=== PATIENT | male | born 1960 | race Caucasian/White ===

== ENCOUNTER 2021-07-01 20:02 | Emergency (ER) | payer OTHER ==
[~2021-07-01] VITALS: Ht 182.9 cm; Wt 90.9 kg
[~2021-07-01 20:02] MED LIST: DULO20CA27 PO; MIRT-89 PO; PANT-31 PO
[2021-07-02 00:59] LABS: BASOPHILS % (AUTO) 0.9 % (0.0-2.0); EOSINOPHILS % (AUTO) 2.6 % (1.0-6.0); HEMATOCRIT 46.2 % (41-53); HEMOGLOBIN 15.7 g/dL (13.5-17.5); LYMPHOCYTES % (AUTO) 30.3 % (22.0-44.0); MEAN CORPUSCULAR HEMOGLOBIN 28.2 pg (26.0-34.0); MEAN CORPUSCULAR HGB CONC 34.1 G/dL (31.0-37.0); MEAN CORPUSCULAR VOLUME 83 fL (80-100); MONOCYTES # (AUTO) 0.6 K/uL (0.1-1.0); MONOCYTES % (AUTO) 9.3 % (2.0-9.0); NEUTROPHILS # (AUTO) 3.7 K/uL (1.8-7.7); NEUTROPHILS % (AUTO) 56.9 % (40.0-70.0); PLATELET COUNT (AUTO) 197 K/uL (150-450); RED BLOOD CELL COUNT(AUTO) 5.59 MIL/uL (4.50-5.90); RED CELL DISTRIBUTION WIDTH 16.3 % (11.5-14.5)
[2021-07-02 01:12] LABS: ANION GAP 11 mmol/L (8-16); CALCIUM, TOTAL 9.2 mg/dL (8.8-10.5); CARBON DIOXIDE 26 mmol/L (22-29); CHLORIDE 103 mmol/L (98-107); CREATININE 0.79 mg/dL (0.60-1.30); GLOMERULAR FILTR. RATE CALC > 60 mL/min (>60); GLUCOSE,RANDOM 102 mg/dL (70-110); POTASSIUM 3.5 mmol/L (3.5-5.1); SODIUM SERUM 140 mmol/L (136-145); UREA NITROGEN, BLOOD 7 mg/dL (7-18)
[2021-07-02 01:19] LABS: ALANINE AMINOTRANSFERASE 90 U/L (12-78); ALBUMIN 3.3 g/dL (3.4-5.0); ALKALINE PHOSPHATASE 97 U/L (46-116); ASPARTATE AMINOTRANSFERASE 85 U/L (15-37); BILIRUBIN,TOTAL 0.9 mg/dL (0.1-1.0); TOTAL PROTEIN, SERUM 6.7 g/dL (6.4-8.2)
[2021-07-02] MEDS ORDERED: HYDROCODONE/ACETAMINOPHEN 5-325 MG TABLET PO ONE (03:00)
[2021-07-02 03:15] VITALS: BP 143/81
== END 2021-07-02 03:37 | disposition home or self-care (01) ==
LOC: EMS 20:05
DX: S90.31XA Contusion of right foot, initial encounter (principal); M25.552 Pain in left hip; R79.89 Other specified abnormal findings of blood chemistry; J45.909 Unspecified asthma, uncomplicated; F14.90 Cocaine use, unspecified, uncomplicated; F12.90 Cannabis use, unspecified, uncomplicated; F17.210 Nicotine dependence, cigarettes, uncomplicated; Z96.642 Presence of left artificial hip joint; W22.8XXA Striking against or struck by other objects, initial encounter; Y93.89 Activity, other specified; Y92.89 Other specified places as the place of occurrence of the external cause; Y99.8 Other external cause status
CPT/HCPCS: 36415; 73503; 73630; 80053; 84484; 85025; 99284; G0480

== ENCOUNTER 2021-07-03 02:51 | Emergency (ER) | payer OTHER ==
[~2021-07-03] VITALS: Ht 177.8 cm; Wt 86.4 kg
[2021-07-03 04:00] VITALS: BP 132/85
== END 2021-07-03 04:30 | disposition home or self-care (01) ==
LOC: EMS 02:52
DX: F41.9 Anxiety disorder, unspecified (principal); F17.210 Nicotine dependence, cigarettes, uncomplicated; F14.90 Cocaine use, unspecified, uncomplicated; F12.90 Cannabis use, unspecified, uncomplicated; M19.90 Unspecified osteoarthritis, unspecified site
CPT/HCPCS: 99283; Z7502

== ENCOUNTER 2021-07-03 06:56 | Emergency (ER) | payer OTHER | END 2021-07-03 08:26 | disposition left against medical advice (07) | LOC: EMS 06:56 | DX: Z53.21 Procedure and treatment not carried out due to patient leaving prior to being seen by health care provider (principal) | CPT/HCPCS: 93005 ==

== ENCOUNTER 2021-07-14 21:30 | Inpatient (IN) | payer MEDICAID, OTHER ==
[~2021-07-14] VITALS: Ht 177.8 cm; Wt 105.7 kg
[2021-07-14 23:25] LABS: COVID AG,FIA SOURCE NASOPHARYNGEAL
[2021-07-14 23:28] LABS: BASOPHILS % (AUTO) 0.6 % (0.0-2.0); EOSINOPHILS % (AUTO) 2.3 % (1.0-6.0); HEMATOCRIT 49.3 % (41-53); HEMOGLOBIN 16.4 g/dL (13.5-17.5); LYMPHOCYTES # (AUTO) 2.1 K/uL (1.0-4.8); LYMPHOCYTES % (AUTO) 32.1 % (22.0-44.0); MEAN CORPUSCULAR HEMOGLOBIN 28.1 pg (26.0-34.0); MEAN CORPUSCULAR HGB CONC 33.2 G/dL (31.0-37.0); MEAN CORPUSCULAR VOLUME 85 fL (80-100); MONOCYTES # (AUTO) 0.5 K/uL (0.1-1.0); MONOCYTES % (AUTO) 8.4 % (2.0-9.0); NEUTROPHILS # (AUTO) 3.7 K/uL (1.8-7.7); NEUTROPHILS % (AUTO) 56.6 % (40.0-70.0); PLATELET COUNT (AUTO) 215 K/uL (150-450); RED BLOOD CELL COUNT(AUTO) 5.82 MIL/uL (4.50-5.90)
[2021-07-14 23:37] LABS: AMPHET/METH SCREEN,URINE NEGATIVE (NEGATIVE); BARBITURATE SCREEN, URINE NEGATIVE (NEGATIVE); BENZODIAZEPINES SCREEN,URINE NEGATIVE (NEGATIVE); CANNABINOID SCREEN,URINE POSITIVE (NEGATIVE); COCAINE SCREEN,URINE POSITIVE (NEGATIVE); METHADONE SCREEN, URINE NEGATIVE (NEGATIVE); OPIATE SCREEN,URINE NEGATIVE (NEGATIVE)
[2021-07-14 23:37] LABS: ANION GAP 13 mmol/L (8-16); CARBON DIOXIDE 26 mmol/L (22-29); CHLORIDE 104 mmol/L (98-107); CREATININE 0.86 mg/dL (0.60-1.30); GLOMERULAR FILTR. RATE CALC > 60 mL/min (>60); GLUCOSE,RANDOM 111 mg/dL (70-110); POTASSIUM 3.6 mmol/L (3.5-5.1); SODIUM SERUM 143 mmol/L (136-145); UREA NITROGEN, BLOOD 4 mg/dL (7-18)
[2021-07-14 23:40] LABS: PHENCYCLIDINE SCREEN,URINE NEGATIVE (NEGATIVE)
[2021-07-14 23:43] LABS: ALANINE AMINOTRANSFERASE 87 U/L (12-78); ALBUMIN 3.5 g/dL (3.4-5.0); ALKALINE PHOSPHATASE 82 U/L (46-116); ASPARTATE AMINOTRANSFERASE 70 U/L (15-37); BILIRUBIN,TOTAL 0.6 mg/dL (0.1-1.0); TOTAL PROTEIN, SERUM 7.2 g/dL (6.4-8.2)
[2021-07-15] VITALS (10 sets, daily range): BP systolic 113–152; BP diastolic 70–91
[2021-07-15] MEDS ORDERED: ZOLPIDEM TARTRATE 10 MG TABLET PO PRN (01:15)
[2021-07-15] MEDS ORDERED: OLANZapine 5 MG RAPDIS TABLET PO PRN (01:15)
[2021-07-15 07:33] LABS: APPEARANCE,URINE CLEAR (CLEAR); BILIRUBIN,URINE NEGATIVE (NEGATIVE); GLUCOSE, URINE (UA) NEGATIVE (NEGATIVE); KETONES,URINE NEGATIVE (NEGATIVE); LEUKOCYTE ESTERASE ,URINE NEGATIVE (NEGATIVE); NITRATE,URINE NEGATIVE (NEGATIVE); OCCULT BLOOD,URINE NEGATIVE (NEGATIVE); PH,URINE 5.5 (5.0-8.0); PROTEIN,URINE NEGATIVE (NEGATIVE); UROBILINOGEN,URINE 0.2 mg/dL (<=1.0)
[2021-07-15] MEDS ORDERED: MAGNESIUM HYDROXIDE SUSPENSION 30 ML UDCUP PO PRN (10:15)
[2021-07-15] MEDS ORDERED: PROMETHAZINE HCL 25 MG TABLET PO PRN (10:15)
[2021-07-15] MEDS ORDERED: GuaiFENesin/D-METHORPHAN [SUGAR-FREE] 200-20MG/10 ML SYRUP UDCUP PO PRN (10:15)
[2021-07-15] MEDS ORDERED: TUBERCULIN, PURIFIED PROTEIN DERIVATIVE 5 TU/0.1 ML SYRINGE ID ONE (10:15)
[2021-07-15] MEDS ORDERED: MAG HYDROX/AL HYDROX/SIMETH ES 30 ML SUSPENSION UDCUP PO PRN (10:15)
[2021-07-15] MEDS ORDERED: LOPERAMIDE HCL 2 MG CAPSULE PO PRN (10:15)
[2021-07-15] MEDS ORDERED: HydrOXYzine PAMOATE 50 MG CAPSULE PO PRN (10:15)
[2021-07-15] MEDS: ACETAMINOPHEN 325 MG TABLET PO PRN ×2 (14:44→20:50)
[2021-07-15] MEDS: THIAMINE 100 MG TABLET PO SCH (16:28)
[2021-07-15] MEDS: MELATONIN 5 MG TABLET PO SCH (20:06)
[2021-07-15] MEDS ORDERED: MIRTAZAPINE 15 MG TABLET PO SCH (21:00)
[2021-07-16] VITALS (7 sets, daily range): BP systolic 119–159; BP diastolic 68–93
[2021-07-16] MEDS: ALBUTEROL SULFATE HFA 90 MCG/PUFF 8 GM INHALER IH PRN (05:11)
[2021-07-16] MEDS: ACETAMINOPHEN 325 MG TABLET PO PRN ×4 (05:12→22:27)
[2021-07-16 07:47] LABS: HEMOGLOBIN A1C 5.2 % (3.8-5.6)
[2021-07-16 08:00] LABS: CHOL/HDL RATIO 1.8 (4.2-7.3); FREE T4 (FREE THYROXINE) 0.89 ng/dL (0.76-1.46); THYROID STIMULATING HORMONE 0.63 uIU/mL (0.36-3.74)
[2021-07-16] MEDS: DULoxetine HCL 20 MG CAPSULE PO SCH (09:38)
[2021-07-16] MEDS: MULTIVITAMINS WITH MINERALS, THERAPEUTIC TABLET PO SCH (09:38)
[2021-07-16] MEDS: OMEGA-3/DHA/EPA/FISH OIL 1,000 MG CAPSULE PO SCH (09:38)
[2021-07-16] MEDS: NALTREXONE HCL 50 MG TABLET PO SCH (09:38)
[2021-07-16] MEDS: DIVALPROEX SODIUM 500 MG ER TABLET PO SCH ×3 (09:38→16:53)
[2021-07-16] MEDS: GABAPENTIN 300 MG CAPSULE PO SCH ×3 (09:38→16:53)
[2021-07-16] MEDS: FOLIC ACID 1 MG TABLET PO SCH (09:39)
[2021-07-16] MEDS: THIAMINE 100 MG TABLET PO SCH ×2 (09:39→16:53)
[2021-07-16] MEDS: LORazepam 2 MG TABLET PO PRN (16:53)
[2021-07-16] MEDS ORDERED: OLANZapine 5 MG RAPDIS TABLET PO SCH (21:00)
[2021-07-16] MEDS: MELATONIN 5 MG TABLET PO SCH (21:09)
[2021-07-16] MEDS: OLANZapine 10 MG RAPDIS TABLET PO SCH (21:10)
[2021-07-17] MEDS: DULoxetine HCL 20 MG CAPSULE PO SCH (08:49)
[2021-07-17] MEDS: GABAPENTIN 300 MG CAPSULE PO SCH ×3 (08:49→16:40)
[2021-07-17] MEDS: MULTIVITAMINS WITH MINERALS, THERAPEUTIC TABLET PO SCH (08:49)
[2021-07-17] MEDS: FOLIC ACID 1 MG TABLET PO SCH (08:49)
[2021-07-17] MEDS: THIAMINE 100 MG TABLET PO SCH ×2 (08:49→16:40)
[2021-07-17] MEDS: OMEGA-3/DHA/EPA/FISH OIL 1,000 MG CAPSULE PO SCH (08:49)
[2021-07-17] MEDS: NALTREXONE HCL 50 MG TABLET PO SCH (08:49)
[2021-07-17] MEDS: DIVALPROEX SODIUM 500 MG ER TABLET PO SCH ×4 (08:49→20:07)
[2021-07-17] MEDS: LORazepam 2 MG TABLET PO PRN (08:51)
[2021-07-17 09:30] VITALS: BP 127/86
[2021-07-17] MEDS: ALBUTEROL SULFATE HFA 90 MCG/PUFF 8 GM INHALER IH PRN (14:00)
[2021-07-17] MEDS ORDERED: NALT50TA PO (16:11)
[2021-07-17] MEDS ORDERED: GABA-1181 PO (16:11)
[2021-07-17] MEDS ORDERED: OLAN10TA26 PO (16:11)
[2021-07-17] MEDS ORDERED: DIVA-80 PO (16:11)
[2021-07-17] MEDS ORDERED: OMEG-135 PO (16:11)
[2021-07-17] MEDS ORDERED: DULO20CA27 PO (16:11)
[2021-07-17] MEDS ORDERED: MELA5TAB40 PO (16:11)
[2021-07-17 18:12] VITALS: BP 145/80
[2021-07-17] MEDS: MELATONIN 5 MG TABLET PO SCH (20:08)
[2021-07-17] MEDS: OLANZapine 10 MG RAPDIS TABLET PO SCH (20:09)
[2021-07-18] MEDS: DIVALPROEX SODIUM 500 MG ER TABLET PO SCH ×2 (08:08→12:20)
[2021-07-18] MEDS: GABAPENTIN 300 MG CAPSULE PO SCH ×2 (08:08→12:20)
[2021-07-18] MEDS: MULTIVITAMINS WITH MINERALS, THERAPEUTIC TABLET PO SCH (08:08)
[2021-07-18] MEDS: THIAMINE 100 MG TABLET PO SCH (08:08)
[2021-07-18] MEDS: FOLIC ACID 1 MG TABLET PO SCH (08:09)
[2021-07-18] MEDS: NALTREXONE HCL 50 MG TABLET PO SCH (08:09)
[2021-07-18] MEDS: DULoxetine HCL 20 MG CAPSULE PO SCH (08:09)
[2021-07-18] MEDS: OMEGA-3/DHA/EPA/FISH OIL 1,000 MG CAPSULE PO SCH (08:09)
[2021-07-18 08:17] VITALS: BP 170/99
== END 2021-07-18 12:49 | disposition home or self-care (01) | DRG 754 ==
LOC: EMS 21:42 → 3EX 07-15 05:00
PROVIDERS: ADMIT Psychiatry & Neurology Psychiatry; ATTEND Psychiatry & Neurology Psychiatry
DX: F32.9 Major depressive disorder, single episode, unspecified (principal); Z91.19 Patient's noncompliance with other medical treatment and regimen; R45.851 Suicidal ideations; F14.90 Cocaine use, unspecified, uncomplicated; F41.0 Panic disorder [episodic paroxysmal anxiety]; F43.10 Post-traumatic stress disorder, unspecified; M16.12 Unilateral primary osteoarthritis, left hip; J44.9 Chronic obstructive pulmonary disease, unspecified; R53.82 Chronic fatigue, unspecified; Z87.891 Personal history of nicotine dependence; Z96.649 Presence of unspecified artificial hip joint; Z20.822 Contact with and (suspected) exposure to COVID-19; Z79.899 Other long term (current) drug therapy
CPT/HCPCS: 80053; 80061; 80164; 81003; 83036; 84439; 84443; 85025; 86592; 99285; G0378; G0480; J3535; Q9967

== ENCOUNTER 2021-07-25 01:14 | Emergency (ER) | payer MEDICAID, OTHER ==
[~2021-07-25] VITALS: Ht 177.8 cm; Wt 102.3 kg
[~2021-07-25 01:14] MED LIST changes: +DIVA-80 PO; +GABA-1181 PO; +MELA5TAB40 PO; -MIRT-89 PO; +NALT50TA PO; +OLAN10TA26 PO; +OMEG-135 PO; -PANT-31 PO
[2021-07-25] MEDS ORDERED: ACETAMINOPHEN 500 MG TABLET PO ONE (01:45)
[2021-07-25 02:15] LABS: BASOPHILS % (AUTO) 0.6 % (0.0-2.0); EOSINOPHILS % (AUTO) 2.6 % (1.0-6.0); HEMATOCRIT 43.5 % (41-53); HEMOGLOBIN 14.6 g/dL (13.5-17.5); LYMPHOCYTES # (AUTO) 2.2 K/uL (1.0-4.8); LYMPHOCYTES % (AUTO) 35.3 % (22.0-44.0); MEAN CORPUSCULAR HEMOGLOBIN 28.3 pg (26.0-34.0); MEAN CORPUSCULAR HGB CONC 33.6 G/dL (31.0-37.0); MEAN CORPUSCULAR VOLUME 84 fL (80-100); MONOCYTES # (AUTO) 0.6 K/uL (0.1-1.0); MONOCYTES % (AUTO) 10.4 % (2.0-9.0); NEUTROPHILS # (AUTO) 3.2 K/uL (1.8-7.7); NEUTROPHILS % (AUTO) 51.1 % (40.0-70.0); PLATELET COUNT (AUTO) 200 K/uL (150-450); RED BLOOD CELL COUNT(AUTO) 5.15 MIL/uL (4.50-5.90); RED CELL DISTRIBUTION WIDTH 15.6 % (11.5-14.5)
[2021-07-25 02:23] LABS: ANION GAP 4 mmol/L (8-16); CALCIUM, TOTAL 8.3 mg/dL (8.8-10.5); CARBON DIOXIDE 32 mmol/L (22-29); CHLORIDE 104 mmol/L (98-107); CREATININE 0.95 mg/dL (0.60-1.30); GLOMERULAR FILTR. RATE CALC > 60 mL/min (>60); GLUCOSE,RANDOM 105 mg/dL (70-110); POTASSIUM 3.8 mmol/L (3.5-5.1); SODIUM SERUM 140 mmol/L (136-145); UREA NITROGEN, BLOOD 8 mg/dL (7-18)
[2021-07-25 02:29] LABS: ALANINE AMINOTRANSFERASE 64 U/L (12-78); ALBUMIN 3.1 g/dL (3.4-5.0); ALKALINE PHOSPHATASE 73 U/L (46-116); ASPARTATE AMINOTRANSFERASE 45 U/L (15-37); BILIRUBIN,TOTAL 0.3 mg/dL (0.1-1.0); TOTAL PROTEIN, SERUM 6.4 g/dL (6.4-8.2)
[2021-07-25 04:01] VITALS: BP 96/64
== END 2021-07-25 05:44 | disposition home or self-care (01) ==
LOC: EMS 01:15
DX: M25.512 Pain in left shoulder (principal); F10.129 Alcohol abuse with intoxication, unspecified; J45.909 Unspecified asthma, uncomplicated; F17.210 Nicotine dependence, cigarettes, uncomplicated; F12.90 Cannabis use, unspecified, uncomplicated; F14.90 Cocaine use, unspecified, uncomplicated; Z88.5 Allergy status to narcotic agent; Y90.6 Blood alcohol level of 120-199 mg/100 ml
CPT/HCPCS: 36415; 73030; 80053; 85025; 99284; G0480; 99283

== ENCOUNTER 2021-08-09 04:16 | Emergency (ER) | payer OTHER ==
[~2021-08-09] VITALS: Ht 177.8 cm; Wt 96.0 kg
[2021-08-09 05:03] LABS: COVID AG,FIA SOURCE NASOPHARYNGEAL
[2021-08-09 05:15] LABS: ANION GAP 13 mmol/L (8-16); CALCIUM, TOTAL 8.5 mg/dL (8.8-10.5); CARBON DIOXIDE 24 mmol/L (22-29); CHLORIDE 103 mmol/L (98-107); CREATININE 0.82 mg/dL (0.60-1.30); GLOMERULAR FILTR. RATE CALC > 60 mL/min (>60); GLUCOSE,RANDOM 103 mg/dL (70-110); POTASSIUM 3.6 mmol/L (3.5-5.1); SODIUM SERUM 140 mmol/L (136-145); UREA NITROGEN, BLOOD 5 mg/dL (7-18)
[2021-08-09] MEDS ORDERED: LORazepam 1 MG TABLET PO ONE (05:15)
[2021-08-09 05:17] LABS: BASOPHILS % (AUTO) 1.1 % (0.0-2.0); EOSINOPHILS % (AUTO) 2.9 % (1.0-6.0); HEMATOCRIT 44.7 % (41-53); LYMPHOCYTES # (AUTO) 1.7 K/uL (1.0-4.8); LYMPHOCYTES % (AUTO) 29.5 % (22.0-44.0); MEAN CORPUSCULAR HEMOGLOBIN 28.5 pg (26.0-34.0); MEAN CORPUSCULAR HGB CONC 33.6 G/dL (31.0-37.0); MEAN CORPUSCULAR VOLUME 85 fL (80-100); MONOCYTES # (AUTO) 0.5 K/uL (0.1-1.0); MONOCYTES % (AUTO) 8.3 % (2.0-9.0); NEUTROPHILS # (AUTO) 3.4 K/uL (1.8-7.7); NEUTROPHILS % (AUTO) 58.2 % (40.0-70.0); PLATELET COUNT (AUTO) 239 K/uL (150-450); RED BLOOD CELL COUNT(AUTO) 5.27 MIL/uL (4.50-5.90)
[2021-08-09 05:21] LABS: ALANINE AMINOTRANSFERASE 99 U/L (12-78); ALBUMIN 3.3 g/dL (3.4-5.0); ALKALINE PHOSPHATASE 86 U/L (46-116); ASPARTATE AMINOTRANSFERASE 102 U/L (15-37); BILIRUBIN,TOTAL 0.7 mg/dL (0.1-1.0); TOTAL PROTEIN, SERUM 6.7 g/dL (6.4-8.2)
[2021-08-09 07:08] VITALS: BP 119/73
== END 2021-08-09 07:44 | disposition home or self-care (01) ==
LOC: EMS 04:19
DX: F41.9 Anxiety disorder, unspecified (principal); J45.909 Unspecified asthma, uncomplicated; F12.90 Cannabis use, unspecified, uncomplicated; F14.90 Cocaine use, unspecified, uncomplicated; F17.210 Nicotine dependence, cigarettes, uncomplicated; Z88.5 Allergy status to narcotic agent; Z79.899 Other long term (current) drug therapy; Z20.822 Contact with and (suspected) exposure to COVID-19
CPT/HCPCS: 36415; 80053; 85025; 87426; 99283; G0480

== ENCOUNTER 2021-08-12 03:25 | Emergency (ER) | payer OTHER ==
[~2021-08-12] VITALS: Ht 175.3 cm; Wt 90.0 kg
[2021-08-12 03:51] LABS: COVID AG,FIA SOURCE NASAL SWAB
[2021-08-12 04:30] VITALS: BP 134/73
== END 2021-08-12 04:38 | disposition home or self-care (01) ==
LOC: EMS 03:27
DX: F43.21 Adjustment disorder with depressed mood (principal); J45.909 Unspecified asthma, uncomplicated; F12.90 Cannabis use, unspecified, uncomplicated; F14.90 Cocaine use, unspecified, uncomplicated; F17.210 Nicotine dependence, cigarettes, uncomplicated; Z88.5 Allergy status to narcotic agent; Z79.899 Other long term (current) drug therapy; Z20.822 Contact with and (suspected) exposure to COVID-19
CPT/HCPCS: 99283

== ENCOUNTER 2021-08-18 06:40 | Emergency (ER) | payer OTHER ==
[~2021-08-18] VITALS: Ht 177.8 cm; Wt 102.3 kg
[~2021-08-18 06:40] MED LIST changes: +OMEG-108 PO; -OMEG-135 PO
[2021-08-18 07:31] LABS: BASOPHILS % (AUTO) 0.8 % (0.0-2.0); EOSINOPHILS % (AUTO) 0.7 % (1.0-6.0); HEMATOCRIT 44.4 % (41-53); HEMOGLOBIN 14.9 g/dL (13.5-17.5); LYMPHOCYTES # (AUTO) 1.1 K/uL (1.0-4.8); LYMPHOCYTES % (AUTO) 19.5 % (22.0-44.0); MEAN CORPUSCULAR HEMOGLOBIN 28.9 pg (26.0-34.0); MEAN CORPUSCULAR HGB CONC 33.5 G/dL (31.0-37.0); MEAN CORPUSCULAR VOLUME 86 fL (80-100); MONOCYTES # (AUTO) 0.5 K/uL (0.1-1.0); MONOCYTES % (AUTO) 8.9 % (2.0-9.0); NEUTROPHILS # (AUTO) 4.1 K/uL (1.8-7.7); NEUTROPHILS % (AUTO) 70.1 % (40.0-70.0); PLATELET COUNT (AUTO) 165 K/uL (150-450); RED BLOOD CELL COUNT(AUTO) 5.15 MIL/uL (4.50-5.90); RED CELL DISTRIBUTION WIDTH 14.6 % (11.5-14.5)
[2021-08-18 07:42] LABS: APPEARANCE,URINE CLOUDY (CLEAR); BILIRUBIN,URINE NEGATIVE (NEGATIVE); GLUCOSE, URINE (UA) NEGATIVE (NEGATIVE); KETONES,URINE 40 mg/dL (NEGATIVE); LEUKOCYTE ESTERASE ,URINE TRACE (NEGATIVE); NITRATE,URINE NEGATIVE (NEGATIVE); OCCULT BLOOD,URINE NEGATIVE (NEGATIVE); PROTEIN,URINE NEGATIVE (NEGATIVE)
[2021-08-18 07:47] LABS: ANION GAP 11 mmol/L (8-16); CALCIUM, TOTAL 9.1 mg/dL (8.8-10.5); CARBON DIOXIDE 24 mmol/L (22-29); CHLORIDE 101 mmol/L (98-107); CREATININE 0.71 mg/dL (0.60-1.30); GLOMERULAR FILTR. RATE CALC > 60 mL/min (>60); GLUCOSE,RANDOM 101 mg/dL (70-110); POTASSIUM 3.4 mmol/L (3.5-5.1); SODIUM SERUM 136 mmol/L (136-145); UREA NITROGEN, BLOOD 5 mg/dL (7-18)
[2021-08-18 07:52] LABS: AMPHET/METH SCREEN,URINE NEGATIVE (NEGATIVE); BARBITURATE SCREEN, URINE NEGATIVE (NEGATIVE); BENZODIAZEPINES SCREEN,URINE NEGATIVE (NEGATIVE); CANNABINOID SCREEN,URINE POSITIVE (NEGATIVE); COCAINE SCREEN,URINE NEGATIVE (NEGATIVE); METHADONE SCREEN, URINE NEGATIVE (NEGATIVE); OPIATE SCREEN,URINE NEGATIVE (NEGATIVE)
[2021-08-18 07:54] LABS: PHENCYCLIDINE SCREEN,URINE NEGATIVE (NEGATIVE)
[2021-08-18 07:56] LABS: B-TYPE NATRIURETIC PEPTIDE 5 pg/mL (0-100)
[2021-08-18 07:57] LABS: PROTHROMBIN TIME 10.4 SEC (9.4-11.6)
[2021-08-18 08:09] LABS: AMORPHOUS SEDIMENT,UR Moderate /LPF (None Seen); BACTERIA,URINE None Seen /HPF (None Seen); RBC,URINE None Seen /HPF (0-2); WBC,URINE 0-2 /HPF (0-5)
[2021-08-18 08:15] LABS: ALANINE AMINOTRANSFERASE 99 U/L (12-78); ALBUMIN 3.4 g/dL (3.4-5.0); ALKALINE PHOSPHATASE 78 U/L (46-116); ASPARTATE AMINOTRANSFERASE 98 U/L (15-37); BILIRUBIN,TOTAL 1.1 mg/dL (0.1-1.0); CREATINE KINASE, TOTAL ONLY 423 U/L (39-308); TOTAL PROTEIN, SERUM 6.9 g/dL (6.4-8.2)
[2021-08-18 09:23] VITALS: BP 135/83
== END 2021-08-18 10:10 | disposition home or self-care (01) ==
LOC: EMS 06:42
DX: R07.89 Other chest pain (principal); J45.909 Unspecified asthma, uncomplicated; F17.210 Nicotine dependence, cigarettes, uncomplicated; F12.90 Cannabis use, unspecified, uncomplicated; F14.90 Cocaine use, unspecified, uncomplicated; Z88.5 Allergy status to narcotic agent; Z79.899 Other long term (current) drug therapy
CPT/HCPCS: 36415; 71045; 80053; 80307; 81001; 82550; 82553; 83880; 84484; 85025; 85610; 85730; 93005; 99285; G0480

== ENCOUNTER 2021-09-09 01:13 | Inpatient (IN) | payer MEDICAID, OTHER ==
[~2021-09-09] VITALS: Ht 177.8 cm; Wt 102.0 kg
[2021-09-09] MEDS ORDERED: LORazepam 1 MG TABLET PO ONE (01:45)
[2021-09-09 01:54] LABS: BASOPHILS % (AUTO) 0.5 % (0.0-2.0); EOSINOPHILS % (AUTO) 2.1 % (1.0-6.0); HEMATOCRIT 43.2 % (41-53); HEMOGLOBIN 14.7 g/dL (13.5-17.5); LYMPHOCYTES # (AUTO) 1.8 K/uL (1.0-4.8); MEAN CORPUSCULAR HEMOGLOBIN 29.7 pg (26.0-34.0); MEAN CORPUSCULAR HGB CONC 34.1 G/dL (31.0-37.0); MEAN CORPUSCULAR VOLUME 87 fL (80-100); MONOCYTES # (AUTO) 0.5 K/uL (0.1-1.0); NEUTROPHILS # (AUTO) 4.1 K/uL (1.8-7.7); NEUTROPHILS % (AUTO) 62.4 % (40.0-70.0); PLATELET COUNT (AUTO) 211 K/uL (150-450); RED BLOOD CELL COUNT(AUTO) 4.95 MIL/uL (4.50-5.90); RED CELL DISTRIBUTION WIDTH 14.6 % (11.5-14.5)
[2021-09-09 02:01] LABS: ANION GAP 12 mmol/L (8-16); CALCIUM, TOTAL 8.7 mg/dL (8.8-10.5); CARBON DIOXIDE 24 mmol/L (22-29); CHLORIDE 101 mmol/L (98-107); CREATININE 0.76 mg/dL (0.60-1.30); GLOMERULAR FILTR. RATE CALC > 60 mL/min (>60); GLUCOSE,RANDOM 87 mg/dL (70-110); POTASSIUM 3.7 mmol/L (3.5-5.1); SODIUM SERUM 137 mmol/L (136-145); UREA NITROGEN, BLOOD 7 mg/dL (7-18)
[2021-09-09 02:07] LABS: ALANINE AMINOTRANSFERASE 71 U/L (12-78); ALBUMIN 3.4 g/dL (3.4-5.0); ALKALINE PHOSPHATASE 77 U/L (46-116); ASPARTATE AMINOTRANSFERASE 76 U/L (15-37); BILIRUBIN,TOTAL 0.9 mg/dL (0.1-1.0); TOTAL PROTEIN, SERUM 6.9 g/dL (6.4-8.2); VALPROIC ACID < 3 mcg/mL (50-100)
[2021-09-09] MEDS ORDERED: ZOLPIDEM TARTRATE 10 MG TABLET PO PRN (03:00)
[2021-09-09 03:40] LABS: COVID AG,FIA SOURCE NASAL SWAB
[2021-09-09 05:52] LABS: AMPHET/METH SCREEN,URINE POSITIVE (NEGATIVE); BENZODIAZEPINES SCREEN,URINE NEGATIVE (NEGATIVE); CANNABINOID SCREEN,URINE POSITIVE (NEGATIVE); COCAINE SCREEN,URINE NEGATIVE (NEGATIVE); METHADONE SCREEN, URINE NEGATIVE (NEGATIVE); OPIATE SCREEN,URINE NEGATIVE (NEGATIVE)
[2021-09-09 06:07] LABS: BARBITURATE SCREEN, URINE NEGATIVE (NEGATIVE)
[2021-09-09 06:08] LABS: PHENCYCLIDINE SCREEN,URINE NEGATIVE (NEGATIVE)
[2021-09-09 06:24] LABS: APPEARANCE,URINE CLEAR (CLEAR); BILIRUBIN,URINE NEGATIVE (NEGATIVE); GLUCOSE, URINE (UA) NEGATIVE (NEGATIVE); KETONES,URINE NEGATIVE (NEGATIVE); LEUKOCYTE ESTERASE ,URINE SMALL (NEGATIVE); NITRATE,URINE NEGATIVE (NEGATIVE); OCCULT BLOOD,URINE NEGATIVE (NEGATIVE); PROTEIN,URINE TRACE mg/dL (NEGATIVE); SPECIFIC GRAVITIY, URINE 1.024 (1.003-1.030); UROBILINOGEN,URINE <=1.0 mg/dL (<=1.0)
[2021-09-09 06:36] LABS: BACTERIA,URINE None Seen /HPF (None Seen); CALCIUM OXALATE CRYSTALS,UR Few /LPF (None Seen); RBC,URINE 0-2 /HPF (0-2); WBC,URINE 0-2 /HPF (0-5)
[2021-09-09] MEDS ORDERED: ALBUTEROL SULFATE 2.5 MG/0.5 ML NEB SOLUTION NEB ONE (08:30)
[2021-09-09] MEDS ORDERED: DiphenhydrAMINE HCL 50 MG/ML VIAL IM ONE (09:45)
[2021-09-09] MEDS ORDERED: LORazepam 2 MG/ML VIAL IM ONE (09:45)
[2021-09-09] MEDS ORDERED: HALOPERIDOL LACTATE 5 MG/ML VIAL IM ONE (09:45)
[2021-09-09 11:21] VITALS: BP 103/63
[2021-09-09] MEDS ORDERED: MAG HYDROX/AL HYDROX/SIMETH ES 30 ML SUSPENSION UDCUP PO PRN (12:00)
[2021-09-09] MEDS ORDERED: PROMETHAZINE HCL 25 MG TABLET PO PRN (12:00)
[2021-09-09] MEDS ORDERED: TUBERCULIN, PURIFIED PROTEIN DERIVATIVE 5 TU/0.1 ML SYRINGE ID ONE (12:00)
[2021-09-09] MEDS ORDERED: ACETAMINOPHEN 325 MG TABLET PO PRN (12:00)
[2021-09-09] MEDS ORDERED: HydrOXYzine PAMOATE 50 MG CAPSULE PO PRN (12:00)
[2021-09-09] MEDS ORDERED: GuaiFENesin/D-METHORPHAN [SUGAR-FREE] 200-20MG/10 ML SYRUP UDCUP PO PRN (12:00)
[2021-09-09] MEDS ORDERED: LOPERAMIDE HCL 2 MG CAPSULE PO PRN (12:00)
[2021-09-09] MEDS ORDERED: MAGNESIUM HYDROXIDE SUSPENSION 30 ML UDCUP PO PRN (12:00)
[2021-09-09] MEDS ORDERED: INFLUENZA VIRUS VACCINE QVS 2021-22 (6MO+)/PF 60 MCG/0.5 ML SYRINGE IM. ONE (14:30)
[2021-09-09 16:32] VITALS: BP 106/82
[2021-09-09] MEDS: THIAMINE 100 MG TABLET PO SCH (16:59)
[2021-09-09] MEDS: LORazepam 2 MG TABLET PO PRN (17:11)
[2021-09-09] MEDS: OLANZapine 5 MG RAPDIS TABLET PO PRN (17:12)
[2021-09-09] MEDS: OLANZapine 5 MG RAPDIS TABLET PO SCH (20:03)
[2021-09-09] MEDS: MELATONIN 5 MG TABLET PO SCH (20:03)
[2021-09-10 08:19] VITALS: BP 130/77
[2021-09-10] MEDS: THIAMINE 100 MG TABLET PO SCH ×2 (09:32→16:53)
[2021-09-10] MEDS: OMEGA-3/DHA/EPA/FISH OIL 1,000 MG CAPSULE PO SCH (09:32)
[2021-09-10] MEDS: LORazepam 2 MG TABLET PO PRN (09:32)
[2021-09-10] MEDS: FOLIC ACID 1 MG TABLET PO SCH (09:32)
[2021-09-10] MEDS: MULTIVITAMINS WITH MINERALS, THERAPEUTIC TABLET PO SCH (09:32)
[2021-09-10] MEDS: NALTREXONE HCL 50 MG TABLET PO SCH (09:34)
[2021-09-10] MEDS ORDERED: PALIPERIDONE PALMITATE 234 MG/1.5 ML SYRINGE IM ONE (14:30)
[2021-09-10] MEDS ORDERED: NALT50TA PO (14:38)
[2021-09-10] MEDS ORDERED: OMEG-108 PO (14:38)
[2021-09-10] MEDS ORDERED: MELA5TAB40 PO (14:38)
[2021-09-10] MEDS ORDERED: OLAN5TAB94 PO (14:38)
[2021-09-10 16:19] VITALS: BP 126/77
[2021-09-10] MEDS: OLANZapine 5 MG RAPDIS TABLET PO SCH (20:43)
[2021-09-10] MEDS: MELATONIN 5 MG TABLET PO SCH (20:43)
[2021-09-11 03:07] VITALS: BP 141/80
[2021-09-11] MEDS: LORazepam 2 MG TABLET PO PRN (03:13)
[2021-09-11] MEDS: OLANZapine 5 MG RAPDIS TABLET PO PRN (03:13)
[2021-09-11 08:07] VITALS: BP 137/68
[2021-09-11] MEDS: THIAMINE 100 MG TABLET PO SCH (08:39)
[2021-09-11] MEDS: MULTIVITAMINS WITH MINERALS, THERAPEUTIC TABLET PO SCH (08:39)
[2021-09-11] MEDS: OMEGA-3/DHA/EPA/FISH OIL 1,000 MG CAPSULE PO SCH (08:39)
[2021-09-11] MEDS: NALTREXONE HCL 50 MG TABLET PO SCH (08:39)
[2021-09-11] MEDS: FOLIC ACID 1 MG TABLET PO SCH (08:39)
[2021-09-14] MEDS ORDERED: PALIPERIDONE PALMITATE 156 MG/ML SYRINGE IM ONE (09:00)
== END 2021-09-11 09:15 | disposition home or self-care (01) | DRG 750 ==
LOC: EMS 01:14 → B2S 08:37
PROVIDERS: ADMIT Psychiatry & Neurology Psychiatry; ATTEND Psychiatry & Neurology Psychiatry
DX: F25.1 Schizoaffective disorder, depressive type (principal); F12.90 Cannabis use, unspecified, uncomplicated; F17.200 Nicotine dependence, unspecified, uncomplicated; Z96.649 Presence of unspecified artificial hip joint; Z20.822 Contact with and (suspected) exposure to COVID-19; K21.9 Gastro-esophageal reflux disease without esophagitis; Z55.9 Problems related to education and literacy, unspecified; Z59.9 Problem related to housing and economic circumstances, unspecified; Z63.9 Problem related to primary support group, unspecified; Z65.3 Problems related to other legal circumstances; Z88.5 Allergy status to narcotic agent; Z79.899 Other long term (current) drug therapy
CPT/HCPCS: 80053; 80164; 81001; 85025; 94640; 99291; G0480; J1200; J1630; J2060; Q9967

== ENCOUNTER 2021-10-03 11:48 | Emergency (ER) | payer MEDICAID, OTHER ==
[~2021-10-03] VITALS: Ht 177.8 cm; Wt 104.0 kg
[~2021-10-03 11:48] MED LIST changes: -DIVA-80 PO; -DULO20CA27 PO; -GABA-1181 PO; -OLAN10TA26 PO; +OLAN5TAB94 PO
[2021-10-03 11:51] VITALS: BP 98/55
[2021-10-03] MEDS ORDERED: IBUP-2759 PO (11:51)
[2021-10-03 13:18] LABS: BASOPHILS % (AUTO) 0.7 % (0.0-2.0); EOSINOPHILS % (AUTO) 0.9 % (1.0-6.0); HEMATOCRIT 46.1 % (41-53); HEMOGLOBIN 15.8 g/dL (13.5-17.5); LYMPHOCYTES # (AUTO) 1.8 K/uL (1.0-4.8); LYMPHOCYTES % (AUTO) 19.9 % (22.0-44.0); MEAN CORPUSCULAR HGB CONC 34.3 G/dL (31.0-37.0); MEAN CORPUSCULAR VOLUME 88 fL (80-100); MONOCYTES # (AUTO) 0.7 K/uL (0.1-1.0); MONOCYTES % (AUTO) 8.1 % (2.0-9.0); NEUTROPHILS # (AUTO) 6.3 K/uL (1.8-7.7); NEUTROPHILS % (AUTO) 70.4 % (40.0-70.0); PLATELET COUNT (AUTO) 238 K/uL (150-450); RED BLOOD CELL COUNT(AUTO) 5.27 MIL/uL (4.50-5.90); RED CELL DISTRIBUTION WIDTH 13.6 % (11.5-14.5)
[2021-10-03 13:27] LABS: ANION GAP 9 mmol/L (8-16); CALCIUM, TOTAL 9.1 mg/dL (8.8-10.5); CARBON DIOXIDE 29 mmol/L (22-29); CHLORIDE 99 mmol/L (98-107); CREATININE 0.91 mg/dL (0.60-1.30); GLOMERULAR FILTR. RATE CALC > 60 mL/min (>60); GLUCOSE,RANDOM 101 mg/dL (70-110); POTASSIUM 3.8 mmol/L (3.5-5.1); SODIUM SERUM 137 mmol/L (136-145); UREA NITROGEN, BLOOD 9 mg/dL (7-18)
[2021-10-03 13:31] LABS: AMPHET/METH SCREEN,URINE NEGATIVE (NEGATIVE); BARBITURATE SCREEN, URINE NEGATIVE (NEGATIVE); BENZODIAZEPINES SCREEN,URINE NEGATIVE (NEGATIVE); CANNABINOID SCREEN,URINE POSITIVE (NEGATIVE); COCAINE SCREEN,URINE POSITIVE (NEGATIVE); METHADONE SCREEN, URINE NEGATIVE (NEGATIVE); OPIATE SCREEN,URINE NEGATIVE (NEGATIVE)
[2021-10-03 13:32] LABS: ALANINE AMINOTRANSFERASE 41 U/L (12-78); ALBUMIN 3.4 g/dL (3.4-5.0); ALKALINE PHOSPHATASE 76 U/L (46-116); ASPARTATE AMINOTRANSFERASE 27 U/L (15-37); BILIRUBIN,TOTAL 0.7 mg/dL (0.1-1.0)
[2021-10-03 13:36] LABS: PHENCYCLIDINE SCREEN,URINE NEGATIVE (NEGATIVE)
[2021-10-03 14:25] LABS: COVID AG,FIA SOURCE NASAL SWAB
[2021-10-03] MEDS ORDERED: LORazepam 1 MG TABLET PO ONE (17:00)
== END 2021-10-03 18:08 ==
LOC: EMS 11:53
DX: F25.1 Schizoaffective disorder, depressive type (principal); M25.572 Pain in left ankle and joints of left foot; M25.571 Pain in right ankle and joints of right foot; M25.562 Pain in left knee; M25.561 Pain in right knee; M19.90 Unspecified osteoarthritis, unspecified site; J45.909 Unspecified asthma, uncomplicated; F12.90 Cannabis use, unspecified, uncomplicated; F17.210 Nicotine dependence, cigarettes, uncomplicated; Z86.79 Personal history of other diseases of the circulatory system; Z96.649 Presence of unspecified artificial hip joint; Z88.6 Allergy status to analgesic agent; Z20.822 Contact with and (suspected) exposure to COVID-19; Z59.00 Homelessness unspecified
CPT/HCPCS: 36415; 80053; 80307; 85025; 87426; 99285; G0480

== ENCOUNTER 2021-10-05 13:47 | Inpatient (IN) | payer MEDICAID, OTHER ==
[~2021-10-05] VITALS: Ht 177.8 cm; Wt 95.3 kg
[~2021-10-05 13:47] MED LIST changes: +IBUP-2759 PO
[2021-10-05 15:14] LABS: BASOPHILS % (AUTO) 0.5 % (0.0-2.0); EOSINOPHILS % (AUTO) 1.2 % (1.0-6.0); HEMATOCRIT 44.1 % (41-53); HEMOGLOBIN 15.4 g/dL (13.5-17.5); LYMPHOCYTES # (AUTO) 1.4 K/uL (1.0-4.8); LYMPHOCYTES % (AUTO) 17.4 % (22.0-44.0); MEAN CORPUSCULAR HEMOGLOBIN 30.3 pg (26.0-34.0); MEAN CORPUSCULAR HGB CONC 34.8 G/dL (31.0-37.0); MEAN CORPUSCULAR VOLUME 87 fL (80-100); MONOCYTES # (AUTO) 0.5 K/uL (0.1-1.0); MONOCYTES % (AUTO) 6.7 % (2.0-9.0); NEUTROPHILS # (AUTO) 5.9 K/uL (1.8-7.7); NEUTROPHILS % (AUTO) 74.2 % (40.0-70.0); PLATELET COUNT (AUTO) 215 K/uL (150-450); RED BLOOD CELL COUNT(AUTO) 5.06 MIL/uL (4.50-5.90); RED CELL DISTRIBUTION WIDTH 13.9 % (11.5-14.5)
[2021-10-05 15:21] LABS: ANION GAP 13 mmol/L (8-16); CALCIUM, TOTAL 9.1 mg/dL (8.8-10.5); CARBON DIOXIDE 27 mmol/L (22-29); CHLORIDE 99 mmol/L (98-107); CREATININE 0.74 mg/dL (0.60-1.30); GLOMERULAR FILTR. RATE CALC > 60 mL/min (>60); GLUCOSE,RANDOM 97 mg/dL (70-110); SODIUM SERUM 139 mmol/L (136-145); UREA NITROGEN, BLOOD 11 mg/dL (7-18)
[2021-10-05 15:27] LABS: ALANINE AMINOTRANSFERASE 40 U/L (12-78); ALBUMIN 3.5 g/dL (3.4-5.0); ALKALINE PHOSPHATASE 74 U/L (46-116); ASPARTATE AMINOTRANSFERASE 31 U/L (15-37); BILIRUBIN,TOTAL 1.2 mg/dL (0.1-1.0)
[2021-10-05] MEDS ORDERED: ZOLPIDEM TARTRATE 10 MG TABLET PO PRN (16:30)
[2021-10-05] MEDS ORDERED: OLANZapine 5 MG RAPDIS TABLET PO PRN (16:30)
[2021-10-05 18:51] LABS: COVID AG,FIA SOURCE NASOPHARYNGEAL
[2021-10-05 20:37] LABS: APPEARANCE,URINE HAZY (CLEAR); BILIRUBIN,URINE NEGATIVE (NEGATIVE); GLUCOSE, URINE (UA) NEGATIVE (NEGATIVE); KETONES,URINE NEGATIVE (NEGATIVE); LEUKOCYTE ESTERASE ,URINE NEGATIVE (NEGATIVE); NITRATE,URINE NEGATIVE (NEGATIVE); OCCULT BLOOD,URINE NEGATIVE (NEGATIVE); PH,URINE 6.5 (5.0-8.0); PROTEIN,URINE NEGATIVE (NEGATIVE); SPECIFIC GRAVITIY, URINE 1.015 (1.003-1.030); UROBILINOGEN,URINE <=1.0 mg/dL (<=1.0)
[2021-10-05 20:42] LABS: AMPHET/METH SCREEN,URINE NEGATIVE (NEGATIVE); BARBITURATE SCREEN, URINE NEGATIVE (NEGATIVE); BENZODIAZEPINES SCREEN,URINE NEGATIVE (NEGATIVE); CANNABINOID SCREEN,URINE POSITIVE (NEGATIVE); COCAINE SCREEN,URINE NEGATIVE (NEGATIVE); METHADONE SCREEN, URINE NEGATIVE (NEGATIVE); OPIATE SCREEN,URINE NEGATIVE (NEGATIVE); PHENCYCLIDINE SCREEN,URINE NEGATIVE (NEGATIVE)
[2021-10-05] MEDS: LORazepam 2 MG TABLET PO PRN (22:17)
[2021-10-06 04:22] VITALS: BP 141/83
[2021-10-06] MEDS ORDERED: PNEUMOCOCCAL VACCINE POLYVALENT 0.5 ML VIAL [PPSV23] IM. ONE (04:45)
[2021-10-06] MEDS: LORazepam 2 MG TABLET PO PRN (05:28)
[2021-10-06 08:50] VITALS: BP 109/77
[2021-10-06] MEDS ORDERED: MAGNESIUM HYDROXIDE SUSPENSION 30 ML UDCUP PO PRN (10:30)
[2021-10-06] MEDS ORDERED: LORazepam 1 MG TABLET PO PRN (10:30)
[2021-10-06] MEDS ORDERED: PALIPERIDONE PALMITATE 234 MG/1.5 ML SYRINGE IM ONE (10:30)
[2021-10-06] MEDS ORDERED: LOPERAMIDE HCL 2 MG CAPSULE PO PRN (10:30)
[2021-10-06] MEDS ORDERED: ZOLPIDEM TARTRATE 10 MG TABLET PO PRN (10:30)
[2021-10-06] MEDS ORDERED: MAG HYDROX/AL HYDROX/SIMETH ES 30 ML SUSPENSION UDCUP PO PRN (10:30)
[2021-10-06] MEDS ORDERED: LORazepam 2 MG TABLET PO PRN (10:30)
[2021-10-06] MEDS ORDERED: PALIPERIDONE PALMITATE 156 MG/ML SYRINGE IM ONE (10:30)
[2021-10-06] MEDS ORDERED: OLANZapine 5 MG RAPDIS TABLET PO PRN (10:30)
[2021-10-06] MEDS ORDERED: ACETAMINOPHEN 325 MG TABLET PO PRN (10:30)
[2021-10-06] MEDS ORDERED: PROMETHAZINE HCL 25 MG TABLET PO PRN (10:30)
[2021-10-06 16:31] VITALS: BP 121/64
[2021-10-06] MEDS ORDERED: MELATONIN 5 MG TABLET PO SCH (21:00)
[2021-10-06] MEDS ORDERED: OLANZapine 5 MG RAPDIS TABLET PO SCH (21:00)
[2021-10-07 01:09] VITALS: BP 119/65
[2021-10-07] MEDS ORDERED: OMEGA-3/DHA/EPA/FISH OIL 1,000 MG CAPSULE PO SCH (09:00)
[2021-10-07] MEDS ORDERED: NALTREXONE HCL 50 MG TABLET PO SCH (09:00)
[2021-10-07 09:12] VITALS: BP 121/75
[2021-10-07] MEDS ORDERED: NALT50TA PO (13:54)
[2021-10-07] MEDS ORDERED: OLAN5TAB94 PO (13:54)
[2021-10-07] MEDS ORDERED: OMEG-108 PO (13:54)
[2021-10-07] MEDS ORDERED: MELA5TAB40 PO (13:54)
[2021-10-07 16:12] VITALS: BP 136/72
[2021-10-10] MEDS ORDERED: PALIPERIDONE PALMITATE 156 MG/ML SYRINGE IM ONE (09:00)
== END 2021-10-07 19:42 | disposition home or self-care (01) | DRG 750 ==
LOC: EMS 13:47 → B2S 10-06 00:05
PROVIDERS: ADMIT Psychiatry & Neurology Psychiatry; ATTEND Psychiatry & Neurology Psychiatry
DX: F25.1 Schizoaffective disorder, depressive type (principal); R45.851 Suicidal ideations; F22 Delusional disorders; K21.9 Gastro-esophageal reflux disease without esophagitis; F43.10 Post-traumatic stress disorder, unspecified; J44.9 Chronic obstructive pulmonary disease, unspecified; Z20.822 Contact with and (suspected) exposure to COVID-19; F41.0 Panic disorder [episodic paroxysmal anxiety]; Z96.642 Presence of left artificial hip joint; F17.210 Nicotine dependence, cigarettes, uncomplicated; Z55.9 Problems related to education and literacy, unspecified; Z59.9 Problem related to housing and economic circumstances, unspecified; Z95.0 Presence of cardiac pacemaker; Z65.3 Problems related to other legal circumstances; Z59.00 Homelessness unspecified; Z63.9 Problem related to primary support group, unspecified; Z88.5 Allergy status to narcotic agent
CPT/HCPCS: 80053; 81003; 85025; 87081; 90732; 99285; G0480; Q9967

== ENCOUNTER 2021-10-08 21:34 | Emergency (ER) | payer MEDICAID, OTHER ==
[~2021-10-08] VITALS: Ht 177.8 cm; Wt 96.0 kg
[~2021-10-08 21:34] MED LIST changes: -IBUP-2759 PO
[2021-10-08 21:43] VITALS: BP 126/70
[2021-10-08 22:16] LABS: BASOPHILS % (AUTO) 0.7 % (0.0-2.0); EOSINOPHILS % (AUTO) 0.9 % (1.0-6.0); HEMATOCRIT 47.2 % (41-53); HEMOGLOBIN 16.3 g/dL (13.5-17.5); LYMPHOCYTES # (AUTO) 1.8 K/uL (1.0-4.8); LYMPHOCYTES % (AUTO) 19.8 % (22.0-44.0); MEAN CORPUSCULAR HEMOGLOBIN 30.1 pg (26.0-34.0); MEAN CORPUSCULAR HGB CONC 34.5 G/dL (31.0-37.0); MEAN CORPUSCULAR VOLUME 87 fL (80-100); MONOCYTES # (AUTO) 0.7 K/uL (0.1-1.0); MONOCYTES % (AUTO) 8.2 % (2.0-9.0); NEUTROPHILS # (AUTO) 6.4 K/uL (1.8-7.7); NEUTROPHILS % (AUTO) 70.4 % (40.0-70.0); PLATELET COUNT (AUTO) 211 K/uL (150-450); RED CELL DISTRIBUTION WIDTH 13.7 % (11.5-14.5)
[2021-10-08 22:25] LABS: AMPHET/METH SCREEN,URINE NEGATIVE (NEGATIVE); BARBITURATE SCREEN, URINE NEGATIVE (NEGATIVE); BENZODIAZEPINES SCREEN,URINE NEGATIVE (NEGATIVE); CANNABINOID SCREEN,URINE POSITIVE (NEGATIVE); COCAINE SCREEN,URINE NEGATIVE (NEGATIVE); METHADONE SCREEN, URINE NEGATIVE (NEGATIVE); OPIATE SCREEN,URINE NEGATIVE (NEGATIVE); PHENCYCLIDINE SCREEN,URINE NEGATIVE (NEGATIVE)
[2021-10-08 22:30] LABS: ANION GAP 7 mmol/L (8-16); CALCIUM, TOTAL 9.3 mg/dL (8.8-10.5); CARBON DIOXIDE 32 mmol/L (22-29); CHLORIDE 100 mmol/L (98-107); CREATININE 0.85 mg/dL (0.60-1.30); GLOMERULAR FILTR. RATE CALC > 60 mL/min (>60); GLUCOSE,RANDOM 86 mg/dL (70-110); POTASSIUM 4.1 mmol/L (3.5-5.1); SODIUM SERUM 139 mmol/L (136-145); UREA NITROGEN, BLOOD 11 mg/dL (7-18)
[2021-10-08 22:35] LABS: ALANINE AMINOTRANSFERASE 38 U/L (12-78); ALBUMIN 3.8 g/dL (3.4-5.0); ALKALINE PHOSPHATASE 85 U/L (46-116); ASPARTATE AMINOTRANSFERASE 23 U/L (15-37); BILIRUBIN,TOTAL 0.7 mg/dL (0.1-1.0)
[2021-10-09 01:16] LABS: COVID AG,FIA SOURCE NASAL SWAB
== END 2021-10-09 03:42 | disposition home or self-care (01) ==
LOC: EMS 21:37
DX: F32.9 Major depressive disorder, single episode, unspecified (principal); J45.909 Unspecified asthma, uncomplicated; F17.210 Nicotine dependence, cigarettes, uncomplicated; Z88.5 Allergy status to narcotic agent; Z79.899 Other long term (current) drug therapy; Z20.822 Contact with and (suspected) exposure to COVID-19
CPT/HCPCS: 36415; 80053; 80307; 85025; 87426; 99284; G0480

== ENCOUNTER 2021-12-30 09:37 | Inpatient (IN) | payer MEDICAID, OTHER ==
[~2021-12-30] VITALS: Ht 177.8 cm; Wt 100.0 kg
[2021-12-30] MEDS ORDERED: LORazepam 2 MG TABLET PO ONE (10:15)
[2021-12-30 10:16] LABS: BASOPHILS % (AUTO) 0.5 % (0.0-2.0); EOSINOPHILS % (AUTO) 0.5 % (1.0-6.0); HEMATOCRIT 45.1 % (41-53); HEMOGLOBIN 15.5 g/dL (13.5-17.5); LYMPHOCYTES # (AUTO) 1.3 K/uL (1.0-4.8); LYMPHOCYTES % (AUTO) 17.4 % (22.0-44.0); MEAN CORPUSCULAR HEMOGLOBIN 29.8 pg (26.0-34.0); MEAN CORPUSCULAR HGB CONC 34.4 G/dL (31.0-37.0); MEAN CORPUSCULAR VOLUME 87 fL (80-100); MONOCYTES # (AUTO) 0.4 K/uL (0.1-1.0); MONOCYTES % (AUTO) 5.8 % (2.0-9.0); NEUTROPHILS # (AUTO) 5.9 K/uL (1.8-7.7); NEUTROPHILS % (AUTO) 75.8 % (40.0-70.0); PLATELET COUNT (AUTO) 222 K/uL (150-450); RED BLOOD CELL COUNT(AUTO) 5.21 MIL/uL (4.50-5.90); RED CELL DISTRIBUTION WIDTH 13.4 % (11.5-14.5)
[2021-12-30 10:26] LABS: ANION GAP 7 mmol/L (8-16); CALCIUM, TOTAL 9.3 mg/dL (8.8-10.5); CARBON DIOXIDE 28 mmol/L (22-29); CHLORIDE 100 mmol/L (98-107); CREATININE 0.86 mg/dL (0.60-1.30); GLOMERULAR FILTR. RATE CALC > 60 mL/min (>60); GLUCOSE,RANDOM 105 mg/dL (70-110); POTASSIUM 3.8 mmol/L (3.5-5.1); SODIUM SERUM 135 mmol/L (136-145); UREA NITROGEN, BLOOD 9 mg/dL (7-18)
[2021-12-30 10:31] LABS: ALANINE AMINOTRANSFERASE 18 U/L (12-78); ALBUMIN 3.6 g/dL (3.4-5.0); ALKALINE PHOSPHATASE 82 U/L (46-116); ASPARTATE AMINOTRANSFERASE 11 U/L (15-37); BILIRUBIN,TOTAL 0.5 mg/dL (0.1-1.0); TOTAL PROTEIN, SERUM 7.4 g/dL (6.4-8.2)
[2021-12-30 10:33] LABS: B-TYPE NATRIURETIC PEPTIDE 11 pg/mL (0-100)
[2021-12-30 10:34] LABS: COVID AG,FIA SOURCE NASOPHARYNGEAL
[2021-12-30 10:44] LABS: AMPHET/METH SCREEN,URINE NEGATIVE (NEGATIVE); BARBITURATE SCREEN, URINE NEGATIVE (NEGATIVE); BENZODIAZEPINES SCREEN,URINE NEGATIVE (NEGATIVE); CANNABINOID SCREEN,URINE POSITIVE (NEGATIVE); COCAINE SCREEN,URINE NEGATIVE (NEGATIVE); METHADONE SCREEN, URINE NEGATIVE (NEGATIVE); OPIATE SCREEN,URINE NEGATIVE (NEGATIVE); PHENCYCLIDINE SCREEN,URINE NEGATIVE (NEGATIVE)
[2021-12-30] MEDS ORDERED: LORazepam 2 MG TABLET PO PRN (14:00)
[2021-12-30] MEDS ORDERED: OLANZapine 5 MG RAPDIS TABLET PO PRN (14:00)
[2021-12-30 14:29] LABS: APPEARANCE,URINE CLEAR (CLEAR); BILIRUBIN,URINE NEGATIVE (NEGATIVE); GLUCOSE, URINE (UA) NEGATIVE (NEGATIVE); KETONES,URINE NEGATIVE (NEGATIVE); LEUKOCYTE ESTERASE ,URINE SMALL (NEGATIVE); NITRATE,URINE NEGATIVE (NEGATIVE); OCCULT BLOOD,URINE NEGATIVE (NEGATIVE); PROTEIN,URINE NEGATIVE (NEGATIVE); SPECIFIC GRAVITIY, URINE 1.009 (1.003-1.030); UROBILINOGEN,URINE <=1.0 mg/dL (<=1.0)
[2021-12-30 14:37] LABS: BACTERIA,URINE None Seen /HPF (None Seen); RBC,URINE None Seen /HPF (0-2); SQUAMOUS EPITHELIAL CELL,UR Few /LPF (None Seen); WBC,URINE 0-2 /HPF (0-5)
[2021-12-30 17:15] VITALS: BP 153/91
[2021-12-30] MEDS: ZOLPIDEM TARTRATE 10 MG TABLET PO PRN (20:36)
[2021-12-31 08:43] VITALS: BP 142/83
[2021-12-31] MEDS ORDERED: MAG HYDROX/AL HYDROX/SIMETH ES 30 ML SUSPENSION UDCUP PO PRN (10:15)
[2021-12-31] MEDS ORDERED: GuaiFENesin/D-METHORPHAN [SUGAR-FREE] 200-20MG/10 ML SYRUP UDCUP PO PRN (10:15)
[2021-12-31] MEDS ORDERED: PROMETHAZINE HCL 25 MG TABLET PO PRN (10:15)
[2021-12-31] MEDS ORDERED: LOPERAMIDE HCL 2 MG CAPSULE PO PRN (10:15)
[2021-12-31] MEDS ORDERED: ACETAMINOPHEN 325 MG TABLET PO PRN (10:15)
[2021-12-31] MEDS ORDERED: MAGNESIUM HYDROXIDE SUSPENSION 30 ML UDCUP PO PRN (10:15)
[2021-12-31] MEDS ORDERED: HydrOXYzine PAMOATE 50 MG CAPSULE PO PRN (10:15)
[2021-12-31] MEDS: THIAMINE 100 MG TABLET PO SCH (16:29)
[2021-12-31 16:33] VITALS: BP 121/77
[2021-12-31] MEDS: OLANZapine 5 MG RAPDIS TABLET PO SCH (20:09)
[2021-12-31] MEDS: MELATONIN 5 MG TABLET PO SCH (20:09)
[2022-01-01 06:34] LABS: HEMOGLOBIN A1C 5.2 % (3.8-5.6)
[2022-01-01 07:14] LABS: CHOL/HDL RATIO 2.8 (4.2-7.3); FREE T4 (FREE THYROXINE) 0.96 ng/dL (0.76-1.46)
[2022-01-01 07:36] LABS: THYROID STIMULATING HORMONE 1.89 uIU/mL (0.36-3.74)
[2022-01-01 08:00] VITALS: BP 144/81
[2022-01-01] MEDS: THIAMINE 100 MG TABLET PO SCH ×2 (08:49→16:31)
[2022-01-01] MEDS: OMEGA-3/DHA/EPA/FISH OIL 1,000 MG CAPSULE PO SCH (08:49)
[2022-01-01] MEDS: FOLIC ACID 1 MG TABLET PO SCH (08:49)
[2022-01-01] MEDS: MULTIVITAMINS WITH MINERALS, THERAPEUTIC TABLET PO SCH (08:49)
[2022-01-01] MEDS: NALTREXONE HCL 50 MG TABLET PO SCH (08:49)
[2022-01-01] MEDS ORDERED: DULoxetine HCL 20 MG CAPSULE PO SCH (09:00)
[2022-01-01 16:08] VITALS: BP 119/47
[2022-01-01] MEDS ORDERED: MELA5TAB40 PO (16:12)
[2022-01-01] MEDS ORDERED: OMEG-108 PO (16:12)
[2022-01-01] MEDS ORDERED: DULO20CA71 PO (16:12)
[2022-01-01] MEDS ORDERED: NALT50TA PO (16:12)
[2022-01-01] MEDS ORDERED: OLAN5TAB94 PO (16:12)
[2022-01-01] MEDS: MELATONIN 5 MG TABLET PO SCH (20:56)
[2022-01-01] MEDS: OLANZapine 5 MG RAPDIS TABLET PO SCH (20:56)
[2022-01-01] MEDS: ZOLPIDEM TARTRATE 10 MG TABLET PO PRN (22:13)
[2022-01-02 08:30] VITALS: BP 151/90
[2022-01-02] MEDS: NALTREXONE HCL 50 MG TABLET PO SCH (08:56)
[2022-01-02] MEDS: OMEGA-3/DHA/EPA/FISH OIL 1,000 MG CAPSULE PO SCH (08:56)
[2022-01-02] MEDS: FOLIC ACID 1 MG TABLET PO SCH (08:56)
[2022-01-02] MEDS: THIAMINE 100 MG TABLET PO SCH (08:56)
[2022-01-02] MEDS: MULTIVITAMINS WITH MINERALS, THERAPEUTIC TABLET PO SCH (08:56)
[2022-01-02] MEDS ORDERED: DULoxetine HCL 30 MG CAPSULE PO SCH (09:00)
== END 2022-01-02 16:30 | disposition home or self-care (01) | DRG 750 ==
LOC: EMS 09:37 → 3EI 14:38
PROVIDERS: ADMIT Psychiatry & Neurology Psychiatry; ATTEND Psychiatry & Neurology Psychiatry
DX: F25.1 Schizoaffective disorder, depressive type (principal); F17.210 Nicotine dependence, cigarettes, uncomplicated; F32.A Depression, unspecified; Z20.822 Contact with and (suspected) exposure to COVID-19; M19.90 Unspecified osteoarthritis, unspecified site; Z96.641 Presence of right artificial hip joint; J45.909 Unspecified asthma, uncomplicated; Z88.6 Allergy status to analgesic agent
CPT/HCPCS: 71045; 80053; 80061; 81001; 83036; 83880; 84439; 84443; 84484; 85025; 86592; 93005; 99285; G0480; Q9967; 36415-L1; 36415-TC

== ENCOUNTER 2022-01-08 06:21 | Emergency (ER) | payer MEDICAID, OTHER ==
[~2022-01-08] VITALS: Ht 177.8 cm; Wt 100.0 kg
[~2022-01-08 06:21] MED LIST changes: +DULO20CA71 PO
[2022-01-08 06:57] LABS: BASOPHILS % (AUTO) 0.8 % (0.0-2.0); EOSINOPHILS % (AUTO) 2.6 % (1.0-6.0); HEMATOCRIT 40.9 % (41-53); HEMOGLOBIN 14.2 g/dL (13.5-17.5); LYMPHOCYTES # (AUTO) 2.2 K/uL (1.0-4.8); LYMPHOCYTES % (AUTO) 29.8 % (22.0-44.0); MEAN CORPUSCULAR HEMOGLOBIN 29.7 pg (26.0-34.0); MEAN CORPUSCULAR HGB CONC 34.8 G/dL (31.0-37.0); MEAN CORPUSCULAR VOLUME 86 fL (80-100); MONOCYTES # (AUTO) 0.6 K/uL (0.1-1.0); MONOCYTES % (AUTO) 8.8 % (2.0-9.0); NEUTROPHILS # (AUTO) 4.2 K/uL (1.8-7.7); PLATELET COUNT (AUTO) 184 K/uL (150-450); RED BLOOD CELL COUNT(AUTO) 4.78 MIL/uL (4.50-5.90); RED CELL DISTRIBUTION WIDTH 13.4 % (11.5-14.5)
[2022-01-08 07:07] LABS: ANION GAP 6 mmol/L (8-16); CALCIUM, TOTAL 8.8 mg/dL (8.8-10.5); CARBON DIOXIDE 28 mmol/L (22-29); CHLORIDE 102 mmol/L (98-107); GLUCOSE,RANDOM 108 mg/dL (70-110); POTASSIUM 3.8 mmol/L (3.5-5.1); SODIUM SERUM 136 mmol/L (136-145); UREA NITROGEN, BLOOD 9 mg/dL (7-18)
[2022-01-08 07:10] LABS: GLOMERULAR FILTR. RATE CALC > 60 mL/min (>60)
[2022-01-08 07:14] LABS: B-TYPE NATRIURETIC PEPTIDE 8 pg/mL (0-100)
[2022-01-08 07:32] LABS: ALANINE AMINOTRANSFERASE 19 U/L (12-78); ALBUMIN 3.3 g/dL (3.4-5.0); ALKALINE PHOSPHATASE 78 U/L (46-116); ASPARTATE AMINOTRANSFERASE 14 U/L (15-37); BILIRUBIN,TOTAL 0.7 mg/dL (0.1-1.0); CREATINE KINASE, TOTAL ONLY 133 U/L (39-308); TOTAL PROTEIN, SERUM 6.3 g/dL (6.4-8.2)
[2022-01-08] MEDS ORDERED: DULO-114 PO (08:50)
[2022-01-08] MEDS ORDERED: OLAN10TA26 PO (08:51)
[2022-01-08 09:05] LABS: APPEARANCE,URINE CLEAR (CLEAR); BILIRUBIN,URINE NEGATIVE (NEGATIVE); GLUCOSE, URINE (UA) NEGATIVE (NEGATIVE); KETONES,URINE NEGATIVE (NEGATIVE); LEUKOCYTE ESTERASE ,URINE NEGATIVE (NEGATIVE); NITRATE,URINE NEGATIVE (NEGATIVE); OCCULT BLOOD,URINE NEGATIVE (NEGATIVE); PH,URINE 6.5 (5.0-8.0); PROTEIN,URINE NEGATIVE (NEGATIVE); SPECIFIC GRAVITIY, URINE 1.006 (1.003-1.030); UROBILINOGEN,URINE <=1.0 mg/dL (<=1.0)
[2022-01-08 09:11] LABS: AMPHET/METH SCREEN,URINE NEGATIVE (NEGATIVE); BARBITURATE SCREEN, URINE NEGATIVE (NEGATIVE); BENZODIAZEPINES SCREEN,URINE NEGATIVE (NEGATIVE); CANNABINOID SCREEN,URINE POSITIVE (NEGATIVE); COCAINE SCREEN,URINE NEGATIVE (NEGATIVE); METHADONE SCREEN, URINE NEGATIVE (NEGATIVE); OPIATE SCREEN,URINE NEGATIVE (NEGATIVE)
[2022-01-08 09:13] LABS: PHENCYCLIDINE SCREEN,URINE NEGATIVE (NEGATIVE)
[2022-01-08 10:30] VITALS: BP 122/76
== END 2022-01-08 10:56 | disposition home or self-care (01) ==
LOC: EMS 06:21
DX: R07.9 Chest pain, unspecified (principal); F41.9 Anxiety disorder, unspecified; M19.90 Unspecified osteoarthritis, unspecified site; J45.909 Unspecified asthma, uncomplicated; F32.A Depression, unspecified; I10 Essential (primary) hypertension; F20.9 Schizophrenia, unspecified; F17.210 Nicotine dependence, cigarettes, uncomplicated; Z86.79 Personal history of other diseases of the circulatory system; Z96.641 Presence of right artificial hip joint; Z88.5 Allergy status to narcotic agent
CPT/HCPCS: 99285; 71045; 80053; 82550; 83880; 84484; 85025; 36415; 93005; 80307; 81003; G0480

== ENCOUNTER 2022-03-15 14:34 | Inpatient (IN) | payer MEDICAID, OTHER ==
[~2022-03-15] VITALS: Ht 177.8 cm; Wt 105.8 kg
[~2022-03-15 14:34] MED LIST changes: +DULO-114 PO; +OLAN10TA26 PO; -OMEG-108 PO; +OMEG-135 PO
[2022-03-15] MEDS ORDERED: LORazepam 1 MG TABLET PO ONE (14:45)
[2022-03-15] MEDS ORDERED: OLANZapine 5 MG TABLET PO ONE (14:45)
[2022-03-15 15:04] LABS: BASOPHILS % (AUTO) 0.6 % (0.0-2.0); EOSINOPHILS % (AUTO) 1.9 % (1.0-6.0); HEMATOCRIT 46.5 % (41-53); LYMPHOCYTES # (AUTO) 2.4 K/uL (1.0-4.8); LYMPHOCYTES % (AUTO) 25.5 % (22.0-44.0); MEAN CORPUSCULAR HEMOGLOBIN 29.7 pg (26.0-34.0); MEAN CORPUSCULAR HGB CONC 34.3 G/dL (31.0-37.0); MEAN CORPUSCULAR VOLUME 87 fL (80-100); MONOCYTES # (AUTO) 0.6 K/uL (0.1-1.0); MONOCYTES % (AUTO) 6.4 % (2.0-9.0); NEUTROPHILS # (AUTO) 6.2 K/uL (1.8-7.7); NEUTROPHILS % (AUTO) 65.6 % (40.0-70.0); PLATELET COUNT (AUTO) 219 K/uL (150-450); RED BLOOD CELL COUNT(AUTO) 5.38 MIL/uL (4.50-5.90); RED CELL DISTRIBUTION WIDTH 12.9 % (11.5-14.5)
[2022-03-15 15:11] LABS: ANION GAP 10 mmol/L (8-16); CALCIUM, TOTAL 9.3 mg/dL (8.8-10.5); CARBON DIOXIDE 25 mmol/L (22-29); CHLORIDE 102 mmol/L (98-107); CREATININE 1.05 mg/dL (0.60-1.30); GLUCOSE,RANDOM 110 mg/dL (70-110); POTASSIUM 3.7 mmol/L (3.5-5.1); SODIUM SERUM 137 mmol/L (136-145); UREA NITROGEN, BLOOD 11 mg/dL (7-18)
[2022-03-15 15:12] LABS: GLOMERULAR FILTR. RATE CALC > 60 mL/min (>60)
[2022-03-15 15:17] LABS: ALANINE AMINOTRANSFERASE 17 U/L (12-78); ALBUMIN 3.8 g/dL (3.4-5.0); ALKALINE PHOSPHATASE 90 U/L (46-116); ASPARTATE AMINOTRANSFERASE 12 U/L (15-37); BILIRUBIN,TOTAL 0.4 mg/dL (0.1-1.0); TOTAL PROTEIN, SERUM 7.4 g/dL (6.4-8.2)
[2022-03-15 15:23] LABS: AMPHET/METH SCREEN,URINE NEGATIVE (NEGATIVE); BARBITURATE SCREEN, URINE NEGATIVE (NEGATIVE); BENZODIAZEPINES SCREEN,URINE NEGATIVE (NEGATIVE); CANNABINOID SCREEN,URINE POSITIVE (NEGATIVE); COCAINE SCREEN,URINE NEGATIVE (NEGATIVE); METHADONE SCREEN, URINE NEGATIVE (NEGATIVE); OPIATE SCREEN,URINE NEGATIVE (NEGATIVE); PHENCYCLIDINE SCREEN,URINE NEGATIVE (NEGATIVE)
[2022-03-15 16:07] LABS: COVID AG,FIA SOURCE NASOPHARYNGEAL
[2022-03-15] MEDS ORDERED: ZOLPIDEM TARTRATE 10 MG TABLET PO PRN (17:15)
[2022-03-16 00:40] VITALS: BP 150/80
[2022-03-16] MEDS ORDERED: BENZOCAINE/MENTHOL LOZENGE PO PRN (06:30)
[2022-03-16] MEDS ORDERED: DOCUSATE SODIUM 100 MG CAPSULE PO PRN (06:30)
[2022-03-16] MEDS ORDERED: MAG HYDROX/AL HYDROX/SIMETH ES 30 ML SUSPENSION UDCUP PO PRN (06:30)
[2022-03-16] MEDS ORDERED: PETROLATUM,WHITE 28 GM JELLY TP PRN (06:30)
[2022-03-16] MEDS ORDERED: ACETAMINOPHEN 325 MG TABLET PO PRN (06:30)
[2022-03-16] MEDS ORDERED: OMEPRAZOLE 20 MG CAPSULE PO PRN (06:30)
[2022-03-16] MEDS ORDERED: LOPERAMIDE HCL 2 MG CAPSULE PO PRN (06:30)
[2022-03-16] MEDS ORDERED: CloNIDine HCL 0.1 MG TABLET PO PRN (06:30)
[2022-03-16] MEDS ORDERED: BACITRACIN 28 GM OINTMENT TP PRN (06:30)
[2022-03-16] MEDS ORDERED: IBUPROFEN 600 MG TABLET PO PRN (06:30)
[2022-03-16] MEDS ORDERED: ONDANSETRON HCL 4 MG TABLET PO PRN (06:30)
[2022-03-16] MEDS ORDERED: MAGNESIUM HYDROXIDE SUSPENSION 30 ML UDCUP PO PRN (06:30)
[2022-03-16] MEDS ORDERED: ALBUTEROL SULFATE HFA 90 MCG/PUFF 8 GM INHALER IH PRN (06:30)
[2022-03-16 08:00] VITALS: BP 169/96
[2022-03-16 08:14] LABS: APPEARANCE,URINE CLEAR (CLEAR); BILIRUBIN,URINE NEGATIVE (NEGATIVE); GLUCOSE, URINE (UA) NEGATIVE (NEGATIVE); KETONES,URINE NEGATIVE (NEGATIVE); LEUKOCYTE ESTERASE ,URINE NEGATIVE (NEGATIVE); NITRATE,URINE NEGATIVE (NEGATIVE); OCCULT BLOOD,URINE NEGATIVE (NEGATIVE); PH,URINE 5.5 (5.0-8.0); PROTEIN,URINE NEGATIVE (NEGATIVE); SPECIFIC GRAVITIY, URINE 1.021 (1.003-1.030); UROBILINOGEN,URINE <=1.0 mg/dL (<=1.0)
[2022-03-16] MEDS: HALOPERIDOL 5 MG TABLET PO PRN (10:07)
[2022-03-16] MEDS: LORazepam 2 MG TABLET PO PRN ×2 (10:07→20:15)
[2022-03-16] MEDS: OMEGA-3/DHA/EPA/FISH OIL 1,000 MG CAPSULE PO SCH (10:21)
[2022-03-16 16:33] VITALS: BP 123/70
[2022-03-16 20:12] VITALS: BP 140/90
[2022-03-17 08:00] VITALS: BP 170/98
[2022-03-17] MEDS: HALOPERIDOL 5 MG TABLET PO PRN (12:02)
[2022-03-17] MEDS: LORazepam 2 MG TABLET PO PRN (12:02)
[2022-03-17] MEDS: OMEGA-3/DHA/EPA/FISH OIL 1,000 MG CAPSULE PO SCH (12:02)
[2022-03-17 16:35] VITALS: BP 145/97
[2022-03-17] MEDS: OLANZapine 7.5 MG TABLET PO SCH (21:09)
[2022-03-18 00:58] VITALS: BP 138/81
[2022-03-18] MEDS: LORazepam 2 MG TABLET PO PRN ×2 (00:58→20:55)
[2022-03-18 01:58] VITALS: BP 121/78
[2022-03-18 08:00] VITALS: BP 121/65
[2022-03-18 08:37] LABS: CHOL/HDL RATIO 4.3 (4.2-7.3)
[2022-03-18] MEDS: OMEGA-3/DHA/EPA/FISH OIL 1,000 MG CAPSULE PO SCH (08:39)
[2022-03-18 16:00] VITALS: BP 137/90
[2022-03-18] MEDS: OLANZapine 7.5 MG TABLET PO SCH (20:54)
[2022-03-18] MEDS: HALOPERIDOL 5 MG TABLET PO PRN (20:55)
[2022-03-19] MEDS: OMEGA-3/DHA/EPA/FISH OIL 1,000 MG CAPSULE PO SCH (08:36)
[2022-03-19] MEDS: HALOPERIDOL 5 MG TABLET PO PRN (08:59)
[2022-03-19] MEDS: LORazepam 2 MG TABLET PO PRN (08:59)
[2022-03-19 10:34] VITALS: BP 136/71
[2022-03-19 16:51] VITALS: BP 141/85
[2022-03-19] MEDS ORDERED: OLAN7.5T22 PO ×2 (17:31→20:54)
== END 2022-03-19 18:00 | disposition home or self-care (01) | DRG 750 ==
LOC: EMS 14:36 → 3EI 22:30
PROVIDERS: ADMIT Psychiatry & Neurology Psychiatry; ATTEND Psychiatry & Neurology Psychiatry
DX: F25.1 Schizoaffective disorder, depressive type (principal); R45.851 Suicidal ideations; I10 Essential (primary) hypertension; Z20.822 Contact with and (suspected) exposure to COVID-19; M19.90 Unspecified osteoarthritis, unspecified site; J44.9 Chronic obstructive pulmonary disease, unspecified; F17.210 Nicotine dependence, cigarettes, uncomplicated; Z96.649 Presence of unspecified artificial hip joint; Z88.6 Allergy status to analgesic agent
CPT/HCPCS: 80053; 80061; 81003; 84484; 85025; 93005; 99285; G0480

== ENCOUNTER 2022-03-24 07:32 | Inpatient (IN) | payer MEDICAID, OTHER ==
[~2022-03-24] VITALS: Ht 177.8 cm; Wt 105.2 kg
[~2022-03-24 07:32] MED LIST changes: -DULO-114 PO; -DULO20CA71 PO; -MELA5TAB40 PO; -NALT50TA PO; -OLAN10TA26 PO; -OLAN5TAB94 PO; +OLAN7.5T22 PO
[2022-03-24 09:59] LABS: BASOPHILS % (AUTO) 0.5 % (0.0-2.0); EOSINOPHILS % (AUTO) 0.9 % (1.0-6.0); HEMATOCRIT 44.5 % (41-53); LYMPHOCYTES # (AUTO) 1.9 K/uL (1.0-4.8); LYMPHOCYTES % (AUTO) 23.6 % (22.0-44.0); MEAN CORPUSCULAR HGB CONC 33.7 G/dL (31.0-37.0); MEAN CORPUSCULAR VOLUME 86 fL (80-100); MONOCYTES # (AUTO) 0.6 K/uL (0.1-1.0); MONOCYTES % (AUTO) 6.9 % (2.0-9.0); NEUTROPHILS # (AUTO) 5.5 K/uL (1.8-7.7); NEUTROPHILS % (AUTO) 68.1 % (40.0-70.0); PLATELET COUNT (AUTO) 196 K/uL (150-450); RED BLOOD CELL COUNT(AUTO) 5.16 MIL/uL (4.50-5.90); RED CELL DISTRIBUTION WIDTH 12.8 % (11.5-14.5)
[2022-03-24 10:10] LABS: AMPHET/METH SCREEN,URINE NEGATIVE (NEGATIVE); BARBITURATE SCREEN, URINE NEGATIVE (NEGATIVE); BENZODIAZEPINES SCREEN,URINE NEGATIVE (NEGATIVE); CANNABINOID SCREEN,URINE NEGATIVE (NEGATIVE); COCAINE SCREEN,URINE NEGATIVE (NEGATIVE); METHADONE SCREEN, URINE NEGATIVE (NEGATIVE); OPIATE SCREEN,URINE NEGATIVE (NEGATIVE)
[2022-03-24 10:11] LABS: PHENCYCLIDINE SCREEN,URINE NEGATIVE (NEGATIVE)
[2022-03-24 10:14] LABS: ANION GAP 4 mmol/L (8-16); CARBON DIOXIDE 30 mmol/L (22-29); CHLORIDE 101 mmol/L (98-107); CREATININE 0.95 mg/dL (0.60-1.30); GLOMERULAR FILTR. RATE CALC > 60 mL/min (>60); GLUCOSE,RANDOM 102 mg/dL (70-110); POTASSIUM 3.8 mmol/L (3.5-5.1); SODIUM SERUM 135 mmol/L (136-145); UREA NITROGEN, BLOOD 11 mg/dL (7-18)
[2022-03-24 10:22] LABS: ALANINE AMINOTRANSFERASE 18 U/L (12-78); ALBUMIN 3.7 g/dL (3.4-5.0); ALKALINE PHOSPHATASE 88 U/L (46-116); ASPARTATE AMINOTRANSFERASE 15 U/L (15-37); BILIRUBIN,TOTAL 0.8 mg/dL (0.1-1.0)
[2022-03-24] MEDS ORDERED: LORazepam 1 MG TABLET PO ONE (11:45)
[2022-03-24] MEDS ORDERED: HALOPERIDOL 5 MG TABLET PO PRN (16:30)
[2022-03-24 17:01] LABS: COVID AG,FIA SOURCE NASOPHARYNGEAL
[2022-03-24] MEDS: LORazepam 2 MG TABLET PO PRN ×2 (18:08→20:02)
[2022-03-24] MEDS: ZOLPIDEM TARTRATE 10 MG TABLET PO PRN (20:02)
[2022-03-25 08:30] VITALS: BP 134/63
[2022-03-25] MEDS: LORazepam 2 MG TABLET PO PRN (11:01)
[2022-03-25 20:03] VITALS: BP 131/72
[2022-03-25] MEDS: ZOLPIDEM TARTRATE 10 MG TABLET PO PRN (20:28)
[2022-03-26 10:47] VITALS: BP 130/80
[2022-03-26] MEDS: LORazepam 2 MG TABLET PO PRN (12:06)
[2022-03-26] MEDS: ZOLPIDEM TARTRATE 10 MG TABLET PO PRN (19:49)
[2022-03-26 20:00] VITALS: BP 128/85
[2022-03-27 08:05] VITALS: BP 141/89
[2022-03-27] MEDS: LORazepam 2 MG TABLET PO PRN ×2 (09:22→17:25)
[2022-03-27] MEDS: ZOLPIDEM TARTRATE 10 MG TABLET PO PRN (20:01)
[2022-03-27 20:17] VITALS: BP 140/85
[2022-03-28 08:16] VITALS: BP 148/86
[2022-03-28] MEDS: LORazepam 2 MG TABLET PO PRN ×2 (12:22→17:33)
[2022-03-28] MEDS: OLANZapine 7.5 MG TABLET PO SCH (20:02)
[2022-03-28 20:03] VITALS: BP 147/80
[2022-03-29 09:24] VITALS: BP 134/84
[2022-03-29] MEDS: LORazepam 2 MG TABLET PO PRN (17:35)
[2022-03-29] MEDS: OLANZapine 7.5 MG TABLET PO SCH (20:05)
[2022-03-29 20:06] VITALS: BP 135/90
[2022-03-30 09:00] VITALS: BP 136/85
[2022-03-30 10:26] LABS: GLUCOMETER DEV NAME(LOC) POC.BV
[2022-03-30] MEDS: LORazepam 2 MG TABLET PO PRN ×2 (12:17→17:51)
[2022-03-30] MEDS: OLANZapine 7.5 MG TABLET PO SCH (20:08)
[2022-03-30 20:13] VITALS: BP 143/87
[2022-03-30] MEDS: ZOLPIDEM TARTRATE 10 MG TABLET PO PRN (23:18)
[2022-03-31 08:11] VITALS: BP 140/80
== END 2022-03-31 13:06 | disposition home or self-care (01) | DRG 750 ==
LOC: EMS 07:55 → B2S 03-25 00:45
PROVIDERS: ADMIT Psychiatry & Neurology Psychiatry; ATTEND Psychiatry & Neurology Psychiatry
DX: F25.9 Schizoaffective disorder, unspecified (principal); R45.851 Suicidal ideations; F31.9 Bipolar disorder, unspecified; F43.10 Post-traumatic stress disorder, unspecified; I10 Essential (primary) hypertension; J44.9 Chronic obstructive pulmonary disease, unspecified; Z96.649 Presence of unspecified artificial hip joint; E66.9 Obesity, unspecified; Z20.822 Contact with and (suspected) exposure to COVID-19; K21.9 Gastro-esophageal reflux disease without esophagitis; G89.29 Other chronic pain; M25.552 Pain in left hip; M25.551 Pain in right hip; G47.00 Insomnia, unspecified; K59.00 Constipation, unspecified; M19.90 Unspecified osteoarthritis, unspecified site; F12.90 Cannabis use, unspecified, uncomplicated; Z87.891 Personal history of nicotine dependence; Z68.33 Body mass index [BMI] 33.0-33.9, adult; Z88.5 Allergy status to narcotic agent; Z71.51 Drug abuse counseling and surveillance of drug abuser
CPT/HCPCS: 80053; 85025; 99285; G0480

== ENCOUNTER 2022-04-18 13:37 | Inpatient (IN) | payer MEDICAID, OTHER ==
[~2022-04-18] VITALS: Ht 177.8 cm; Wt 103.9 kg
[2022-04-18 14:57] LABS: ANION GAP 14 mmol/L (8-16); CALCIUM, TOTAL 9.5 mg/dL (8.8-10.5); CARBON DIOXIDE 22 mmol/L (22-29); CHLORIDE 102 mmol/L (98-107); GLUCOSE,RANDOM 76 mg/dL (70-110); POTASSIUM 3.4 mmol/L (3.5-5.1); SODIUM SERUM 138 mmol/L (136-145); UREA NITROGEN, BLOOD 8 mg/dL (7-18)
[2022-04-18 14:58] LABS: GLOMERULAR FILTR. RATE CALC > 60 mL/min (>60)
[2022-04-18 15:03] LABS: ALANINE AMINOTRANSFERASE 18 U/L (12-78); ALBUMIN 3.6 g/dL (3.4-5.0); ALKALINE PHOSPHATASE 82 U/L (46-116); ASPARTATE AMINOTRANSFERASE 13 U/L (15-37); BILIRUBIN,TOTAL 0.7 mg/dL (0.1-1.0); TOTAL PROTEIN, SERUM 6.8 g/dL (6.4-8.2)
[2022-04-18 15:09] LABS: BASOPHILS % (AUTO) 0.5 % (0.0-2.0); EOSINOPHILS % (AUTO) 0.6 % (1.0-6.0); HEMATOCRIT 44.5 % (41-53); HEMOGLOBIN 15.3 g/dL (13.5-17.5); LYMPHOCYTES # (AUTO) 2.4 K/uL (1.0-4.8); LYMPHOCYTES % (AUTO) 21.3 % (22.0-44.0); MEAN CORPUSCULAR HEMOGLOBIN 29.4 pg (26.0-34.0); MEAN CORPUSCULAR HGB CONC 34.3 G/dL (31.0-37.0); MEAN CORPUSCULAR VOLUME 86 fL (80-100); MONOCYTES # (AUTO) 0.8 K/uL (0.1-1.0); MONOCYTES % (AUTO) 7.3 % (2.0-9.0); NEUTROPHILS # (AUTO) 8.1 K/uL (1.8-7.7); NEUTROPHILS % (AUTO) 70.3 % (40.0-70.0); PLATELET COUNT (AUTO) 238 K/uL (150-450)
[2022-04-18 16:05] LABS: COVID AG,FIA SOURCE NASOPHARYNGEAL
[2022-04-18 18:00] VITALS: BP 169/94
[2022-04-18] MEDS: ZOLPIDEM TARTRATE 10 MG TABLET PO PRN (21:03)
[2022-04-19] MEDS ORDERED: DOCUSATE SODIUM 100 MG CAPSULE PO PRN (05:00)
[2022-04-19] MEDS ORDERED: CloNIDine HCL 0.1 MG TABLET PO PRN (05:00)
[2022-04-19] MEDS ORDERED: ACETAMINOPHEN 325 MG TABLET PO PRN (05:00)
[2022-04-19] MEDS ORDERED: OMEPRAZOLE 20 MG CAPSULE PO PRN (05:00)
[2022-04-19] MEDS ORDERED: MAG HYDROX/AL HYDROX/SIMETH ES 30 ML SUSPENSION UDCUP PO PRN (05:00)
[2022-04-19] MEDS ORDERED: MAGNESIUM HYDROXIDE SUSPENSION 30 ML UDCUP PO PRN (05:00)
[2022-04-19] MEDS ORDERED: BENZOCAINE/MENTHOL LOZENGE PO PRN (05:00)
[2022-04-19] MEDS ORDERED: IBUPROFEN 600 MG TABLET PO PRN (05:00)
[2022-04-19] MEDS ORDERED: PETROLATUM,WHITE 28 GM JELLY TP PRN (05:00)
[2022-04-19] MEDS ORDERED: ALBUTEROL SULFATE HFA 90 MCG/PUFF 8 GM INHALER IH PRN (05:00)
[2022-04-19] MEDS ORDERED: LOPERAMIDE HCL 2 MG CAPSULE PO PRN (05:00)
[2022-04-19] MEDS ORDERED: ONDANSETRON HCL 4 MG TABLET PO PRN (05:00)
[2022-04-19 06:50] VITALS: BP 151/82
[2022-04-19] MEDS: LORazepam 2 MG TABLET PO PRN (08:01)
[2022-04-19 09:59] VITALS: BP 136/88
[2022-04-19 20:12] VITALS: BP 138/86
[2022-04-19] MEDS: OLANZapine 7.5 MG TABLET PO SCH (20:46)
[2022-04-19] MEDS: ZOLPIDEM TARTRATE 10 MG TABLET PO PRN (21:11)
[2022-04-20] MEDS: LORazepam 2 MG TABLET PO PRN (08:14)
[2022-04-20] MEDS: CITALOPRAM HYDROBROMIDE 20 MG TABLET PO SCH (08:14)
[2022-04-20 08:30] VITALS: BP 147/90
[2022-04-20 16:17] VITALS: BP 95/59
[2022-04-20] MEDS: OLANZapine 7.5 MG TABLET PO SCH (20:15)
[2022-04-21 08:00] VITALS: BP 167/88
[2022-04-21] MEDS: CITALOPRAM HYDROBROMIDE 20 MG TABLET PO SCH (08:46)
[2022-04-21 10:57] LABS: BASOPHILS % (AUTO) 0.8 % (0.0-2.0); EOSINOPHILS % (AUTO) 1.9 % (1.0-6.0); HEMATOCRIT 47.8 % (41-53); HEMOGLOBIN 16.4 g/dL (13.5-17.5); LYMPHOCYTES # (AUTO) 2.3 K/uL (1.0-4.8); MEAN CORPUSCULAR HEMOGLOBIN 29.7 pg (26.0-34.0); MEAN CORPUSCULAR HGB CONC 34.3 G/dL (31.0-37.0); MEAN CORPUSCULAR VOLUME 87 fL (80-100); MONOCYTES # (AUTO) 0.7 K/uL (0.1-1.0); MONOCYTES % (AUTO) 8.5 % (2.0-9.0); NEUTROPHILS # (AUTO) 5.6 K/uL (1.8-7.7); NEUTROPHILS % (AUTO) 62.8 % (40.0-70.0); PLATELET COUNT (AUTO) 232 K/uL (150-450); RED BLOOD CELL COUNT(AUTO) 5.53 MIL/uL (4.50-5.90)
[2022-04-21 11:16] LABS: ALANINE AMINOTRANSFERASE 16 U/L (12-78); ALBUMIN 3.5 g/dL (3.4-5.0); ALKALINE PHOSPHATASE 84 U/L (46-116); ANION GAP 4 mmol/L (8-16); ASPARTATE AMINOTRANSFERASE 10 U/L (15-37); BILIRUBIN,TOTAL 0.3 mg/dL (0.1-1.0); CALCIUM, TOTAL 9.5 mg/dL (8.8-10.5); CARBON DIOXIDE 32 mmol/L (22-29); CHLORIDE 100 mmol/L (98-107); CREATININE 1.13 mg/dL (0.60-1.30); GLUCOSE,RANDOM 100 mg/dL (70-110); POTASSIUM 4.5 mmol/L (3.5-5.1); SODIUM SERUM 136 mmol/L (136-145); TOTAL PROTEIN, SERUM 6.9 g/dL (6.4-8.2); UREA NITROGEN, BLOOD 14 mg/dL (7-18)
[2022-04-21 11:24] LABS: GLOMERULAR FILTR. RATE CALC > 60 mL/min (>60)
[2022-04-21 16:26] VITALS: BP 167/94
[2022-04-21] MEDS: OLANZapine 7.5 MG TABLET PO SCH (20:48)
[2022-04-21] MEDS: ZOLPIDEM TARTRATE 10 MG TABLET PO PRN (21:15)
[2022-04-22 08:00] VITALS: BP 169/93
[2022-04-22] MEDS: CITALOPRAM HYDROBROMIDE 20 MG TABLET PO SCH (09:31)
[2022-04-22] MEDS: LORazepam 2 MG TABLET PO PRN (14:40)
[2022-04-22 16:07] VITALS: BP 137/80
[2022-04-22] MEDS: ZOLPIDEM TARTRATE 10 MG TABLET PO PRN (20:25)
[2022-04-22] MEDS: OLANZapine 7.5 MG TABLET PO SCH (20:26)
[2022-04-23 08:39] VITALS: BP 134/69
[2022-04-23] MEDS: CITALOPRAM HYDROBROMIDE 20 MG TABLET PO SCH (08:59)
[2022-04-23 16:08] VITALS: BP 140/74
[2022-04-23] MEDS: LORazepam 2 MG TABLET PO PRN (18:05)
[2022-04-23] MEDS: ZOLPIDEM TARTRATE 10 MG TABLET PO PRN (20:45)
[2022-04-23] MEDS: OLANZapine 7.5 MG TABLET PO SCH (20:45)
[2022-04-24 07:48] LABS: COVID AG,FIA SOURCE NASAL SWAB
[2022-04-24 08:15] VITALS: BP 135/98
[2022-04-24] MEDS: CITALOPRAM HYDROBROMIDE 20 MG TABLET PO SCH (08:20)
[2022-04-24] MEDS: LORazepam 2 MG TABLET PO PRN (14:01)
[2022-04-24] MEDS: ZOLPIDEM TARTRATE 10 MG TABLET PO PRN (20:43)
[2022-04-24] MEDS: OLANZapine 7.5 MG TABLET PO SCH (20:43)
[2022-04-25] MEDS: CITALOPRAM HYDROBROMIDE 20 MG TABLET PO SCH (08:51)
[2022-04-25 09:00] VITALS: BP 165/92
[2022-04-25] MEDS: LORazepam 2 MG TABLET PO PRN (13:07)
[2022-04-25] MEDS: HALOPERIDOL 5 MG TABLET PO PRN (13:07)
[2022-04-25 16:11] VITALS: BP 121/63
[2022-04-25] MEDS: OLANZapine 7.5 MG TABLET PO SCH (20:45)
[2022-04-25] MEDS: ZOLPIDEM TARTRATE 10 MG TABLET PO PRN (20:45)
[2022-04-26 08:00] VITALS: BP 135/67
[2022-04-26] MEDS: CITALOPRAM HYDROBROMIDE 20 MG TABLET PO SCH (08:41)
[2022-04-26 16:00] VITALS: BP 135/91
[2022-04-26] MEDS: ZOLPIDEM TARTRATE 10 MG TABLET PO PRN (20:50)
[2022-04-26] MEDS: OLANZapine 7.5 MG TABLET PO SCH (20:50)
[2022-04-27 09:33] VITALS: BP 142/85
[2022-04-27] MEDS: CITALOPRAM HYDROBROMIDE 20 MG TABLET PO SCH (09:39)
[2022-04-27] MEDS: HALOPERIDOL 5 MG TABLET PO PRN (14:40)
[2022-04-27] MEDS: LORazepam 2 MG TABLET PO PRN (14:40)
[2022-04-27 16:06] VITALS: BP 165/98
[2022-04-27] MEDS: OLANZapine 7.5 MG TABLET PO SCH (20:42)
[2022-04-27] MEDS: ZOLPIDEM TARTRATE 10 MG TABLET PO PRN (20:43)
[2022-04-28] MEDS: CITALOPRAM HYDROBROMIDE 20 MG TABLET PO SCH (08:14)
[2022-04-28 08:27] VITALS: BP 164/100
[2022-04-28] MEDS: LORazepam 2 MG TABLET PO PRN (11:57)
[2022-04-28] MEDS: HALOPERIDOL 5 MG TABLET PO PRN (11:57)
[2022-04-28] MEDS: OLANZapine 7.5 MG TABLET PO SCH (20:50)
[2022-04-28] MEDS: ZOLPIDEM TARTRATE 10 MG TABLET PO PRN (21:13)
[2022-04-29 08:00] VITALS: BP 98/54
[2022-04-29] MEDS: CITALOPRAM HYDROBROMIDE 20 MG TABLET PO SCH (08:31)
[2022-04-29] MEDS: LORazepam 2 MG TABLET PO PRN (12:02)
[2022-04-29 16:53] VITALS: BP 167/100
[2022-04-29] MEDS: OLANZapine 7.5 MG TABLET PO SCH (20:37)
[2022-04-29] MEDS: ZOLPIDEM TARTRATE 10 MG TABLET PO PRN (21:36)
[2022-04-30 08:00] VITALS: BP 159/100
[2022-04-30] MEDS: CITALOPRAM HYDROBROMIDE 20 MG TABLET PO SCH (09:43)
[2022-04-30 16:00] VITALS: BP 159/94
[2022-04-30 17:02] VITALS: BP 161/87
[2022-04-30] MEDS: LORazepam 2 MG TABLET PO PRN (17:02)
[2022-04-30] MEDS: OLANZapine 7.5 MG TABLET PO SCH (20:40)
[2022-04-30] MEDS: ZOLPIDEM TARTRATE 10 MG TABLET PO PRN (21:03)
[2022-04-30] MEDS ORDERED: OLAN7.5T22 PO (23:32)
[2022-04-30] MEDS ORDERED: CITA-144 PO (23:32)
[2022-05-01 07:24] LABS: COVID AG,FIA SOURCE NASAL SWAB
[2022-05-01] MEDS: CITALOPRAM HYDROBROMIDE 20 MG TABLET PO SCH (08:53)
[2022-05-01 09:42] VITALS: BP 136/79
== END 2022-05-01 15:05 | disposition home or self-care (01) | DRG 750 ==
LOC: EMS 13:45 → 3EI 16:30
PROVIDERS: ADMIT Psychiatry & Neurology Psychiatry; ATTEND Psychiatry & Neurology Psychiatry
DX: F25.9 Schizoaffective disorder, unspecified (principal); R45.851 Suicidal ideations; I10 Essential (primary) hypertension; Z20.822 Contact with and (suspected) exposure to COVID-19; J44.9 Chronic obstructive pulmonary disease, unspecified; F17.210 Nicotine dependence, cigarettes, uncomplicated; Z96.649 Presence of unspecified artificial hip joint; K21.9 Gastro-esophageal reflux disease without esophagitis; G89.29 Other chronic pain; G47.00 Insomnia, unspecified; K59.00 Constipation, unspecified; F41.9 Anxiety disorder, unspecified; F12.90 Cannabis use, unspecified, uncomplicated; F19.10 Other psychoactive substance abuse, uncomplicated; Z88.6 Allergy status to analgesic agent
CPT/HCPCS: 80053; 85025; 87081; 93005; 99285; G0480

== ENCOUNTER 2022-05-05 06:28 | Inpatient (IN) | payer MEDICAID, OTHER ==
[~2022-05-05] VITALS: Ht 177.8 cm; Wt 104.8 kg
[~2022-05-05 06:28] MED LIST changes: +CITA-144 PO; -OMEG-135 PO
[2022-05-05 07:53] LABS: BASOPHILS % (AUTO) 0.5 % (0.0-2.0); EOSINOPHILS % (AUTO) 0.6 % (1.0-6.0); HEMATOCRIT 44.2 % (41-53); HEMOGLOBIN 15.2 g/dL (13.5-17.5); LYMPHOCYTES # (AUTO) 1.7 K/uL (1.0-4.8); MEAN CORPUSCULAR HEMOGLOBIN 29.4 pg (26.0-34.0); MEAN CORPUSCULAR HGB CONC 34.5 G/dL (31.0-37.0); MEAN CORPUSCULAR VOLUME 85 fL (80-100); MONOCYTES # (AUTO) 0.7 K/uL (0.1-1.0); MONOCYTES % (AUTO) 7.6 % (2.0-9.0); NEUTROPHILS # (AUTO) 6.7 K/uL (1.8-7.7); NEUTROPHILS % (AUTO) 73.3 % (40.0-70.0); PLATELET COUNT (AUTO) 199 K/uL (150-450); RED BLOOD CELL COUNT(AUTO) 5.18 MIL/uL (4.50-5.90); RED CELL DISTRIBUTION WIDTH 12.8 % (11.5-14.5)
[2022-05-05 08:05] LABS: AMPHET/METH SCREEN,URINE NEGATIVE (NEGATIVE); BARBITURATE SCREEN, URINE NEGATIVE (NEGATIVE); BENZODIAZEPINES SCREEN,URINE NEGATIVE (NEGATIVE); CANNABINOID SCREEN,URINE POSITIVE (NEGATIVE); COCAINE SCREEN,URINE NEGATIVE (NEGATIVE); METHADONE SCREEN, URINE NEGATIVE (NEGATIVE); OPIATE SCREEN,URINE NEGATIVE (NEGATIVE); PHENCYCLIDINE SCREEN,URINE NEGATIVE (NEGATIVE)
[2022-05-05 08:07] LABS: ANION GAP 5 mmol/L (8-16); CALCIUM, TOTAL 9.2 mg/dL (8.8-10.5); CARBON DIOXIDE 28 mmol/L (22-29); CHLORIDE 101 mmol/L (98-107); CREATININE 1.19 mg/dL (0.60-1.30); GLOMERULAR FILTR. RATE CALC > 60 mL/min (>60); GLUCOSE,RANDOM 136 mg/dL (70-110); SODIUM SERUM 134 mmol/L (136-145); UREA NITROGEN, BLOOD 11 mg/dL (7-18)
[2022-05-05 08:14] LABS: ALANINE AMINOTRANSFERASE 24 U/L (12-78); ALBUMIN 3.5 g/dL (3.4-5.0); ALKALINE PHOSPHATASE 89 U/L (46-116); ASPARTATE AMINOTRANSFERASE 19 U/L (15-37); BILIRUBIN,TOTAL 0.8 mg/dL (0.1-1.0); TOTAL PROTEIN, SERUM 6.9 g/dL (6.4-8.2)
[2022-05-05 09:40] LABS: COVID AG,FIA SOURCE NASOPHARYNGEAL
[2022-05-05 10:25] VITALS: BP 142/91
[2022-05-05] MEDS: LORazepam 2 MG TABLET PO PRN ×2 (14:46→20:41)
[2022-05-05] MEDS ORDERED: BACITRACIN 28 GM OINTMENT TP PRN (18:30)
[2022-05-05] MEDS ORDERED: BENZOCAINE/MENTHOL LOZENGE PO PRN (18:30)
[2022-05-05] MEDS ORDERED: CloNIDine HCL 0.1 MG TABLET PO PRN (18:30)
[2022-05-05] MEDS ORDERED: PETROLATUM,WHITE 28 GM JELLY TP PRN (18:30)
[2022-05-05] MEDS ORDERED: OMEPRAZOLE 20 MG CAPSULE PO PRN (18:30)
[2022-05-05] MEDS ORDERED: MAGNESIUM HYDROXIDE SUSPENSION 30 ML UDCUP PO PRN (18:30)
[2022-05-05] MEDS ORDERED: IBUPROFEN 600 MG TABLET PO PRN (18:30)
[2022-05-05] MEDS ORDERED: LOPERAMIDE HCL 2 MG CAPSULE PO PRN (18:30)
[2022-05-05] MEDS ORDERED: ACETAMINOPHEN 325 MG TABLET PO PRN (18:30)
[2022-05-05] MEDS ORDERED: ONDANSETRON HCL 4 MG TABLET PO PRN (18:30)
[2022-05-05] MEDS ORDERED: MAG HYDROX/AL HYDROX/SIMETH ES 30 ML SUSPENSION UDCUP PO PRN (18:30)
[2022-05-05] MEDS ORDERED: ALBUTEROL SULFATE HFA 90 MCG/PUFF 8 GM INHALER IH PRN (18:30)
[2022-05-05] MEDS ORDERED: DOCUSATE SODIUM 100 MG CAPSULE PO PRN (18:30)
[2022-05-05] MEDS: HALOPERIDOL 5 MG TABLET PO PRN (20:41)
[2022-05-05] MEDS: ZOLPIDEM TARTRATE 10 MG TABLET PO PRN (22:39)
[2022-05-06 08:52] VITALS: BP 161/89
[2022-05-06] MEDS: LITHIUM CARBONATE 300 MG CAPSULE PO SCH ×2 (10:27→20:58)
[2022-05-06] MEDS: DIVALPROEX SODIUM 500 MG DR TABLET PO SCH ×2 (10:28→17:16)
[2022-05-06] MEDS: CITALOPRAM HYDROBROMIDE 20 MG TABLET PO SCH (10:28)
[2022-05-06] MEDS: HALOPERIDOL 5 MG TABLET PO PRN (15:48)
[2022-05-06] MEDS: LORazepam 2 MG TABLET PO PRN (15:48)
[2022-05-06 16:10] VITALS: BP 163/90
[2022-05-06] MEDS: ZOLPIDEM TARTRATE 10 MG TABLET PO PRN (20:58)
[2022-05-06] MEDS: OLANZapine 7.5 MG TABLET PO SCH (20:58)
[2022-05-07] MEDS: LITHIUM CARBONATE 300 MG CAPSULE PO SCH ×2 (09:15→20:55)
[2022-05-07] MEDS: DIVALPROEX SODIUM 500 MG DR TABLET PO SCH ×2 (09:15→16:02)
[2022-05-07] MEDS: CITALOPRAM HYDROBROMIDE 20 MG TABLET PO SCH (09:15)
[2022-05-07 10:25] VITALS: BP 129/71
[2022-05-07] MEDS: LORazepam 2 MG TABLET PO PRN (14:56)
[2022-05-07 17:12] VITALS: BP 125/74
[2022-05-07] MEDS: OLANZapine 7.5 MG TABLET PO SCH (20:55)
[2022-05-07] MEDS: ZOLPIDEM TARTRATE 10 MG TABLET PO PRN (20:55)
[2022-05-08] VITALS: BP 122/68
[2022-05-08 08:30] VITALS: BP 116/62
[2022-05-08] MEDS: DIVALPROEX SODIUM 500 MG DR TABLET PO SCH ×2 (09:46→16:38)
[2022-05-08] MEDS: CITALOPRAM HYDROBROMIDE 20 MG TABLET PO SCH (09:46)
[2022-05-08] MEDS: LITHIUM CARBONATE 300 MG CAPSULE PO SCH ×2 (09:46→20:23)
[2022-05-08 16:16] VITALS: BP 130/82
[2022-05-08] MEDS: ZOLPIDEM TARTRATE 10 MG TABLET PO PRN (20:23)
[2022-05-08] MEDS: OLANZapine 7.5 MG TABLET PO SCH (20:24)
[2022-05-09] MEDS: LITHIUM CARBONATE 300 MG CAPSULE PO SCH ×2 (08:28→21:18)
[2022-05-09] MEDS: DIVALPROEX SODIUM 500 MG DR TABLET PO SCH ×2 (08:28→16:26)
[2022-05-09] MEDS: CITALOPRAM HYDROBROMIDE 20 MG TABLET PO SCH (08:28)
[2022-05-09 09:00] VITALS: BP 160/100
[2022-05-09 16:00] VITALS: BP 138/80
[2022-05-09] MEDS: OLANZapine 7.5 MG TABLET PO SCH (21:18)
[2022-05-09] MEDS: ZOLPIDEM TARTRATE 10 MG TABLET PO PRN (21:18)
[2022-05-10 07:42] LABS: LITHIUM 0.38 mmol/L (0.60-1.20)
[2022-05-10 08:29] VITALS: BP 153/79
[2022-05-10] MEDS: DIVALPROEX SODIUM 500 MG DR TABLET PO SCH ×2 (08:35→16:32)
[2022-05-10] MEDS: CITALOPRAM HYDROBROMIDE 20 MG TABLET PO SCH (08:36)
[2022-05-10] MEDS: LITHIUM CARBONATE 300 MG CAPSULE PO SCH ×2 (08:36→20:43)
[2022-05-10] MEDS: LORazepam 2 MG TABLET PO PRN (12:24)
[2022-05-10 16:16] VITALS: BP 148/80
[2022-05-10] MEDS: ZOLPIDEM TARTRATE 10 MG TABLET PO PRN (20:43)
[2022-05-10] MEDS: OLANZapine 7.5 MG TABLET PO SCH (20:44)
[2022-05-11 07:10] LABS: COVID AG,FIA SOURCE NASAL SWAB
[2022-05-11] MEDS: CITALOPRAM HYDROBROMIDE 20 MG TABLET PO SCH (09:09)
[2022-05-11] MEDS: DIVALPROEX SODIUM 500 MG DR TABLET PO SCH ×2 (09:09→16:39)
[2022-05-11] MEDS: LITHIUM CARBONATE 300 MG CAPSULE PO SCH ×2 (09:09→21:11)
[2022-05-11 09:18] VITALS: BP 135/69
[2022-05-11 12:24] VITALS: BP 138/70
[2022-05-11] MEDS: LORazepam 2 MG TABLET PO PRN (12:24)
[2022-05-11] MEDS: OLANZapine 7.5 MG TABLET PO SCH (21:12)
[2022-05-11] MEDS: ZOLPIDEM TARTRATE 10 MG TABLET PO PRN (21:12)
[2022-05-12] MEDS: CITALOPRAM HYDROBROMIDE 20 MG TABLET PO SCH (10:05)
[2022-05-12] MEDS: LITHIUM CARBONATE 300 MG CAPSULE PO SCH ×2 (10:05→20:41)
[2022-05-12] MEDS: DIVALPROEX SODIUM 500 MG DR TABLET PO SCH ×2 (10:05→16:38)
[2022-05-12] MEDS: LORazepam 2 MG TABLET PO PRN (12:14)
[2022-05-12 16:00] VITALS: BP 133/6
[2022-05-12] MEDS: OLANZapine 7.5 MG TABLET PO SCH (20:41)
[2022-05-12] MEDS: ZOLPIDEM TARTRATE 10 MG TABLET PO PRN (21:50)
[2022-05-13 08:00] VITALS: BP 147/68
[2022-05-13] MEDS: CITALOPRAM HYDROBROMIDE 20 MG TABLET PO SCH (10:03)
[2022-05-13] MEDS: LITHIUM CARBONATE 300 MG CAPSULE PO SCH (10:03)
[2022-05-13] MEDS: DIVALPROEX SODIUM 500 MG DR TABLET PO SCH (10:03)
[2022-05-13] MEDS ORDERED: LITH300C3 PO (12:01)
[2022-05-13] MEDS ORDERED: DIVA-112 PO (12:01)
[2022-05-13] MEDS ORDERED: OLAN7.5T22 PO (12:01)
== END 2022-05-13 15:15 | disposition home or self-care (01) | DRG 750 ==
LOC: EMS 06:29 → 3EI 09:24
PROVIDERS: ADMIT Psychiatry & Neurology Psychiatry; ATTEND Psychiatry & Neurology Psychiatry
DX: F25.9 Schizoaffective disorder, unspecified (principal); R45.851 Suicidal ideations; F17.200 Nicotine dependence, unspecified, uncomplicated; I10 Essential (primary) hypertension; J44.9 Chronic obstructive pulmonary disease, unspecified; F31.9 Bipolar disorder, unspecified; Z96.649 Presence of unspecified artificial hip joint; Z20.822 Contact with and (suspected) exposure to COVID-19; Z79.899 Other long term (current) drug therapy
CPT/HCPCS: 71045; 80053; 80164; 80178; 84484; 85025; 87081; 93005; 99285; G0480; 36415-L1; 36415-TC; U0003

== ENCOUNTER 2022-05-15 06:10 | Inpatient (IN) | payer MEDICAID, OTHER ==
[~2022-05-15] VITALS: Ht 175.3 cm; Wt 106.8 kg
[~2022-05-15 06:10] MED LIST changes: -CITA-144 PO; +DIVA-112 PO; +LITH300C3 PO
[2022-05-15 06:58] LABS: BASOPHILS % (AUTO) 0.3 % (0.0-2.0); EOSINOPHILS % (AUTO) 1.4 % (1.0-6.0); HEMATOCRIT 45.7 % (41-53); HEMOGLOBIN 15.7 g/dL (13.5-17.5); LYMPHOCYTES # (AUTO) 2.4 K/uL (1.0-4.8); LYMPHOCYTES % (AUTO) 21.1 % (22.0-44.0); MEAN CORPUSCULAR HEMOGLOBIN 29.4 pg (26.0-34.0); MEAN CORPUSCULAR HGB CONC 34.3 G/dL (31.0-37.0); MEAN CORPUSCULAR VOLUME 86 fL (80-100); MONOCYTES # (AUTO) 0.7 K/uL (0.1-1.0); MONOCYTES % (AUTO) 6.4 % (2.0-9.0); NEUTROPHILS # (AUTO) 8.1 K/uL (1.8-7.7); NEUTROPHILS % (AUTO) 70.8 % (40.0-70.0); PLATELET COUNT (AUTO) 207 K/uL (150-450); RED BLOOD CELL COUNT(AUTO) 5.34 MIL/uL (4.50-5.90); RED CELL DISTRIBUTION WIDTH 12.9 % (11.5-14.5)
[2022-05-15 07:09] LABS: ANION GAP 8 mmol/L (8-16); CALCIUM, TOTAL 9.4 mg/dL (8.8-10.5); CARBON DIOXIDE 29 mmol/L (22-29); CHLORIDE 99 mmol/L (98-107); CREATININE 1.33 mg/dL (0.60-1.30); GLUCOSE,RANDOM 156 mg/dL (70-110); POTASSIUM 3.9 mmol/L (3.5-5.1); SODIUM SERUM 136 mmol/L (136-145); UREA NITROGEN, BLOOD 12 mg/dL (7-18)
[2022-05-15 07:12] LABS: GLOMERULAR FILTR. RATE CALC 55 mL/min (>60)
[2022-05-15 07:15] LABS: ALANINE AMINOTRANSFERASE 19 U/L (12-78); ALBUMIN 3.4 g/dL (3.4-5.0); ALKALINE PHOSPHATASE 95 U/L (46-116); ASPARTATE AMINOTRANSFERASE 12 U/L (15-37); BILIRUBIN,TOTAL 0.7 mg/dL (0.1-1.0); TOTAL PROTEIN, SERUM 7.1 g/dL (6.4-8.2)
[2022-05-15 07:43] LABS: COVID AG,FIA SOURCE NASOPHARYNGEAL
[2022-05-15 10:02] LABS: AMPHET/METH SCREEN,URINE NEGATIVE (NEGATIVE); BARBITURATE SCREEN, URINE NEGATIVE (NEGATIVE); BENZODIAZEPINES SCREEN,URINE NEGATIVE (NEGATIVE); CANNABINOID SCREEN,URINE POSITIVE (NEGATIVE); COCAINE SCREEN,URINE NEGATIVE (NEGATIVE); METHADONE SCREEN, URINE NEGATIVE (NEGATIVE); OPIATE SCREEN,URINE NEGATIVE (NEGATIVE)
[2022-05-15 10:15] LABS: PHENCYCLIDINE SCREEN,URINE NEGATIVE (NEGATIVE)
[2022-05-15] MEDS ORDERED: LORazepam 1 MG TABLET PO ONE (11:45)
[2022-05-15 16:26] VITALS: BP 153/93
[2022-05-15 17:20] LABS: APPEARANCE,URINE CLEAR (CLEAR); BILIRUBIN,URINE NEGATIVE (NEGATIVE); GLUCOSE, URINE (UA) NEGATIVE (NEGATIVE); KETONES,URINE NEGATIVE (NEGATIVE); LEUKOCYTE ESTERASE ,URINE SMALL (NEGATIVE); NITRATE,URINE NEGATIVE (NEGATIVE); OCCULT BLOOD,URINE NEGATIVE (NEGATIVE); PH,URINE 6.5 (5.0-8.0); PROTEIN,URINE NEGATIVE (NEGATIVE); SPECIFIC GRAVITIY, URINE 1.019 (1.003-1.030); UROBILINOGEN,URINE <=1.0 mg/dL (<=1.0)
[2022-05-15 17:29] LABS: BACTERIA,URINE None Seen /HPF (None Seen); RBC,URINE None Seen /HPF (0-2); SQUAMOUS EPITHELIAL CELL,UR Few /LPF (None Seen)
[2022-05-15] MEDS: LORazepam 2 MG TABLET PO PRN (21:01)
[2022-05-15] MEDS: ZOLPIDEM TARTRATE 10 MG TABLET PO PRN (21:01)
[2022-05-16] MEDS: HALOPERIDOL 5 MG TABLET PO PRN ×2 (00:23→13:02)
[2022-05-16] MEDS ORDERED: ONDANSETRON HCL 4 MG TABLET PO PRN (05:30)
[2022-05-16] MEDS ORDERED: IBUPROFEN 600 MG TABLET PO PRN (05:30)
[2022-05-16] MEDS ORDERED: ACETAMINOPHEN 325 MG TABLET PO PRN (05:30)
[2022-05-16] MEDS ORDERED: MAGNESIUM HYDROXIDE SUSPENSION 30 ML UDCUP PO PRN (05:30)
[2022-05-16] MEDS ORDERED: LOPERAMIDE HCL 2 MG CAPSULE PO PRN (05:30)
[2022-05-16] MEDS ORDERED: MAG HYDROX/AL HYDROX/SIMETH ES 30 ML SUSPENSION UDCUP PO PRN (05:30)
[2022-05-16] MEDS ORDERED: ALBUTEROL SULFATE HFA 90 MCG/PUFF 8 GM INHALER IH PRN (05:30)
[2022-05-16] MEDS ORDERED: DOCUSATE SODIUM 100 MG CAPSULE PO PRN (05:30)
[2022-05-16] MEDS ORDERED: BENZOCAINE/MENTHOL LOZENGE PO PRN (05:30)
[2022-05-16] MEDS ORDERED: OMEPRAZOLE 20 MG CAPSULE PO PRN (05:30)
[2022-05-16] MEDS ORDERED: CloNIDine HCL 0.1 MG TABLET PO PRN (05:30)
[2022-05-16] MEDS ORDERED: BACITRACIN 28 GM OINTMENT TP PRN (05:30)
[2022-05-16] MEDS ORDERED: PETROLATUM,WHITE 28 GM JELLY TP PRN (05:30)
[2022-05-16 10:03] VITALS: BP 162/95
[2022-05-16] MEDS: LORazepam 2 MG TABLET PO PRN (13:02)
[2022-05-16 16:42] VITALS: BP 151/93
[2022-05-16] MEDS: DIVALPROEX SODIUM 500 MG DR TABLET PO SCH (18:29)
[2022-05-16] MEDS: OLANZapine 7.5 MG TABLET PO SCH (20:19)
[2022-05-16] MEDS: ZOLPIDEM TARTRATE 10 MG TABLET PO PRN (20:19)
[2022-05-17 09:16] VITALS: BP 103/60
[2022-05-17] MEDS: DIVALPROEX SODIUM 500 MG DR TABLET PO SCH ×2 (09:58→16:54)
[2022-05-17] MEDS: CITALOPRAM HYDROBROMIDE 20 MG TABLET PO SCH (09:58)
[2022-05-17] MEDS: LORazepam 2 MG TABLET PO PRN (12:01)
[2022-05-17] MEDS: HALOPERIDOL 5 MG TABLET PO PRN (12:01)
[2022-05-17 15:24] LABS: BASOPHILS % (AUTO) 0.6 % (0.0-2.0); HEMATOCRIT 44.8 % (41-53); HEMOGLOBIN 15.2 g/dL (13.5-17.5); LYMPHOCYTES # (AUTO) 2.9 K/uL (1.0-4.8); LYMPHOCYTES % (AUTO) 27.9 % (22.0-44.0); MEAN CORPUSCULAR HEMOGLOBIN 28.7 pg (26.0-34.0); MEAN CORPUSCULAR HGB CONC 33.9 G/dL (31.0-37.0); MEAN CORPUSCULAR VOLUME 85 fL (80-100); MONOCYTES # (AUTO) 0.7 K/uL (0.1-1.0); MONOCYTES % (AUTO) 6.7 % (2.0-9.0); NEUTROPHILS # (AUTO) 6.6 K/uL (1.8-7.7); NEUTROPHILS % (AUTO) 62.8 % (40.0-70.0); PLATELET COUNT (AUTO) 189 K/uL (150-450)
[2022-05-17 15:42] LABS: ALANINE AMINOTRANSFERASE 20 U/L (12-78); ALBUMIN 3.5 g/dL (3.4-5.0); ALKALINE PHOSPHATASE 89 U/L (46-116); ANION GAP 8 mmol/L (8-16); ASPARTATE AMINOTRANSFERASE 12 U/L (15-37); BILIRUBIN,TOTAL 0.3 mg/dL (0.1-1.0); CALCIUM, TOTAL 9.2 mg/dL (8.8-10.5); CARBON DIOXIDE 28 mmol/L (22-29); CHLORIDE 101 mmol/L (98-107); CHOL/HDL RATIO 4.5 (4.2-7.3); CHOLESTEROL 204 mg/dL (131-200); CREATININE 1.05 mg/dL (0.60-1.30); GLUCOSE,RANDOM 99 mg/dL (70-110); HDL CHOLESTEROL 45 mg/dL (40-60); LDL CHOL (CALC.) 119 mg/dL (0-130); PHOSPHORUS 4.1 mg/dL (2.5-4.9); POTASSIUM 4.3 mmol/L (3.5-5.1); SODIUM SERUM 137 mmol/L (136-145); THYROID STIMULATING HORMONE 0.81 uIU/mL (0.36-3.74); TRIGLYCERIDES 198 mg/dL (15-150); UREA NITROGEN, BLOOD 15 mg/dL (7-18)
[2022-05-17 15:43] LABS: GLOMERULAR FILTR. RATE CALC > 60 mL/min (>60)
[2022-05-17 18:16] VITALS: BP 115/69
[2022-05-17] MEDS: OLANZapine 7.5 MG TABLET PO SCH (20:26)
[2022-05-17] MEDS: ZOLPIDEM TARTRATE 10 MG TABLET PO PRN (21:16)
[2022-05-18 08:25] VITALS: BP 113/52
[2022-05-18] MEDS: HALOPERIDOL 5 MG TABLET PO PRN (09:14)
[2022-05-18] MEDS: LORazepam 2 MG TABLET PO PRN (09:14)
[2022-05-18] MEDS: DIVALPROEX SODIUM 500 MG DR TABLET PO SCH ×2 (09:14→16:43)
[2022-05-18] MEDS: CITALOPRAM HYDROBROMIDE 20 MG TABLET PO SCH (09:14)
[2022-05-18] MEDS ORDERED: OLAN7.5T22 PO (16:16)
[2022-05-18] MEDS ORDERED: CITA-144 PO (16:16)
[2022-05-18] MEDS ORDERED: DIVA-112 PO (16:16)
[2022-05-18 16:38] VITALS: BP 115/65
[2022-05-18] MEDS: ZOLPIDEM TARTRATE 10 MG TABLET PO PRN (20:13)
[2022-05-18] MEDS: OLANZapine 7.5 MG TABLET PO SCH (20:13)
[2022-05-19] MEDS: CITALOPRAM HYDROBROMIDE 20 MG TABLET PO SCH (09:10)
[2022-05-19] MEDS: DIVALPROEX SODIUM 500 MG DR TABLET PO SCH (09:10)
== END 2022-05-19 12:00 | disposition home or self-care (01) | DRG 750 ==
LOC: EMS 06:12 → 3EI 15:48
PROVIDERS: ADMIT Psychiatry & Neurology Psychiatry; ATTEND Psychiatry & Neurology Psychiatry
DX: F25.1 Schizoaffective disorder, depressive type (principal); R45.851 Suicidal ideations; Z20.822 Contact with and (suspected) exposure to COVID-19; G47.00 Insomnia, unspecified; F31.9 Bipolar disorder, unspecified; I10 Essential (primary) hypertension; J44.9 Chronic obstructive pulmonary disease, unspecified; Z96.649 Presence of unspecified artificial hip joint; E66.9 Obesity, unspecified; F41.9 Anxiety disorder, unspecified; M19.90 Unspecified osteoarthritis, unspecified site; K21.9 Gastro-esophageal reflux disease without esophagitis; G89.29 Other chronic pain; M25.552 Pain in left hip; M25.551 Pain in right hip; K59.00 Constipation, unspecified; Z79.899 Other long term (current) drug therapy; Z87.891 Personal history of nicotine dependence; Z68.34 Body mass index [BMI] 34.0-34.9, adult; Z88.5 Allergy status to narcotic agent
CPT/HCPCS: 80053; 80061; 81001; 83036; 83735; 84100; 84443; 85025; 87081; 87086; 87186; 99285; G0480

== ENCOUNTER 2022-05-21 19:22 | Inpatient (IN) | payer MEDICAID, OTHER ==
[~2022-05-21] VITALS: Ht 177.8 cm; Wt 109.3 kg
[~2022-05-21 19:22] MED LIST changes: +CITA-144 PO; -LITH300C3 PO
[2022-05-21 20:19] LABS: ANION GAP 7 mmol/L (8-16); CARBON DIOXIDE 27 mmol/L (22-29); CHLORIDE 100 mmol/L (98-107); CREATININE 1.07 mg/dL (0.60-1.30); GLUCOSE,RANDOM 106 mg/dL (70-110); POTASSIUM 3.8 mmol/L (3.5-5.1); SODIUM SERUM 134 mmol/L (136-145); UREA NITROGEN, BLOOD 11 mg/dL (7-18)
[2022-05-21 20:20] LABS: BASOPHILS % (AUTO) 0.5 % (0.0-2.0); EOSINOPHILS % (AUTO) 0.7 % (1.0-6.0); HEMATOCRIT 41.6 % (41-53); HEMOGLOBIN 14.3 g/dL (13.5-17.5); LYMPHOCYTES # (AUTO) 2.8 K/uL (1.0-4.8); MEAN CORPUSCULAR HGB CONC 34.5 G/dL (31.0-37.0); MEAN CORPUSCULAR VOLUME 84 fL (80-100); MONOCYTES # (AUTO) 0.8 K/uL (0.1-1.0); NEUTROPHILS # (AUTO) 5.4 K/uL (1.8-7.7); NEUTROPHILS % (AUTO) 58.8 % (40.0-70.0); PLATELET COUNT (AUTO) 202 K/uL (150-450); RED BLOOD CELL COUNT(AUTO) 4.95 MIL/uL (4.50-5.90); RED CELL DISTRIBUTION WIDTH 12.9 % (11.5-14.5)
[2022-05-21 20:22] LABS: GLOMERULAR FILTR. RATE CALC > 60 mL/min (>60)
[2022-05-21 20:25] LABS: ALANINE AMINOTRANSFERASE 19 U/L (12-78); ALBUMIN 3.5 g/dL (3.4-5.0); ALKALINE PHOSPHATASE 85 U/L (46-116); ASPARTATE AMINOTRANSFERASE 13 U/L (15-37); BILIRUBIN,TOTAL 0.3 mg/dL (0.1-1.0); TOTAL PROTEIN, SERUM 6.9 g/dL (6.4-8.2)
[2022-05-21 21:02] LABS: VALPROIC ACID 5 mcg/mL (50-100)
[2022-05-21 22:01] LABS: COVID AG,FIA SOURCE NASAL SWAB
[2022-05-21 22:11] LABS: AMPHET/METH SCREEN,URINE NEGATIVE (NEGATIVE); BARBITURATE SCREEN, URINE NEGATIVE (NEGATIVE); BENZODIAZEPINES SCREEN,URINE NEGATIVE (NEGATIVE); CANNABINOID SCREEN,URINE POSITIVE (NEGATIVE); COCAINE SCREEN,URINE NEGATIVE (NEGATIVE); METHADONE SCREEN, URINE NEGATIVE (NEGATIVE); OPIATE SCREEN,URINE NEGATIVE (NEGATIVE)
[2022-05-21 22:12] LABS: PHENCYCLIDINE SCREEN,URINE NEGATIVE (NEGATIVE)
[2022-05-21 22:24] LABS: APPEARANCE,URINE CLEAR (CLEAR); BILIRUBIN,URINE NEGATIVE (NEGATIVE); GLUCOSE, URINE (UA) NEGATIVE (NEGATIVE); KETONES,URINE NEGATIVE (NEGATIVE); LEUKOCYTE ESTERASE ,URINE TRACE (NEGATIVE); NITRATE,URINE NEGATIVE (NEGATIVE); OCCULT BLOOD,URINE NEGATIVE (NEGATIVE); PROTEIN,URINE NEGATIVE (NEGATIVE); SPECIFIC GRAVITIY, URINE 1.008 (1.003-1.030); UROBILINOGEN,URINE <=1.0 mg/dL (<=1.0)
[2022-05-21 22:30] LABS: BACTERIA,URINE None Seen /HPF (None Seen); RBC,URINE None Seen /HPF (0-2); SQUAMOUS EPITHELIAL CELL,UR Few /LPF (None Seen); WBC,URINE 0-2 /HPF (0-5)
[2022-05-21] MEDS ORDERED: ALBUTEROL SULFATE HFA 90 MCG/PUFF 8 GM INHALER IH ONE (22:45)
[2022-05-21] MEDS: ZOLPIDEM TARTRATE 10 MG TABLET PO PRN (23:12)
[2022-05-22] MEDS: LORazepam 2 MG TABLET PO PRN (11:57)
[2022-05-22] MEDS: ZOLPIDEM TARTRATE 10 MG TABLET PO PRN (20:51)
[2022-05-23] MEDS: LORazepam 2 MG TABLET PO PRN ×3 (01:57→22:57)
[2022-05-23 02:30] VITALS: BP 131/83
[2022-05-23 08:31] VITALS: BP 122/67
[2022-05-23] MEDS ORDERED: IBUPROFEN 600 MG TABLET PO PRN (19:15)
[2022-05-23] MEDS ORDERED: MAG HYDROX/AL HYDROX/SIMETH ES 30 ML SUSPENSION UDCUP PO PRN (19:15)
[2022-05-23] MEDS ORDERED: BACITRACIN 28 GM OINTMENT TP PRN (19:15)
[2022-05-23] MEDS ORDERED: OMEPRAZOLE 20 MG CAPSULE PO PRN (19:15)
[2022-05-23] MEDS ORDERED: CloNIDine HCL 0.1 MG TABLET PO PRN (19:15)
[2022-05-23] MEDS ORDERED: ALBUTEROL SULFATE HFA 90 MCG/PUFF 8 GM INHALER IH PRN (19:15)
[2022-05-23] MEDS ORDERED: DOCUSATE SODIUM 100 MG CAPSULE PO PRN (19:15)
[2022-05-23] MEDS ORDERED: ACETAMINOPHEN 325 MG TABLET PO PRN (19:15)
[2022-05-23] MEDS ORDERED: BENZOCAINE/MENTHOL LOZENGE PO PRN (19:15)
[2022-05-23] MEDS ORDERED: LOPERAMIDE HCL 2 MG CAPSULE PO PRN (19:15)
[2022-05-23] MEDS ORDERED: ONDANSETRON HCL 4 MG TABLET PO PRN (19:15)
[2022-05-23] MEDS ORDERED: PETROLATUM,WHITE 28 GM JELLY TP PRN (19:15)
[2022-05-23] MEDS ORDERED: MAGNESIUM HYDROXIDE SUSPENSION 30 ML UDCUP PO PRN (19:15)
[2022-05-23] MEDS: ZOLPIDEM TARTRATE 10 MG TABLET PO PRN (20:18)
[2022-05-23 20:52] VITALS: BP 123/65
[2022-05-24] MEDS: LORazepam 2 MG TABLET PO PRN (12:35)
[2022-05-24] MEDS: ZOLPIDEM TARTRATE 10 MG TABLET PO PRN (20:27)
[2022-05-24 21:44] VITALS: BP 141/80
[2022-05-25] MEDS: CITALOPRAM HYDROBROMIDE 20 MG TABLET PO SCH (08:19)
[2022-05-25] MEDS: DIVALPROEX SODIUM 500 MG DR TABLET PO SCH ×2 (08:19→16:32)
[2022-05-25] MEDS: LORazepam 2 MG TABLET PO PRN ×3 (08:19→17:18)
[2022-05-25 09:12] VITALS: BP 137/79
[2022-05-25 09:13] VITALS: BP 130/79
[2022-05-25] MEDS: OLANZapine 10 MG TABLET PO SCH (20:07)
[2022-05-25 20:22] VITALS: BP 140/87
[2022-05-25] MEDS: ZOLPIDEM TARTRATE 10 MG TABLET PO PRN (20:34)
[2022-05-26 08:09] VITALS: BP 138/85
[2022-05-26] MEDS: CITALOPRAM HYDROBROMIDE 20 MG TABLET PO SCH (08:35)
[2022-05-26] MEDS: DIVALPROEX SODIUM 500 MG DR TABLET PO SCH ×2 (08:35→16:12)
[2022-05-26] MEDS: LORazepam 2 MG TABLET PO PRN ×2 (08:35→16:12)
[2022-05-26] MEDS: OLANZapine 10 MG TABLET PO SCH (20:01)
[2022-05-26] MEDS: ZOLPIDEM TARTRATE 10 MG TABLET PO PRN (20:02)
[2022-05-26 20:08] VITALS: BP 132/78
[2022-05-27] MEDS: DIVALPROEX SODIUM 500 MG DR TABLET PO SCH ×2 (08:39→17:05)
[2022-05-27] MEDS: LORazepam 2 MG TABLET PO PRN (08:40)
[2022-05-27] MEDS: CITALOPRAM HYDROBROMIDE 20 MG TABLET PO SCH (08:40)
[2022-05-27 08:55] VITALS: BP 119/56
[2022-05-27] MEDS: OLANZapine 10 MG TABLET PO SCH (20:13)
[2022-05-27] MEDS: ZOLPIDEM TARTRATE 10 MG TABLET PO PRN (20:13)
[2022-05-27 20:31] VITALS: BP 135/79
[2022-05-28] MEDS: LORazepam 2 MG TABLET PO PRN ×3 (00:54→23:24)
[2022-05-28] MEDS: CITALOPRAM HYDROBROMIDE 20 MG TABLET PO SCH (08:17)
[2022-05-28] MEDS: DIVALPROEX SODIUM 500 MG DR TABLET PO SCH ×2 (08:17→16:40)
[2022-05-28 08:24] VITALS: BP 124/70
[2022-05-28 16:36] LABS: GLUCOMETER DEV NAME(LOC) POC.BV
[2022-05-28] MEDS: OLANZapine 10 MG TABLET PO SCH (20:22)
[2022-05-28] MEDS: ZOLPIDEM TARTRATE 10 MG TABLET PO PRN (20:22)
[2022-05-28 21:47] VITALS: BP 113/70
[2022-05-29] MEDS: CITALOPRAM HYDROBROMIDE 20 MG TABLET PO SCH (08:11)
[2022-05-29] MEDS: DIVALPROEX SODIUM 500 MG DR TABLET PO SCH ×2 (08:11→17:14)
[2022-05-29] MEDS: LORazepam 2 MG TABLET PO PRN (08:11)
[2022-05-29 10:21] VITALS: BP 129/56
[2022-05-29] MEDS: OLANZapine 10 MG TABLET PO SCH (20:37)
[2022-05-29] MEDS: ZOLPIDEM TARTRATE 10 MG TABLET PO PRN (20:37)
[2022-05-29 23:48] VITALS: BP 130/62
[2022-05-30] MEDS: LORazepam 2 MG TABLET PO PRN ×3 (00:41→23:42)
[2022-05-30 08:04] VITALS: BP 122/68
[2022-05-30] MEDS: DIVALPROEX SODIUM 500 MG DR TABLET PO SCH ×2 (08:07→16:29)
[2022-05-30] MEDS: CITALOPRAM HYDROBROMIDE 20 MG TABLET PO SCH (08:08)
[2022-05-30] MEDS: ZOLPIDEM TARTRATE 10 MG TABLET PO PRN (20:03)
[2022-05-30] MEDS: OLANZapine 10 MG TABLET PO SCH (20:03)
[2022-05-30 20:30] VITALS: BP 140/69
[2022-05-30] MEDS: HALOPERIDOL 5 MG TABLET PO PRN (23:43)
[2022-05-31] MEDS: BuPROPion HCL 75 MG TABLET PO SCH (08:02)
[2022-05-31] MEDS: DIVALPROEX SODIUM 500 MG DR TABLET PO SCH ×2 (08:02→16:30)
[2022-05-31] MEDS: CITALOPRAM HYDROBROMIDE 20 MG TABLET PO SCH (08:02)
[2022-05-31 08:07] VITALS: BP 131/77
[2022-05-31] MEDS: OLANZapine 10 MG TABLET PO SCH (20:27)
[2022-05-31 20:57] VITALS: BP 128/80
[2022-05-31] MEDS: ZOLPIDEM TARTRATE 10 MG TABLET PO PRN (21:39)
[2022-06-01] MEDS: HALOPERIDOL 5 MG TABLET PO PRN (02:00)
[2022-06-01] MEDS: LORazepam 2 MG TABLET PO PRN ×2 (02:00→17:00)
[2022-06-01] MEDS: DIVALPROEX SODIUM 500 MG DR TABLET PO SCH ×2 (08:11→17:00)
[2022-06-01] MEDS: BuPROPion HCL 75 MG TABLET PO SCH (08:12)
[2022-06-01] MEDS: CITALOPRAM HYDROBROMIDE 20 MG TABLET PO SCH (08:12)
[2022-06-01 08:37] VITALS: BP 115/69
[2022-06-01 16:35] LABS: GLUCOMETER DEV NAME(LOC) POC.BV
[2022-06-01] MEDS: OLANZapine 10 MG TABLET PO SCH (20:00)
[2022-06-01] MEDS: ZOLPIDEM TARTRATE 10 MG TABLET PO PRN (20:00)
[2022-06-01 20:10] VITALS: BP 136/73
[2022-06-02] MEDS: LORazepam 2 MG TABLET PO PRN (00:20)
[2022-06-02] MEDS: HALOPERIDOL 5 MG TABLET PO PRN (00:23)
[2022-06-02] MEDS: CITALOPRAM HYDROBROMIDE 20 MG TABLET PO SCH (09:19)
[2022-06-02] MEDS: DIVALPROEX SODIUM 500 MG DR TABLET PO SCH ×2 (09:19→16:54)
[2022-06-02] MEDS: BuPROPion HCL 75 MG TABLET PO SCH (09:19)
[2022-06-02 11:10] VITALS: BP 107/76
== END 2022-06-02 17:38 | disposition home or self-care (01) | DRG 750 ==
LOC: EMS 19:22 → B3A 05-23 00:45
PROVIDERS: ADMIT Psychiatry & Neurology Psychiatry; ATTEND Psychiatry & Neurology Psychiatry
DX: F25.1 Schizoaffective disorder, depressive type (principal); R45.851 Suicidal ideations; Z91.14 Patient's other noncompliance with medication regimen; F31.9 Bipolar disorder, unspecified; Z20.822 Contact with and (suspected) exposure to COVID-19; F41.9 Anxiety disorder, unspecified; I10 Essential (primary) hypertension; J44.9 Chronic obstructive pulmonary disease, unspecified; F17.210 Nicotine dependence, cigarettes, uncomplicated; Z96.649 Presence of unspecified artificial hip joint
CPT/HCPCS: 80053; 80164; 81001; 85025; 87081; 99285; G0480; J3535

== ENCOUNTER 2022-06-05 03:09 | Inpatient (IN) | payer MEDICAID, OTHER ==
[~2022-06-05] VITALS: Ht 177.8 cm; Wt 106.4 kg
[2022-06-05 04:10] LABS: COVID AG,FIA SOURCE NASAL SWAB
[2022-06-05 04:14] LABS: BASOPHILS % (AUTO) 0.4 % (0.0-2.0); EOSINOPHILS % (AUTO) 1.1 % (1.0-6.0); HEMATOCRIT 44.1 % (41-53); HEMOGLOBIN 15.6 g/dL (13.5-17.5); LYMPHOCYTES # (AUTO) 2.8 K/uL (1.0-4.8); LYMPHOCYTES % (AUTO) 24.4 % (22.0-44.0); MEAN CORPUSCULAR HEMOGLOBIN 29.7 pg (26.0-34.0); MEAN CORPUSCULAR HGB CONC 35.2 G/dL (31.0-37.0); MEAN CORPUSCULAR VOLUME 84 fL (80-100); MONOCYTES # (AUTO) 1.1 K/uL (0.1-1.0); MONOCYTES % (AUTO) 9.3 % (2.0-9.0); NEUTROPHILS # (AUTO) 7.4 K/uL (1.8-7.7); NEUTROPHILS % (AUTO) 64.8 % (40.0-70.0); PLATELET COUNT (AUTO) 177 K/uL (150-450); RED BLOOD CELL COUNT(AUTO) 5.24 MIL/uL (4.50-5.90); RED CELL DISTRIBUTION WIDTH 13.1 % (11.5-14.5)
[2022-06-05 04:27] LABS: ANION GAP 7 mmol/L (8-16); CALCIUM, TOTAL 9.5 mg/dL (8.8-10.5); CARBON DIOXIDE 29 mmol/L (22-29); CHLORIDE 101 mmol/L (98-107); CREATININE 1.24 mg/dL (0.60-1.30); GLUCOSE,RANDOM 117 mg/dL (70-110); SODIUM SERUM 137 mmol/L (136-145); UREA NITROGEN, BLOOD 8 mg/dL (7-18)
[2022-06-05 04:30] LABS: GLOMERULAR FILTR. RATE CALC 60 mL/min (>60)
[2022-06-05 04:32] LABS: ALANINE AMINOTRANSFERASE 20 U/L (12-78); ALBUMIN 3.8 g/dL (3.4-5.0); ALKALINE PHOSPHATASE 97 U/L (46-116); ASPARTATE AMINOTRANSFERASE 18 U/L (15-37); BILIRUBIN,TOTAL 0.8 mg/dL (0.1-1.0); TOTAL PROTEIN, SERUM 7.3 g/dL (6.4-8.2)
[2022-06-05 05:09] LABS: AMPHET/METH SCREEN,URINE NEGATIVE (NEGATIVE); APPEARANCE,URINE CLEAR (CLEAR); BARBITURATE SCREEN, URINE NEGATIVE (NEGATIVE); BENZODIAZEPINES SCREEN,URINE NEGATIVE (NEGATIVE); BILIRUBIN,URINE NEGATIVE (NEGATIVE); CANNABINOID SCREEN,URINE POSITIVE (NEGATIVE); COCAINE SCREEN,URINE NEGATIVE (NEGATIVE); GLUCOSE, URINE (UA) NEGATIVE (NEGATIVE); KETONES,URINE NEGATIVE (NEGATIVE); LEUKOCYTE ESTERASE ,URINE SMALL (NEGATIVE); METHADONE SCREEN, URINE NEGATIVE (NEGATIVE); NITRATE,URINE NEGATIVE (NEGATIVE); OCCULT BLOOD,URINE NEGATIVE (NEGATIVE); OPIATE SCREEN,URINE NEGATIVE (NEGATIVE); PH,URINE 6.5 (5.0-8.0); PROTEIN,URINE NEGATIVE (NEGATIVE); SPECIFIC GRAVITIY, URINE 1.017 (1.003-1.030); UROBILINOGEN,URINE <=1.0 mg/dL (<=1.0)
[2022-06-05 05:11] LABS: PHENCYCLIDINE SCREEN,URINE NEGATIVE (NEGATIVE)
[2022-06-05] MEDS: LORazepam 2 MG TABLET PO PRN ×3 (05:22→23:18)
[2022-06-05 05:24] LABS: BACTERIA,URINE None Seen /HPF (None Seen); RBC,URINE 0-2 /HPF (0-2); WBC,URINE 0-2 /HPF (0-5)
[2022-06-05 05:47] VITALS: BP 152/90
[2022-06-05 05:51] VITALS: BP 152/90
[2022-06-05] MEDS: HALOPERIDOL 5 MG TABLET PO PRN ×3 (06:01→23:18)
[2022-06-05] MEDS ORDERED: INFLUENZA VIRUS VACCINE QVS 2022-23 (6MO+)/PF 60 MCG/0.5 ML SYRINGE IM. ONE (06:15)
[2022-06-05] MEDS ORDERED: LOPERAMIDE HCL 2 MG CAPSULE PO PRN (07:00)
[2022-06-05] MEDS ORDERED: PETROLATUM,WHITE 28 GM JELLY TP PRN (07:00)
[2022-06-05] MEDS ORDERED: BACITRACIN 28 GM OINTMENT TP PRN (07:00)
[2022-06-05] MEDS ORDERED: ONDANSETRON HCL 4 MG TABLET PO PRN (07:00)
[2022-06-05] MEDS ORDERED: DOCUSATE SODIUM 100 MG CAPSULE PO PRN (07:00)
[2022-06-05] MEDS ORDERED: IBUPROFEN 600 MG TABLET PO PRN (07:00)
[2022-06-05] MEDS ORDERED: CloNIDine HCL 0.1 MG TABLET PO PRN (07:00)
[2022-06-05] MEDS ORDERED: ACETAMINOPHEN 325 MG TABLET PO PRN (07:00)
[2022-06-05] MEDS ORDERED: OMEPRAZOLE 20 MG CAPSULE PO PRN (07:00)
[2022-06-05] MEDS ORDERED: MAGNESIUM HYDROXIDE SUSPENSION 30 ML UDCUP PO PRN (07:00)
[2022-06-05] MEDS ORDERED: BENZOCAINE/MENTHOL LOZENGE PO PRN (07:00)
[2022-06-05] MEDS ORDERED: MAG HYDROX/AL HYDROX/SIMETH ES 30 ML SUSPENSION UDCUP PO PRN (07:00)
[2022-06-05] MEDS: ALBUTEROL SULFATE HFA 90 MCG/PUFF 8 GM INHALER IH PRN ×2 (11:24→18:32)
[2022-06-05 16:00] VITALS: BP 143/75
[2022-06-05] MEDS: ZOLPIDEM TARTRATE 10 MG TABLET PO PRN (20:36)
[2022-06-06 00:49] VITALS: BP 155/93
[2022-06-06 08:40] VITALS: BP 133/68
[2022-06-06] MEDS: LORazepam 2 MG TABLET PO PRN ×3 (08:46→22:29)
[2022-06-06] MEDS: HALOPERIDOL 5 MG TABLET PO PRN ×2 (14:58→22:30)
[2022-06-06 16:21] VITALS: BP 140/71
[2022-06-06] MEDS: ZOLPIDEM TARTRATE 10 MG TABLET PO PRN (21:10)
[2022-06-07 08:00] VITALS: BP 155/79
[2022-06-07] MEDS: HALOPERIDOL 5 MG TABLET PO PRN ×2 (10:06→15:22)
[2022-06-07] MEDS: LORazepam 2 MG TABLET PO PRN ×2 (10:06→15:22)
[2022-06-07 16:04] VITALS: BP 155/97
[2022-06-07] MEDS ORDERED: OLANZapine 7.5 MG TABLET PO SCH (21:00)
[2022-06-07] MEDS: ZOLPIDEM TARTRATE 10 MG TABLET PO PRN (21:02)
[2022-06-08 08:24] VITALS: BP 140/86
[2022-06-08 12:32] VITALS: BP 138/80
[2022-06-08] MEDS: LORazepam 2 MG TABLET PO PRN (12:34)
[2022-06-08 16:10] VITALS: BP 151/98
[2022-06-10] MEDS ORDERED: OLAN7.5T22 PO (21:42)
== END 2022-06-08 18:04 | disposition home or self-care (01) | DRG 750 ==
LOC: EMS 03:10 → 3EI 04:52
PROVIDERS: ADMIT Psychiatry & Neurology Psychiatry; ATTEND Psychiatry & Neurology Psychiatry
DX: F25.1 Schizoaffective disorder, depressive type (principal); R45.851 Suicidal ideations; F43.10 Post-traumatic stress disorder, unspecified; I10 Essential (primary) hypertension; Z20.822 Contact with and (suspected) exposure to COVID-19; J44.9 Chronic obstructive pulmonary disease, unspecified; F17.210 Nicotine dependence, cigarettes, uncomplicated; Z88.6 Allergy status to analgesic agent
CPT/HCPCS: 80053; 81001; 85025; 87081; 99285; G0480; J3535

== ENCOUNTER 2022-07-16 08:25 | Inpatient (IN) | payer MEDICAID, OTHER ==
[~2022-07-16] VITALS: Ht 182.9 cm
[~2022-07-16 08:25] MED LIST changes: -CITA-144 PO; -DIVA-112 PO
[2022-07-16 09:06] LABS: COVID AG,FIA SOURCE NASOPHARYNGEAL
[2022-07-16 09:21] LABS: BASOPHILS % (AUTO) 0.8 % (0.0-2.0); EOSINOPHILS % (AUTO) 2.3 % (1.0-6.0); HEMATOCRIT 45.4 % (41-53); HEMOGLOBIN 15.7 g/dL (13.5-17.5); LYMPHOCYTES # (AUTO) 1.9 K/uL (1.0-4.8); LYMPHOCYTES % (AUTO) 24.8 % (22.0-44.0); MEAN CORPUSCULAR HEMOGLOBIN 29.7 pg (26.0-34.0); MEAN CORPUSCULAR HGB CONC 34.6 G/dL (31.0-37.0); MEAN CORPUSCULAR VOLUME 86 fL (80-100); MONOCYTES # (AUTO) 0.7 K/uL (0.1-1.0); MONOCYTES % (AUTO) 8.5 % (2.0-9.0); NEUTROPHILS # (AUTO) 4.9 K/uL (1.8-7.7); NEUTROPHILS % (AUTO) 63.6 % (40.0-70.0); PLATELET COUNT (AUTO) 176 K/uL (150-450); RED BLOOD CELL COUNT(AUTO) 5.29 MIL/uL (4.50-5.90); RED CELL DISTRIBUTION WIDTH 13.9 % (11.5-14.5)
[2022-07-16] MEDS ORDERED: ValACYclovir HCL 500 MG TABLET PO ONE (09:30)
[2022-07-16] MEDS ORDERED: PredniSONE 20 MG TABLET PO ONE (09:30)
[2022-07-16 09:31] LABS: ANION GAP 5 mmol/L (8-16); CALCIUM, TOTAL 8.9 mg/dL (8.8-10.5); CARBON DIOXIDE 29 mmol/L (22-29); CHLORIDE 104 mmol/L (98-107); CREATININE 1.13 mg/dL (0.60-1.30); GLOMERULAR FILTR. RATE CALC > 60 mL/min (>60); GLUCOSE,RANDOM 114 mg/dL (70-110); POTASSIUM 4.3 mmol/L (3.5-5.1); SODIUM SERUM 138 mmol/L (136-145); UREA NITROGEN, BLOOD 7 mg/dL (7-18)
[2022-07-16 09:37] LABS: ALANINE AMINOTRANSFERASE 19 U/L (12-78); ALBUMIN 3.7 g/dL (3.4-5.0); ALKALINE PHOSPHATASE 100 U/L (46-116); ASPARTATE AMINOTRANSFERASE 16 U/L (15-37); BILIRUBIN,TOTAL 0.9 mg/dL (0.1-1.0); TOTAL PROTEIN, SERUM 7.3 g/dL (6.4-8.2)
[2022-07-16] MEDS ORDERED: ACETAMINOPHEN 325 MG TABLET PO PRN ×2 (10:15→18:45)
[2022-07-16] MEDS ORDERED: LORazepam 2 MG TABLET PO ONE (10:15)
[2022-07-16] MEDS ORDERED: HALOPERIDOL 5 MG TABLET PO ONE (10:15)
[2022-07-16] MEDS ORDERED: BENZTROPINE MESYLATE 2 MG TABLET PO ONE (10:15)
[2022-07-16] MEDS ORDERED: HYDROCODONE/ACETAMINOPHEN 5-325 MG TABLET PO ONE (10:15)
[2022-07-16 12:00] VITALS: BP 151/89
[2022-07-16 12:00] LABS: APPEARANCE,URINE CLEAR (CLEAR); BILIRUBIN,URINE NEGATIVE (NEGATIVE); GLUCOSE, URINE (UA) NEGATIVE (NEGATIVE); KETONES,URINE NEGATIVE (NEGATIVE); LEUKOCYTE ESTERASE ,URINE SMALL (NEGATIVE); NITRATE,URINE NEGATIVE (NEGATIVE); OCCULT BLOOD,URINE NEGATIVE (NEGATIVE); PROTEIN,URINE NEGATIVE (NEGATIVE); SPECIFIC GRAVITIY, URINE 1.011 (1.003-1.030); UROBILINOGEN,URINE <=1.0 mg/dL (<=1.0)
[2022-07-16 12:13] LABS: BACTERIA,URINE None Seen /HPF (None Seen); RBC,URINE None Seen /HPF (0-2)
[2022-07-16 12:14] LABS: AMPHET/METH SCREEN,URINE NEGATIVE (NEGATIVE); BARBITURATE SCREEN, URINE NEGATIVE (NEGATIVE); BENZODIAZEPINES SCREEN,URINE NEGATIVE (NEGATIVE); CANNABINOID SCREEN,URINE POSITIVE (NEGATIVE); COCAINE SCREEN,URINE NEGATIVE (NEGATIVE); METHADONE SCREEN, URINE NEGATIVE (NEGATIVE); OPIATE SCREEN,URINE NEGATIVE (NEGATIVE)
[2022-07-16 12:18] LABS: PHENCYCLIDINE SCREEN,URINE NEGATIVE (NEGATIVE)
[2022-07-16] MEDS ORDERED: OLAN20TA20 PO (13:46)
[2022-07-16] MEDS ORDERED: MIRT-92 PO (13:46)
[2022-07-16] MEDS ORDERED: TRAZ-252 PO (13:46)
[2022-07-16 16:00] VITALS: BP_SYST 124; BP_SYST 146; BP_DIAS 69; BP_DIAS 76
[2022-07-16] MEDS ORDERED: LOPERAMIDE HCL 2 MG CAPSULE PO PRN (18:45)
[2022-07-16] MEDS ORDERED: DOCUSATE SODIUM 100 MG CAPSULE PO PRN (18:45)
[2022-07-16] MEDS ORDERED: MAG HYDROX/AL HYDROX/SIMETH ES 30 ML SUSPENSION UDCUP PO PRN (18:45)
[2022-07-16] MEDS ORDERED: MAGNESIUM HYDROXIDE SUSPENSION 30 ML UDCUP PO PRN (18:45)
[2022-07-16] MEDS ORDERED: IBUPROFEN 400 MG TABLET PO PRN (18:45)
[2022-07-16] MEDS ORDERED: GuaiFENesin/D-METHORPHAN [SUGAR-FREE] 200-20MG/10 ML SYRUP UDCUP PO PRN (18:45)
[2022-07-16] MEDS ORDERED: CloNIDine HCL 0.1 MG TABLET PO PRN (18:45)
[2022-07-16] MEDS ORDERED: ONDANSETRON HCL 4 MG TABLET PO PRN (18:45)
[2022-07-16] MEDS ORDERED: NICOTINE 14 MG/24 HOUR PATCH TD PRN (18:45)
[2022-07-16] MEDS ORDERED: ALBUTEROL SULFATE HFA 90 MCG/PUFF 8 GM INHALER IH PRN (18:45)
[2022-07-16] MEDS ORDERED: PETROLATUM,WHITE 28 GM JELLY TP PRN (18:45)
[2022-07-16] MEDS: HALOPERIDOL 5 MG TABLET PO PRN (20:01)
[2022-07-16] MEDS: LORazepam 2 MG TABLET PO PRN (20:01)
[2022-07-16] MEDS: OLANZapine 10 MG TABLET PO SCH (21:10)
[2022-07-16] MEDS: TraZODone HCL 50 MG TABLET PO SCH (21:10)
[2022-07-16] MEDS: MIRTAZAPINE 15 MG TABLET PO SCH (21:10)
[2022-07-16] MEDS: ValACYclovir HCL 500 MG TABLET PO SCH (21:10)
[2022-07-17] MEDS: ValACYclovir HCL 500 MG TABLET PO SCH ×3 (03:59→20:18)
[2022-07-17 07:54] LABS: HEMOGLOBIN A1C 5.1 % (3.8-5.6)
[2022-07-17 07:57] LABS: CHOL/HDL RATIO 2.8 (4.2-7.3)
[2022-07-17 07:58] LABS: ALANINE AMINOTRANSFERASE 19 U/L (12-78); ALBUMIN 3.5 g/dL (3.4-5.0); ALKALINE PHOSPHATASE 87 U/L (46-116); ANION GAP 7 mmol/L (8-16); ASPARTATE AMINOTRANSFERASE 14 U/L (15-37); BILIRUBIN,TOTAL 0.7 mg/dL (0.1-1.0); CALCIUM, TOTAL 8.9 mg/dL (8.8-10.5); CARBON DIOXIDE 25 mmol/L (22-29); CHLORIDE 104 mmol/L (98-107); GLUCOSE,RANDOM 118 mg/dL (70-110); POTASSIUM 3.6 mmol/L (3.5-5.1); SODIUM SERUM 136 mmol/L (136-145); UREA NITROGEN, BLOOD 12 mg/dL (7-18)
[2022-07-17 08:04] LABS: GLOMERULAR FILTR. RATE CALC > 60 mL/min (>60)
[2022-07-17] MEDS: PredniSONE 20 MG TABLET PO SCH (09:01)
[2022-07-17 09:44] VITALS: BP 126/70
[2022-07-17 16:00] VITALS: BP 118/78
[2022-07-17] MEDS: MIRTAZAPINE 15 MG TABLET PO SCH (20:18)
[2022-07-17] MEDS: TraZODone HCL 50 MG TABLET PO SCH (20:18)
[2022-07-17] MEDS: OLANZapine 10 MG TABLET PO SCH (20:18)
[2022-07-17] MEDS: HALOPERIDOL 5 MG TABLET PO PRN (21:25)
[2022-07-17] MEDS: LORazepam 2 MG TABLET PO PRN (21:26)
[2022-07-18] MEDS: ValACYclovir HCL 500 MG TABLET PO SCH ×3 (04:00→20:23)
[2022-07-18] MEDS: PredniSONE 20 MG TABLET PO SCH (09:35)
[2022-07-18 09:58] VITALS: BP 120/75
[2022-07-18 16:34] VITALS: BP 133/78
[2022-07-18] MEDS: MIRTAZAPINE 15 MG TABLET PO SCH (20:23)
[2022-07-18] MEDS: OLANZapine 10 MG TABLET PO SCH (20:23)
[2022-07-18] MEDS: TraZODone HCL 50 MG TABLET PO SCH (20:23)
[2022-07-19] MEDS: ValACYclovir HCL 500 MG TABLET PO SCH ×3 (04:11→20:41)
[2022-07-19 08:00] VITALS: BP 170/95
[2022-07-19] MEDS: PredniSONE 20 MG TABLET PO SCH (09:34)
[2022-07-19 16:00] VITALS: BP 126/88
[2022-07-19] MEDS: MIRTAZAPINE 15 MG TABLET PO SCH (20:41)
[2022-07-19] MEDS: TraZODone HCL 50 MG TABLET PO SCH (20:41)
[2022-07-19] MEDS: OLANZapine 10 MG TABLET PO SCH (20:41)
[2022-07-19] MEDS: LORazepam 2 MG TABLET PO PRN (21:33)
[2022-07-20] MEDS: ValACYclovir HCL 500 MG TABLET PO SCH ×2 (03:50→12:26)
[2022-07-20] MEDS: PredniSONE 20 MG TABLET PO SCH (09:09)
[2022-07-20 09:16] VITALS: BP 140/89
[2022-07-20] MEDS ORDERED: OLAN10 PO (11:15)
[2022-07-20] MEDS ORDERED: TRAZ-252 PO (11:15)
[2022-07-20] MEDS ORDERED: MIRT-89 PO (11:15)
[2022-07-20] MEDS ORDERED: PRED-554 PO (12:24)
[2022-07-20] MEDS ORDERED: VALA500T42 PO (12:27)
[2022-07-22] MEDS ORDERED: PredniSONE 20 MG TABLET PO SCH (09:00)
== END 2022-07-20 12:29 | disposition home or self-care (01) | DRG 750 ==
LOC: EMS 08:31 → 3EI 11:10
PROVIDERS: ADMIT Psychiatry & Neurology Psychiatry; ATTEND Psychiatry & Neurology Psychiatry
DX: F25.1 Schizoaffective disorder, depressive type (principal); F10.10 Alcohol abuse, uncomplicated; F12.10 Cannabis abuse, uncomplicated; Z20.822 Contact with and (suspected) exposure to COVID-19; I10 Essential (primary) hypertension; J44.9 Chronic obstructive pulmonary disease, unspecified; M19.90 Unspecified osteoarthritis, unspecified site; Y90.9 Presence of alcohol in blood, level not specified; F19.10 Other psychoactive substance abuse, uncomplicated; Z88.6 Allergy status to analgesic agent
CPT/HCPCS: 80053; 80061; 80307; 81001; 83036; 84484; 85025; 93005; 99285; G0480

== ENCOUNTER 2022-10-02 06:23 | Inpatient (IN) | payer MEDICAID, OTHER ==
[~2022-10-02] VITALS: Ht 177.8 cm; Wt 114.3 kg
[~2022-10-02 06:23] MED LIST changes: +MIRT-89 PO; +OLAN10 PO; -OLAN7.5T22 PO; +PRED-554 PO; +TRAZ-252 PO; +VALA500T42 PO
[2022-10-02 07:54] LABS: BASOPHILS % (AUTO) 0.7 % (0.0-2.0); EOSINOPHILS % (AUTO) 1.4 % (1.0-6.0); HEMATOCRIT 45.2 % (41-53); HEMOGLOBIN 15.7 g/dL (13.5-17.5); LYMPHOCYTES # (AUTO) 2.2 K/uL (1.0-4.8); MEAN CORPUSCULAR HEMOGLOBIN 29.5 pg (26.0-34.0); MEAN CORPUSCULAR HGB CONC 34.7 G/dL (31.0-37.0); MEAN CORPUSCULAR VOLUME 85 fL (80-100); MONOCYTES # (AUTO) 0.7 K/uL (0.1-1.0); MONOCYTES % (AUTO) 8.1 % (2.0-9.0); NEUTROPHILS # (AUTO) 5.6 K/uL (1.8-7.7); NEUTROPHILS % (AUTO) 64.8 % (40.0-70.0); PLATELET COUNT (AUTO) 229 K/uL (150-450); RED BLOOD CELL COUNT(AUTO) 5.32 MIL/uL (4.50-5.90); RED CELL DISTRIBUTION WIDTH 13.7 % (11.5-14.5)
[2022-10-02 08:08] LABS: ANION GAP 8 mmol/L (8-16); CALCIUM, TOTAL 9.2 mg/dL (8.8-10.5); CARBON DIOXIDE 26 mmol/L (22-29); CHLORIDE 102 mmol/L (98-107); CREATININE 0.98 mg/dL (0.60-1.30); GLOMERULAR FILTR. RATE CALC > 60 mL/min (>60); GLUCOSE,RANDOM 100 mg/dL (70-110); POTASSIUM 3.9 mmol/L (3.5-5.1); SODIUM SERUM 136 mmol/L (136-145); UREA NITROGEN, BLOOD 10 mg/dL (7-18)
[2022-10-02 08:15] LABS: ALANINE AMINOTRANSFERASE 20 U/L (12-78); ALBUMIN 3.6 g/dL (3.4-5.0); ALKALINE PHOSPHATASE 91 U/L (46-116); ASPARTATE AMINOTRANSFERASE 17 U/L (15-37); BILIRUBIN,TOTAL 0.4 mg/dL (0.1-1.0); TOTAL PROTEIN, SERUM 7.3 g/dL (6.4-8.2)
[2022-10-02 08:47] LABS: AMPHET/METH SCREEN,URINE NEGATIVE (NEGATIVE); BARBITURATE SCREEN, URINE NEGATIVE (NEGATIVE); BENZODIAZEPINES SCREEN,URINE NEGATIVE (NEGATIVE); CANNABINOID SCREEN,URINE NEGATIVE (NEGATIVE); COCAINE SCREEN,URINE NEGATIVE (NEGATIVE); METHADONE SCREEN, URINE NEGATIVE (NEGATIVE); OPIATE SCREEN,URINE NEGATIVE (NEGATIVE); PHENCYCLIDINE SCREEN,URINE NEGATIVE (NEGATIVE)
[2022-10-02] MEDS: LORazepam 2 MG TABLET PO PRN ×2 (09:58→17:18)
[2022-10-02 10:36] LABS: COVID AG,FIA SOURCE NASAL SWAB
[2022-10-02 14:30] VITALS: BP 142/83
[2022-10-02] MEDS: OLANZapine 5 MG RAPDIS TABLET PO PRN (17:18)
[2022-10-02 20:14] VITALS: BP 106/66
[2022-10-02] MEDS: ZOLPIDEM TARTRATE 10 MG TABLET PO PRN (20:16)
[2022-10-03] MEDS: LORazepam 2 MG TABLET PO PRN ×3 (09:08→23:45)
[2022-10-03] MEDS: OLANZapine 5 MG RAPDIS TABLET PO PRN ×3 (09:08→23:45)
[2022-10-03 20:28] VITALS: BP 131/83
[2022-10-03] MEDS: ZOLPIDEM TARTRATE 10 MG TABLET PO PRN (20:49)
[2022-10-03] MEDS: OLANZapine 10 MG TABLET PO SCH (20:49)
[2022-10-03] MEDS: MIRTAZAPINE 15 MG TABLET PO SCH (20:49)
[2022-10-03] MEDS: TraZODone HCL 50 MG TABLET PO SCH (20:49)
[2022-10-04 10:09] VITALS: BP 139/85
[2022-10-04] MEDS: LORazepam 2 MG TABLET PO PRN (18:38)
[2022-10-04] MEDS: MIRTAZAPINE 15 MG TABLET PO SCH (20:15)
[2022-10-04] MEDS: TraZODone HCL 50 MG TABLET PO SCH (20:15)
[2022-10-04] MEDS: OLANZapine 10 MG TABLET PO SCH (20:15)
[2022-10-04 20:29] VITALS: BP 110/60
[2022-10-05 08:42] VITALS: BP 117/60
[2022-10-05] MEDS ORDERED: TUBERCULIN, PURIFIED PROTEIN DERIVATIVE 5 TU/0.1 ML SYRINGE ID ONE (14:15)
[2022-10-05] MEDS ORDERED: MAGNESIUM HYDROXIDE SUSPENSION 30 ML UDCUP PO PRN (14:15)
[2022-10-05] MEDS ORDERED: HydrOXYzine PAMOATE 50 MG CAPSULE PO PRN (14:15)
[2022-10-05] MEDS ORDERED: PROMETHAZINE HCL 25 MG TABLET PO PRN (14:15)
[2022-10-05] MEDS ORDERED: ACETAMINOPHEN 325 MG TABLET PO PRN (14:15)
[2022-10-05] MEDS ORDERED: LOPERAMIDE HCL 2 MG CAPSULE PO PRN (14:15)
[2022-10-05] MEDS ORDERED: MAG HYDROX/AL HYDROX/SIMETH ES 30 ML SUSPENSION UDCUP PO PRN (14:15)
[2022-10-05] MEDS ORDERED: GuaiFENesin/D-METHORPHAN [SUGAR-FREE] 200-20MG/10 ML SYRUP UDCUP PO PRN (14:15)
[2022-10-05] MEDS: THIAMINE 100 MG TABLET PO SCH (17:20)
[2022-10-05] MEDS: LORazepam 2 MG TABLET PO PRN (17:20)
[2022-10-05 20:13] VITALS: BP 129/72
[2022-10-05] MEDS ORDERED: FluPHENAZine HCL 10 MG TABLET PO PRN (20:15)
[2022-10-05] MEDS: MIRTAZAPINE 15 MG TABLET PO SCH (20:58)
[2022-10-05] MEDS: MELATONIN 5 MG TABLET PO SCH (20:58)
[2022-10-05] MEDS: TraZODone HCL 50 MG TABLET PO SCH (20:58)
[2022-10-05] MEDS ORDERED: OLANZapine 7.5 MG TABLET PO SCH (21:00)
[2022-10-05] MEDS ORDERED: FluPHENAZine HCL 10 MG TABLET PO SCH (21:00)
[2022-10-06 07:59] LABS: HEMOGLOBIN A1C 5.4 % (3.8-5.6)
[2022-10-06 08:15] LABS: CHOL/HDL RATIO 4.2 (4.2-7.3); FREE T4 (FREE THYROXINE) 0.89 ng/dL (0.76-1.46); THYROID STIMULATING HORMONE 0.94 uIU/mL (0.36-3.74)
[2022-10-06] MEDS: FOLIC ACID 1 MG TABLET PO SCH (08:28)
[2022-10-06] MEDS: OMEGA-3/DHA/EPA/FISH OIL 1,000 MG CAPSULE PO SCH (08:28)
[2022-10-06] MEDS: THIAMINE 100 MG TABLET PO SCH ×2 (08:29→17:19)
[2022-10-06] MEDS: MULTIVITAMINS WITH MINERALS, THERAPEUTIC TABLET PO SCH (08:29)
[2022-10-06] MEDS: NALTREXONE HCL 50 MG TABLET PO SCH (08:29)
[2022-10-06] MEDS ORDERED: FLUoxetine HCL 20 MG CAPSULE PO SCH (09:00)
[2022-10-06] MEDS: LORazepam 2 MG TABLET PO PRN ×2 (14:13→21:03)
[2022-10-06] MEDS ORDERED: OLANZapine 5 MG RAPDIS TABLET PO PRN (16:15)
[2022-10-06 20:16] VITALS: BP 128/70
[2022-10-06] MEDS ORDERED: OLANZapine 7.5 MG TABLET PO SCH (21:00)
[2022-10-06] MEDS: MIRTAZAPINE 15 MG TABLET PO SCH (21:02)
[2022-10-06] MEDS: MELATONIN 5 MG TABLET PO SCH (21:02)
[2022-10-06] MEDS: TraZODone HCL 100 MG TABLET PO SCH (21:02)
[2022-10-07] MEDS: NALTREXONE HCL 50 MG TABLET PO SCH (08:33)
[2022-10-07] MEDS: BuPROPion HCL XL 150 MG ER TABLET PO SCH (08:33)
[2022-10-07] MEDS: THIAMINE 100 MG TABLET PO SCH ×2 (08:33→16:59)
[2022-10-07] MEDS: FOLIC ACID 1 MG TABLET PO SCH (08:33)
[2022-10-07] MEDS: OMEGA-3/DHA/EPA/FISH OIL 1,000 MG CAPSULE PO SCH (08:33)
[2022-10-07] MEDS: MULTIVITAMINS WITH MINERALS, THERAPEUTIC TABLET PO SCH (08:33)
[2022-10-07 08:40] VITALS: BP 110/73
[2022-10-07] MEDS: LORazepam 2 MG TABLET PO PRN ×2 (17:00→21:01)
[2022-10-07 20:17] VITALS: BP 114/68
[2022-10-07] MEDS: OLANZapine 10 MG TABLET PO SCH (20:25)
[2022-10-07] MEDS: MELATONIN 5 MG TABLET PO SCH (20:26)
[2022-10-07] MEDS: TraZODone HCL 100 MG TABLET PO SCH (20:26)
[2022-10-07] MEDS: MIRTAZAPINE 15 MG TABLET PO SCH (20:26)
[2022-10-07] MEDS: ZOLPIDEM TARTRATE 10 MG TABLET PO PRN (21:01)
[2022-10-08 08:24] VITALS: BP 126/89
[2022-10-08] MEDS: THIAMINE 100 MG TABLET PO SCH ×2 (08:25→16:32)
[2022-10-08] MEDS: MULTIVITAMINS WITH MINERALS, THERAPEUTIC TABLET PO SCH (08:25)
[2022-10-08] MEDS: BuPROPion HCL XL 150 MG ER TABLET PO SCH (08:25)
[2022-10-08] MEDS: OMEGA-3/DHA/EPA/FISH OIL 1,000 MG CAPSULE PO SCH (08:25)
[2022-10-08] MEDS: NALTREXONE HCL 50 MG TABLET PO SCH (08:25)
[2022-10-08] MEDS: FOLIC ACID 1 MG TABLET PO SCH (08:25)
[2022-10-08 14:11] LABS: GLUCOMETER DEV NAME(LOC) POC.BV
[2022-10-08] MEDS: LORazepam 2 MG TABLET PO PRN (16:32)
[2022-10-08] MEDS: TraZODone HCL 100 MG TABLET PO SCH (20:02)
[2022-10-08] MEDS: MELATONIN 5 MG TABLET PO SCH (20:02)
[2022-10-08] MEDS: MIRTAZAPINE 15 MG TABLET PO SCH (20:02)
[2022-10-08] MEDS: OLANZapine 10 MG TABLET PO SCH (20:02)
[2022-10-08 20:07] VITALS: BP 134/84
[2022-10-09] MEDS: FOLIC ACID 1 MG TABLET PO SCH (08:42)
[2022-10-09] MEDS: MULTIVITAMINS WITH MINERALS, THERAPEUTIC TABLET PO SCH (08:43)
[2022-10-09] MEDS: LORazepam 2 MG TABLET PO PRN ×2 (08:43→17:27)
[2022-10-09] MEDS: OMEGA-3/DHA/EPA/FISH OIL 1,000 MG CAPSULE PO SCH (08:43)
[2022-10-09] MEDS: THIAMINE 100 MG TABLET PO SCH ×2 (08:43→17:27)
[2022-10-09] MEDS: NALTREXONE HCL 50 MG TABLET PO SCH (08:43)
[2022-10-09 08:47] VITALS: BP 134/62
[2022-10-09] MEDS ORDERED: BuPROPion HCL XL 150 MG ER TABLET PO SCH (09:00)
[2022-10-09] MEDS ORDERED: BUPR-49 PO (14:53)
[2022-10-09] MEDS ORDERED: TRAZ-257 PO (14:53)
[2022-10-09] MEDS ORDERED: MELA5TAB40 PO (14:53)
[2022-10-09] MEDS ORDERED: OLAN10 PO (14:53)
[2022-10-09] MEDS ORDERED: MIRT-89 PO (14:53)
[2022-10-09] MEDS ORDERED: NALT50TA PO (14:53)
== END 2022-10-09 18:00 | disposition home or self-care (01) | DRG 750 ==
LOC: EMS 06:25 → B3A 10:52
PROVIDERS: ADMIT Psychiatry & Neurology Psychiatry; ATTEND Psychiatry & Neurology Psychiatry
DX: F25.1 Schizoaffective disorder, depressive type (principal); R45.851 Suicidal ideations; Z20.822 Contact with and (suspected) exposure to COVID-19; E78.5 Hyperlipidemia, unspecified; F17.210 Nicotine dependence, cigarettes, uncomplicated; F43.10 Post-traumatic stress disorder, unspecified; F90.9 Attention-deficit hyperactivity disorder, unspecified type; G47.00 Insomnia, unspecified; I10 Essential (primary) hypertension; Z55.9 Problems related to education and literacy, unspecified; Z59.9 Problem related to housing and economic circumstances, unspecified; Z63.9 Problem related to primary support group, unspecified; Z65.3 Problems related to other legal circumstances; Z79.899 Other long term (current) drug therapy; Z82.49 Family history of ischemic heart disease and other diseases of the circulatory system; Z82.5 Family history of asthma and other chronic lower respiratory diseases; Z83.3 Family history of diabetes mellitus; Z91.51 Personal history of suicidal behavior; Z88.5 Allergy status to narcotic agent
CPT/HCPCS: 80053; 80061; 80307; 83036; 84439; 84443; 85025; 86592; 99285; G0480; Q9967

== ENCOUNTER 2022-11-15 12:36 | Inpatient (IN) | payer MEDICAID ==
[~2022-11-15] VITALS: Ht 177.8 cm; Wt 120.1 kg
[~2022-11-15 12:36] MED LIST changes: +BUPR-49 PO; +MELA5TAB40 PO; +NALT50TA PO; -PRED-554 PO; -TRAZ-252 PO; +TRAZ-257 PO; -VALA500T42 PO
[2022-11-15 13:50] LABS: COVID AG,FIA SOURCE NASOPHARYNGEAL
[2022-11-15 14:02] LABS: BASOPHILS % (AUTO) 0.6 % (0.0-2.0); EOSINOPHILS % (AUTO) 0.8 % (1.0-6.0); HEMATOCRIT 44.7 % (41-53); HEMOGLOBIN 15.3 g/dL (13.5-17.5); LYMPHOCYTES # (AUTO) 2.2 K/uL (1.0-4.8); MEAN CORPUSCULAR HEMOGLOBIN 29.5 pg (26.0-34.0); MEAN CORPUSCULAR HGB CONC 34.1 G/dL (31.0-37.0); MEAN CORPUSCULAR VOLUME 87 fL (80-100); MONOCYTES # (AUTO) 0.9 K/uL (0.1-1.0); MONOCYTES % (AUTO) 8.7 % (2.0-9.0); NEUTROPHILS # (AUTO) 6.5 K/uL (1.8-7.7); NEUTROPHILS % (AUTO) 66.9 % (40.0-70.0); PLATELET COUNT (AUTO) 216 K/uL (150-450); RED BLOOD CELL COUNT(AUTO) 5.17 MIL/uL (4.50-5.90); RED CELL DISTRIBUTION WIDTH 13.9 % (11.5-14.5)
[2022-11-15 14:13] LABS: ANION GAP 11 mmol/L (8-16); CALCIUM, TOTAL 8.8 mg/dL (8.8-10.5); CARBON DIOXIDE 24 mmol/L (22-29); CHLORIDE 99 mmol/L (98-107); CREATININE 0.98 mg/dL (0.60-1.30); GLOMERULAR FILTR. RATE CALC > 60 mL/min (>60); GLUCOSE,RANDOM 107 mg/dL (70-110); POTASSIUM 3.7 mmol/L (3.5-5.1); SODIUM SERUM 134 mmol/L (136-145)
[2022-11-15] MEDS ORDERED: LORazepam 2 MG TABLET PO ONE (14:15)
[2022-11-15] MEDS ORDERED: DiphenhydrAMINE HCL 25 MG CAPSULE PO ONE (14:15)
[2022-11-15] MEDS ORDERED: ACETAMINOPHEN 500 MG TABLET PO ONE (14:15)
[2022-11-15] MEDS ORDERED: HALOPERIDOL 5 MG TABLET PO ONE (14:15)
[2022-11-15 14:23] LABS: ALANINE AMINOTRANSFERASE 29 U/L (12-78); ALBUMIN 3.4 g/dL (3.4-5.0); ALKALINE PHOSPHATASE 76 U/L (46-116); ASPARTATE AMINOTRANSFERASE 28 U/L (15-37); BILIRUBIN,TOTAL 0.4 mg/dL (0.1-1.0); TOTAL PROTEIN, SERUM 7.1 g/dL (6.4-8.2)
[2022-11-15 14:29] LABS: AMPHET/METH SCREEN,URINE NEGATIVE (NEGATIVE); BARBITURATE SCREEN, URINE NEGATIVE (NEGATIVE); BENZODIAZEPINES SCREEN,URINE NEGATIVE (NEGATIVE); CANNABINOID SCREEN,URINE NEGATIVE (NEGATIVE); COCAINE SCREEN,URINE NEGATIVE (NEGATIVE); METHADONE SCREEN, URINE NEGATIVE (NEGATIVE); OPIATE SCREEN,URINE NEGATIVE (NEGATIVE); PHENCYCLIDINE SCREEN,URINE NEGATIVE (NEGATIVE)
[2022-11-15 15:39] LABS: APPEARANCE,URINE CLEAR (CLEAR); BILIRUBIN,URINE NEGATIVE (NEGATIVE); GLUCOSE, URINE (UA) NEGATIVE (NEGATIVE); KETONES,URINE NEGATIVE (NEGATIVE); LEUKOCYTE ESTERASE ,URINE MODERATE (NEGATIVE); NITRATE,URINE NEGATIVE (NEGATIVE); OCCULT BLOOD,URINE NEGATIVE (NEGATIVE); PH,URINE 5.5 (5.0-8.0); PROTEIN,URINE NEGATIVE (NEGATIVE); SPECIFIC GRAVITIY, URINE 1.006 (1.003-1.030); UROBILINOGEN,URINE <=1.0 mg/dL (<=1.0)
[2022-11-15 15:50] LABS: BACTERIA,URINE Rare /HPF (None Seen); RBC,URINE 0-2 /HPF (0-2); SQUAMOUS EPITHELIAL CELL,UR Rare /LPF (None Seen)
[2022-11-15] MEDS: HALOPERIDOL 5 MG TABLET PO PRN (19:57)
[2022-11-15] MEDS: LORazepam 2 MG TABLET PO PRN (19:57)
[2022-11-16] MEDS: LORazepam 2 MG TABLET PO PRN ×3 (00:12→17:23)
[2022-11-16] MEDS: HALOPERIDOL 5 MG TABLET PO PRN ×2 (00:12→17:23)
[2022-11-16] MEDS: ZOLPIDEM TARTRATE 10 MG TABLET PO PRN ×2 (00:12→20:17)
[2022-11-16 00:31] VITALS: BP 153/100
[2022-11-16 08:49] VITALS: BP 169/91
[2022-11-16] MEDS ORDERED: LOPERAMIDE HCL 2 MG CAPSULE PO PRN (09:00)
[2022-11-16] MEDS ORDERED: ALBUTEROL SULFATE HFA 90 MCG/PUFF 8 GM INHALER IH PRN (09:00)
[2022-11-16] MEDS ORDERED: PETROLATUM,WHITE 28 GM JELLY TP PRN (09:00)
[2022-11-16] MEDS ORDERED: OMEPRAZOLE 20 MG CAPSULE PO PRN (09:00)
[2022-11-16] MEDS ORDERED: CloNIDine HCL 0.1 MG TABLET PO PRN (09:00)
[2022-11-16] MEDS ORDERED: BACITRACIN 28 GM OINTMENT TP PRN (09:00)
[2022-11-16] MEDS ORDERED: ACETAMINOPHEN 325 MG TABLET PO PRN (09:00)
[2022-11-16] MEDS ORDERED: MAGNESIUM HYDROXIDE SUSPENSION 30 ML UDCUP PO PRN (09:00)
[2022-11-16] MEDS ORDERED: MAG HYDROX/AL HYDROX/SIMETH ES 30 ML SUSPENSION UDCUP PO PRN (09:00)
[2022-11-16] MEDS ORDERED: IBUPROFEN 600 MG TABLET PO PRN (09:00)
[2022-11-16] MEDS ORDERED: DOCUSATE SODIUM 100 MG CAPSULE PO PRN (09:00)
[2022-11-16] MEDS ORDERED: ONDANSETRON HCL 4 MG TABLET PO PRN (09:00)
[2022-11-16] MEDS ORDERED: CIPROFLOXACIN HCL 250 MG TABLET PO SCH (09:00)
[2022-11-16] MEDS: CIPROFLOXACIN HCL 500 MG TABLET PO SCH ×2 (09:34→16:19)
[2022-11-16 20:13] VITALS: BP 144/80
[2022-11-17 08:08] VITALS: BP 144/80
[2022-11-17] MEDS: CIPROFLOXACIN HCL 500 MG TABLET PO SCH ×2 (08:10→17:13)
[2022-11-17] MEDS: LORazepam 2 MG TABLET PO PRN ×2 (08:10→17:13)
[2022-11-17] MEDS: HALOPERIDOL 5 MG TABLET PO PRN (17:13)
[2022-11-17 20:09] VITALS: BP 129/72
[2022-11-17] MEDS: ZOLPIDEM TARTRATE 10 MG TABLET PO PRN (20:35)
[2022-11-17] MEDS ORDERED: OLANZapine 10 MG TABLET PO SCH (21:00)
[2022-11-18] MEDS: CIPROFLOXACIN HCL 500 MG TABLET PO SCH (08:01)
[2022-11-18] MEDS ORDERED: BuPROPion HCL XL 150 MG ER TABLET PO SCH (09:00)
[2022-11-18 09:40] VITALS: BP 107/61
[2022-11-18] MEDS ORDERED: CIPR500T10 PO (10:02)
[2022-11-18 11:07] LABS: HEPATITIS C AB (EIA) Non Reactive (Non Reactive)
== END 2022-11-18 12:00 | disposition home or self-care (01) | DRG 750 ==
LOC: EMS 12:41 → B3A 23:34
PROVIDERS: ADMIT Psychiatry & Neurology Psychiatry; ATTEND Psychiatry & Neurology Psychiatry
DX: F25.1 Schizoaffective disorder, depressive type (principal); R45.851 Suicidal ideations; E66.9 Obesity, unspecified; F32.A Depression, unspecified; F10.129 Alcohol abuse with intoxication, unspecified; Z68.38 Body mass index [BMI] 38.0-38.9, adult; F43.10 Post-traumatic stress disorder, unspecified; I10 Essential (primary) hypertension; J44.9 Chronic obstructive pulmonary disease, unspecified; M16.10 Unilateral primary osteoarthritis, unspecified hip; F19.10 Other psychoactive substance abuse, uncomplicated; K21.9 Gastro-esophageal reflux disease without esophagitis; G47.00 Insomnia, unspecified; K59.00 Constipation, unspecified; F12.90 Cannabis use, unspecified, uncomplicated; Y90.9 Presence of alcohol in blood, level not specified; Z87.891 Personal history of nicotine dependence
CPT/HCPCS: 80053; 80307; 81001; 85025; 86803; 87086; 87186; 87340; 99285; G0480

== ENCOUNTER 2022-12-13 12:29 | Inpatient (IN) | payer MEDICAID ==
[~2022-12-13] VITALS: Ht 177.8 cm; Wt 115.7 kg
[~2022-12-13 12:29] MED LIST changes: +CIPR500T10 PO; -MELA5TAB40 PO; -MIRT-89 PO; -NALT50TA PO; -TRAZ-257 PO
[2022-12-13 13:11] LABS: BASOPHILS % (AUTO) 0.9 % (0.0-2.0); EOSINOPHILS % (AUTO) 1.2 % (1.0-6.0); HEMATOCRIT 45.6 % (41-53); HEMOGLOBIN 15.6 g/dL (13.5-17.5); LYMPHOCYTES # (AUTO) 2.5 K/uL (1.0-4.8); LYMPHOCYTES % (AUTO) 25.7 % (22.0-44.0); MEAN CORPUSCULAR HGB CONC 34.3 G/dL (31.0-37.0); MEAN CORPUSCULAR VOLUME 87 fL (80-100); MONOCYTES # (AUTO) 0.7 K/uL (0.1-1.0); MONOCYTES % (AUTO) 7.7 % (2.0-9.0); NEUTROPHILS # (AUTO) 6.3 K/uL (1.8-7.7); NEUTROPHILS % (AUTO) 64.5 % (40.0-70.0); PLATELET COUNT (AUTO) 189 K/uL (150-450); RED BLOOD CELL COUNT(AUTO) 5.22 MIL/uL (4.50-5.90)
[2022-12-13 13:20] LABS: ANION GAP 10 mmol/L (8-16); CALCIUM, TOTAL 8.5 mg/dL (8.8-10.5); CARBON DIOXIDE 24 mmol/L (22-29); CHLORIDE 100 mmol/L (98-107); CREATININE 1.21 mg/dL (0.60-1.30); GLOMERULAR FILTR. RATE CALC > 60 mL/min (>60); GLUCOSE,RANDOM 114 mg/dL (70-110); POTASSIUM 3.5 mmol/L (3.5-5.1); SODIUM SERUM 134 mmol/L (136-145)
[2022-12-13 13:26] LABS: ALANINE AMINOTRANSFERASE 28 U/L (12-78); ALBUMIN 3.3 g/dL (3.4-5.0); ALKALINE PHOSPHATASE 90 U/L (46-116); BILIRUBIN,TOTAL 0.3 mg/dL (0.1-1.0)
[2022-12-13 14:13] LABS: ASPARTATE AMINOTRANSFERASE 21 U/L (15-37)
[2022-12-13 14:13] LABS: COVID AG,FIA SOURCE NASAL SWAB
[2022-12-13] MEDS ORDERED: HALOPERIDOL 5 MG TABLET PO PRN (14:30)
[2022-12-13 14:31] LABS: AMPHET/METH SCREEN,URINE NEGATIVE (NEGATIVE); BARBITURATE SCREEN, URINE NEGATIVE (NEGATIVE); BENZODIAZEPINES SCREEN,URINE NEGATIVE (NEGATIVE); CANNABINOID SCREEN,URINE NEGATIVE (NEGATIVE); COCAINE SCREEN,URINE NEGATIVE (NEGATIVE); METHADONE SCREEN, URINE NEGATIVE (NEGATIVE); OPIATE SCREEN,URINE NEGATIVE (NEGATIVE); PHENCYCLIDINE SCREEN,URINE NEGATIVE (NEGATIVE)
[2022-12-13 14:36] LABS: APPEARANCE,URINE CLEAR (CLEAR); BILIRUBIN,URINE NEGATIVE (NEGATIVE); GLUCOSE, URINE (UA) NEGATIVE (NEGATIVE); KETONES,URINE NEGATIVE (NEGATIVE); LEUKOCYTE ESTERASE ,URINE SMALL (NEGATIVE); NITRATE,URINE NEGATIVE (NEGATIVE); OCCULT BLOOD,URINE NEGATIVE (NEGATIVE); PH,URINE 6.5 (5.0-8.0); PROTEIN,URINE NEGATIVE (NEGATIVE); SPECIFIC GRAVITIY, URINE 1.005 (1.003-1.030); UROBILINOGEN,URINE <=1.0 mg/dL (<=1.0)
[2022-12-13 14:46] LABS: BACTERIA,URINE None Seen /HPF (None Seen); RBC,URINE None Seen /HPF (0-2)
[2022-12-13] MEDS: LORazepam 2 MG TABLET PO PRN (15:44)
[2022-12-13] MEDS ORDERED: OLANZapine 5 MG TABLET PO ONE (16:45)
[2022-12-13] MEDS ORDERED: BuPROPion HCL XL 150 MG ER TABLET PO ONE (16:45)
[2022-12-13] MEDS ORDERED: LORazepam 2 MG TABLET PO ONE (16:45)
[2022-12-14] MEDS ORDERED: -PHARMACY VACCINE NOTE- MISC ONE (11:45)
[2022-12-14 14:09] VITALS: BP 141/92; PULSE 81; RESP 17; TEMP 97.7; O2SAT 96
[2022-12-14] MEDS: LORazepam 2 MG TABLET PO PRN (14:13)
[2022-12-14] MEDS ORDERED: ALBUTEROL SULFATE HFA 90 MCG/PUFF 8 GM INHALER IH PRN (16:45)
[2022-12-14] MEDS ORDERED: BACITRACIN 28 GM OINTMENT TP PRN (16:45)
[2022-12-14] MEDS ORDERED: ACETAMINOPHEN 325 MG TABLET PO PRN (16:45)
[2022-12-14] MEDS ORDERED: DOCUSATE SODIUM 100 MG CAPSULE PO PRN (16:45)
[2022-12-14] MEDS ORDERED: LOPERAMIDE HCL 2 MG CAPSULE PO PRN (16:45)
[2022-12-14] MEDS ORDERED: ONDANSETRON HCL 4 MG TABLET PO PRN (16:45)
[2022-12-14] MEDS ORDERED: IBUPROFEN 600 MG TABLET PO PRN (16:45)
[2022-12-14] MEDS ORDERED: CloNIDine HCL 0.1 MG TABLET PO PRN (16:45)
[2022-12-14] MEDS ORDERED: PETROLATUM,WHITE 28 GM JELLY TP PRN (16:45)
[2022-12-14] MEDS ORDERED: MAGNESIUM HYDROXIDE SUSPENSION 30 ML UDCUP PO PRN (16:45)
[2022-12-14] MEDS ORDERED: MAG HYDROX/AL HYDROX/SIMETH ES 30 ML SUSPENSION UDCUP PO PRN (16:45)
[2022-12-14] MEDS ORDERED: OMEPRAZOLE 20 MG CAPSULE PO PRN (16:45)
[2022-12-14 20:21] VITALS: BP 128/91; PULSE 80; TEMP 97.7
[2022-12-14] MEDS: ZOLPIDEM TARTRATE 10 MG TABLET PO PRN (21:47)
[2022-12-15 09:11] VITALS: BP 131/90; PULSE 82; RESP 17; TEMP 98; O2SAT 96
[2022-12-15] MEDS: LORazepam 2 MG TABLET PO PRN ×2 (12:06→17:46)
[2022-12-15 20:40] VITALS: BP 113/70; PULSE 65; RESP 19; TEMP 97.9; O2SAT 96
[2022-12-15] MEDS: OLANZapine 10 MG TABLET PO SCH (21:01)
[2022-12-15] MEDS: ZOLPIDEM TARTRATE 10 MG TABLET PO PRN (21:01)
[2022-12-16 08:27] VITALS: BP 137/66; PULSE 69; RESP 16; TEMP 98.4; O2SAT 95
[2022-12-16] MEDS: BuPROPion HCL XL 150 MG ER TABLET PO SCH (08:54)
[2022-12-16] MEDS: OLANZapine 10 MG TABLET PO SCH (20:30)
[2022-12-16 20:56] VITALS: BP 135/82; PULSE 91; RESP 18; TEMP 97.6; O2SAT 100
[2022-12-16] MEDS: ZOLPIDEM TARTRATE 10 MG TABLET PO PRN (21:07)
[2022-12-17 02:45] VITALS: BP 134/88; PULSE 84; RESP 18; TEMP 98.1; O2SAT 99
[2022-12-17] MEDS: LORazepam 2 MG TABLET PO PRN (02:47)
[2022-12-17] MEDS: BuPROPion HCL XL 150 MG ER TABLET PO SCH (08:36)
[2022-12-17 09:00] VITALS: BP 97/53; PULSE 82; RESP 16; TEMP 97.9; O2SAT 96
[2022-12-17 12:51] VITALS: BP 148/93; PULSE 100; RESP 16; TEMP 97.9; O2SAT 95
[2022-12-17] MEDS: MUPIROCIN CALCIUM 2% 22 GM OINTMENT NASAL SCH (17:25)
[2022-12-17] MEDS: OLANZapine 10 MG TABLET PO SCH (21:07)
[2022-12-17 22:18] VITALS: BP 125/89; PULSE 81; RESP 17; TEMP 97.3; O2SAT 97
[2022-12-18 08:16] VITALS: BP 120/66; PULSE 68; RESP 18; TEMP 97.9; O2SAT 96
[2022-12-18] MEDS: MUPIROCIN CALCIUM 2% 22 GM OINTMENT NASAL SCH (09:25)
[2022-12-18] MEDS: BuPROPion HCL XL 150 MG ER TABLET PO SCH (09:25)
[2022-12-18] MEDS ORDERED: BUPR-317 PO (11:02)
[2022-12-18] MEDS ORDERED: OLAN10TA74 PO (11:03)
[2022-12-18] MEDS ORDERED: BUPR-50 PO (11:03)
== END 2022-12-18 14:50 | disposition home or self-care (01) | DRG 750 ==
LOC: EMS 12:43 → B2S 12-14 06:45
PROVIDERS: ADMIT Psychiatry & Neurology Psychiatry; ATTEND Psychiatry & Neurology Psychiatry
DX: F25.1 Schizoaffective disorder, depressive type (principal); F10.129 Alcohol abuse with intoxication, unspecified; F43.10 Post-traumatic stress disorder, unspecified; Z20.822 Contact with and (suspected) exposure to COVID-19; G47.00 Insomnia, unspecified; I10 Essential (primary) hypertension; J44.9 Chronic obstructive pulmonary disease, unspecified; K21.9 Gastro-esophageal reflux disease without esophagitis; M19.90 Unspecified osteoarthritis, unspecified site; F17.210 Nicotine dependence, cigarettes, uncomplicated; Z96.649 Presence of unspecified artificial hip joint; K59.00 Constipation, unspecified; F12.90 Cannabis use, unspecified, uncomplicated; F19.10 Other psychoactive substance abuse, uncomplicated; G89.29 Other chronic pain; Z88.6 Allergy status to analgesic agent
CPT/HCPCS: 80053; 80307; 81001; 85025; 87081; 99285; G0480

== ENCOUNTER 2022-12-24 13:47 | Inpatient (IN) | payer MEDICAID ==
[~2022-12-24] VITALS: Ht 177.8 cm; Wt 115.9 kg
[~2022-12-24 13:47] MED LIST changes: -BUPR-49 PO; +BUPR-50 PO; -CIPR500T10 PO; -OLAN10 PO; +OLAN10TA74 PO
[2022-12-24 15:41] LABS: BASOPHILS % (AUTO) 0.8 % (0.0-2.0); EOSINOPHILS % (AUTO) 2.5 % (1.0-6.0); HEMATOCRIT 46.1 % (41-53); HEMOGLOBIN 16.2 g/dL (13.5-17.5); LYMPHOCYTES # (AUTO) 2.5 K/uL (1.0-4.8); LYMPHOCYTES % (AUTO) 28.4 % (22.0-44.0); MEAN CORPUSCULAR HEMOGLOBIN 30.6 pg (26.0-34.0); MEAN CORPUSCULAR HGB CONC 35.1 G/dL (31.0-37.0); MEAN CORPUSCULAR VOLUME 87 fL (80-100); MONOCYTES # (AUTO) 0.8 K/uL (0.1-1.0); MONOCYTES % (AUTO) 9.1 % (2.0-9.0); NEUTROPHILS # (AUTO) 5.1 K/uL (1.8-7.7); NEUTROPHILS % (AUTO) 59.2 % (40.0-70.0); PLATELET COUNT (AUTO) 219 K/uL (150-450); RED BLOOD CELL COUNT(AUTO) 5.28 MIL/uL (4.50-5.90); RED CELL DISTRIBUTION WIDTH 13.5 % (11.5-14.5)
[2022-12-24 15:47] LABS: COVID AG,FIA SOURCE NASAL SWAB
[2022-12-24 15:54] LABS: CALCIUM, TOTAL 8.7 mg/dL (8.8-10.5); CREATININE 1.25 mg/dL (0.60-1.30); POTASSIUM 3.8 mmol/L (3.5-5.1)
[2022-12-24 15:59] LABS: ALBUMIN 3.6 g/dL (3.4-5.0); BILIRUBIN,TOTAL 0.3 mg/dL (0.1-1.0); TOTAL PROTEIN, SERUM 7.5 g/dL (6.4-8.2)
[2022-12-24 16:54] LABS: APPEARANCE,URINE CLEAR (CLEAR); BILIRUBIN,URINE NEGATIVE (NEGATIVE); GLUCOSE, URINE (UA) NEGATIVE (NEGATIVE); KETONES,URINE NEGATIVE (NEGATIVE); LEUKOCYTE ESTERASE ,URINE MODERATE (NEGATIVE); NITRATE,URINE NEGATIVE (NEGATIVE); OCCULT BLOOD,URINE NEGATIVE (NEGATIVE); PH,URINE 5.5 (5.0-8.0); PROTEIN,URINE NEGATIVE (NEGATIVE); SPECIFIC GRAVITIY, URINE 1.017 (1.003-1.030); UROBILINOGEN,URINE <=1.0 mg/dL (<=1.0)
[2022-12-24 16:58] LABS: AMPHET/METH SCREEN,URINE NEGATIVE (NEGATIVE); BARBITURATE SCREEN, URINE NEGATIVE (NEGATIVE); BENZODIAZEPINES SCREEN,URINE NEGATIVE (NEGATIVE); CANNABINOID SCREEN,URINE NEGATIVE (NEGATIVE); COCAINE SCREEN,URINE NEGATIVE (NEGATIVE); METHADONE SCREEN, URINE NEGATIVE (NEGATIVE); OPIATE SCREEN,URINE NEGATIVE (NEGATIVE); PHENCYCLIDINE SCREEN,URINE NEGATIVE (NEGATIVE)
[2022-12-24 17:08] LABS: BACTERIA,URINE None Seen /HPF (None Seen); RBC,URINE None Seen /HPF (0-2); SQUAMOUS EPITHELIAL CELL,UR Few /LPF (None Seen); WBC,URINE 0-2 /HPF (0-5)
[2022-12-24 17:24] VITALS: BP 142/85; PULSE 68; RESP 20; TEMP 97.6; O2SAT 95
[2022-12-24 17:41] VITALS: BP 142/85; PULSE 68; RESP 20; TEMP 97.6
[2022-12-24] MEDS: LORazepam 2 MG TABLET PO PRN (18:10)
[2022-12-24] MEDS ORDERED: DOCUSATE SODIUM 100 MG CAPSULE PO PRN (20:30)
[2022-12-24] MEDS ORDERED: PETROLATUM,WHITE 28 GM JELLY TP PRN (20:30)
[2022-12-24] MEDS ORDERED: ONDANSETRON HCL 4 MG TABLET PO PRN (20:30)
[2022-12-24] MEDS ORDERED: CloNIDine HCL 0.1 MG TABLET PO PRN (20:30)
[2022-12-24] MEDS ORDERED: IBUPROFEN 600 MG TABLET PO PRN (20:30)
[2022-12-24] MEDS ORDERED: OMEPRAZOLE 20 MG CAPSULE PO PRN (20:30)
[2022-12-24] MEDS: OLANZapine 10 MG TABLET PO SCH (20:30)
[2022-12-24] MEDS ORDERED: MAG HYDROX/AL HYDROX/SIMETH ES 30 ML SUSPENSION UDCUP PO PRN (20:30)
[2022-12-24] MEDS ORDERED: BACITRACIN 28 GM OINTMENT TP PRN (20:30)
[2022-12-24] MEDS ORDERED: BENZOCAINE/MENTHOL LOZENGE PO PRN (20:30)
[2022-12-24] MEDS ORDERED: ALBUTEROL SULFATE HFA 90 MCG/PUFF 8 GM INHALER IH PRN (20:30)
[2022-12-24] MEDS ORDERED: LOPERAMIDE HCL 2 MG CAPSULE PO PRN (20:30)
[2022-12-24] MEDS ORDERED: MAGNESIUM HYDROXIDE SUSPENSION 30 ML UDCUP PO PRN (20:30)
[2022-12-24] MEDS ORDERED: ACETAMINOPHEN 325 MG TABLET PO PRN (20:30)
[2022-12-25] MEDS: ZOLPIDEM TARTRATE 10 MG TABLET PO PRN ×2 (00:02→21:00)
[2022-12-25 08:00] VITALS: RESP 19
[2022-12-25 08:15] LABS: HEMOGLOBIN A1C 5.1 % (3.8-5.6)
[2022-12-25 08:22] LABS: CHOL/HDL RATIO 4.7 (4.2-7.3)
[2022-12-25] MEDS: BuPROPion HCL XL 150 MG ER TABLET PO SCH (09:40)
[2022-12-25] MEDS: LORazepam 2 MG TABLET PO PRN (11:40)
[2022-12-25] MEDS: OLANZapine 10 MG TABLET PO SCH (20:34)
[2022-12-25 21:14] VITALS: BP 140/80; PULSE 68; RESP 18; TEMP 98.1; O2SAT 95
[2022-12-26] MEDS: BuPROPion HCL XL 150 MG ER TABLET PO SCH (08:12)
[2022-12-26 09:13] VITALS: BP 132/60; PULSE 81; RESP 18; TEMP 97.8; O2SAT 98
[2022-12-26 20:47] VITALS: BP 141/76; PULSE 72; RESP 18; TEMP 97.9; O2SAT 97
[2022-12-26] MEDS: OLANZapine 10 MG TABLET PO SCH (20:59)
[2022-12-26] MEDS: ATORVASTATIN CALCIUM 40 MG TABLET PO SCH (20:59)
[2022-12-26] MEDS: ZOLPIDEM TARTRATE 10 MG TABLET PO PRN (21:25)
[2022-12-27 08:00] VITALS: BP 109/50; PULSE 58; RESP 19; TEMP 98.3; O2SAT 99
[2022-12-27] MEDS: BuPROPion HCL XL 150 MG ER TABLET PO SCH (09:20)
[2022-12-27] MEDS: LORazepam 2 MG TABLET PO PRN (12:10)
[2022-12-27] MEDS: HALOPERIDOL 5 MG TABLET PO PRN (12:10)
[2022-12-27 20:51] VITALS: BP 120/89; PULSE 80; RESP 18; TEMP 97.5; O2SAT 95
[2022-12-27] MEDS: ATORVASTATIN CALCIUM 40 MG TABLET PO SCH (20:56)
[2022-12-27] MEDS: OLANZapine 10 MG TABLET PO SCH (20:56)
[2022-12-27] MEDS: ZOLPIDEM TARTRATE 10 MG TABLET PO PRN (21:56)
[2022-12-28] MEDS: BuPROPion HCL XL 150 MG ER TABLET PO SCH (08:19)
[2022-12-28 08:57] VITALS: BP 91/57; PULSE 62; RESP 18; TEMP 97.2; O2SAT 97
[2022-12-28] MEDS: LORazepam 2 MG TABLET PO PRN (10:51)
[2022-12-28] MEDS: HALOPERIDOL 5 MG TABLET PO PRN (10:53)
[2022-12-28] MEDS: OLANZapine 10 MG TABLET PO SCH (20:16)
[2022-12-28] MEDS: ATORVASTATIN CALCIUM 40 MG TABLET PO SCH (20:16)
[2022-12-28 20:31] VITALS: BP 136/99; PULSE 76; RESP 18; TEMP 97; O2SAT 99
[2022-12-28] MEDS: ZOLPIDEM TARTRATE 10 MG TABLET PO PRN (21:36)
[2022-12-29] MEDS: BuPROPion HCL XL 150 MG ER TABLET PO SCH (08:26)
[2022-12-29 09:00] VITALS: BP 132/75; PULSE 76; RESP 18; TEMP 97.6
[2022-12-29] MEDS: ATORVASTATIN CALCIUM 40 MG TABLET PO SCH (20:49)
[2022-12-29] MEDS: OLANZapine 10 MG TABLET PO SCH (20:49)
[2022-12-29] MEDS: ZOLPIDEM TARTRATE 10 MG TABLET PO PRN (21:09)
[2022-12-29 21:42] VITALS: BP 131/81; PULSE 78; RESP 19; TEMP 98.1; O2SAT 98
[2022-12-30 08:07] VITALS: BP 135/84; PULSE 73; RESP 18; TEMP 97.1; O2SAT 98
[2022-12-30] MEDS: BuPROPion HCL XL 150 MG ER TABLET PO SCH (09:41)
[2022-12-30] MEDS ORDERED: ATOR40TA28 PO (12:14)
[2022-12-30] MEDS: LORazepam 2 MG TABLET PO PRN (12:31)
[2022-12-30] MEDS: HALOPERIDOL 5 MG TABLET PO PRN (12:32)
== END 2022-12-30 14:45 | disposition home or self-care (01) | DRG 750 ==
LOC: EMS 13:50 → 3EI 16:21
PROVIDERS: ADMIT Psychiatry & Neurology Psychiatry; ATTEND Psychiatry & Neurology Psychiatry
DX: F25.1 Schizoaffective disorder, depressive type (principal); E78.00 Pure hypercholesterolemia, unspecified; Z20.822 Contact with and (suspected) exposure to COVID-19; F10.10 Alcohol abuse, uncomplicated; F43.10 Post-traumatic stress disorder, unspecified; I10 Essential (primary) hypertension; J44.9 Chronic obstructive pulmonary disease, unspecified; F17.210 Nicotine dependence, cigarettes, uncomplicated; Z96.642 Presence of left artificial hip joint; G89.29 Other chronic pain; G47.00 Insomnia, unspecified; K59.00 Constipation, unspecified; F12.90 Cannabis use, unspecified, uncomplicated; F19.10 Other psychoactive substance abuse, uncomplicated
CPT/HCPCS: 80053; 80061; 80307; 81001; 83036; 85025; 87081; 99285; G0480

== ENCOUNTER 2023-01-06 12:36 | Inpatient (IN) | payer SELFPAY ==
[~2023-01-06] VITALS: Ht 177.8 cm; Wt 121.3 kg
[~2023-01-06 12:36] MED LIST changes: +ATOR40TA28 PO
[2023-01-06 13:31] LABS: BASOPHILS % (AUTO) 0.6 % (0.0-2.0); EOSINOPHILS % (AUTO) 1.5 % (1.0-6.0); HEMATOCRIT 46.2 % (41-53); LYMPHOCYTES # (AUTO) 2.7 K/uL (1.0-4.8); LYMPHOCYTES % (AUTO) 25.1 % (22.0-44.0); MEAN CORPUSCULAR HEMOGLOBIN 29.8 pg (26.0-34.0); MEAN CORPUSCULAR HGB CONC 34.5 G/dL (31.0-37.0); MEAN CORPUSCULAR VOLUME 86 fL (80-100); MONOCYTES # (AUTO) 0.8 K/uL (0.1-1.0); MONOCYTES % (AUTO) 7.6 % (2.0-9.0); NEUTROPHILS # (AUTO) 7.1 K/uL (1.8-7.7); NEUTROPHILS % (AUTO) 65.2 % (40.0-70.0); PLATELET COUNT (AUTO) 214 K/uL (150-450); RED BLOOD CELL COUNT(AUTO) 5.35 MIL/uL (4.50-5.90); RED CELL DISTRIBUTION WIDTH 13.4 % (11.5-14.5)
[2023-01-06 13:39] LABS: ANION GAP 9 mmol/L (8-16); CALCIUM, TOTAL 9.2 mg/dL (8.8-10.5); CARBON DIOXIDE 23 mmol/L (22-29); CHLORIDE 97 mmol/L (98-107); CREATININE 1.11 mg/dL (0.60-1.30); GLOMERULAR FILTR. RATE CALC > 60 mL/min (>60); GLUCOSE,RANDOM 115 mg/dL (70-110); POTASSIUM 3.3 mmol/L (3.5-5.1); SODIUM SERUM 129 mmol/L (136-145)
[2023-01-06 13:46] LABS: ALANINE AMINOTRANSFERASE 27 U/L (12-78); ALBUMIN 3.6 g/dL (3.4-5.0); ALKALINE PHOSPHATASE 103 U/L (46-116); ASPARTATE AMINOTRANSFERASE 21 U/L (15-37); BILIRUBIN,TOTAL 0.3 mg/dL (0.1-1.0); TOTAL PROTEIN, SERUM 7.3 g/dL (6.4-8.2)
[2023-01-06] MEDS ORDERED: HALOPERIDOL 5 MG TABLET PO PRN (14:00)
[2023-01-06 14:20] LABS: AMPHET/METH SCREEN,URINE NEGATIVE (NEGATIVE); BARBITURATE SCREEN, URINE NEGATIVE (NEGATIVE); BENZODIAZEPINES SCREEN,URINE NEGATIVE (NEGATIVE); CANNABINOID SCREEN,URINE NEGATIVE (NEGATIVE); COCAINE SCREEN,URINE NEGATIVE (NEGATIVE); METHADONE SCREEN, URINE NEGATIVE (NEGATIVE); OPIATE SCREEN,URINE NEGATIVE (NEGATIVE); PHENCYCLIDINE SCREEN,URINE NEGATIVE (NEGATIVE)
[2023-01-06] MEDS ORDERED: IBUPROFEN 600 MG TABLET PO PRN (18:15)
[2023-01-06] MEDS ORDERED: BACITRACIN 28 GM OINTMENT TP PRN (18:15)
[2023-01-06] MEDS ORDERED: ONDANSETRON HCL 4 MG TABLET PO PRN (18:15)
[2023-01-06] MEDS ORDERED: LOPERAMIDE HCL 2 MG CAPSULE PO PRN (18:15)
[2023-01-06] MEDS ORDERED: ALBUTEROL SULFATE HFA 90 MCG/PUFF 8 GM INHALER IH PRN (18:15)
[2023-01-06] MEDS ORDERED: BENZOCAINE/MENTHOL LOZENGE PO PRN (18:15)
[2023-01-06] MEDS ORDERED: MAGNESIUM HYDROXIDE SUSPENSION 30 ML UDCUP PO PRN (18:15)
[2023-01-06] MEDS ORDERED: DOCUSATE SODIUM 100 MG CAPSULE PO PRN (18:15)
[2023-01-06] MEDS ORDERED: MAG HYDROX/AL HYDROX/SIMETH ES 30 ML SUSPENSION UDCUP PO PRN (18:15)
[2023-01-06] MEDS ORDERED: CloNIDine HCL 0.1 MG TABLET PO PRN (18:15)
[2023-01-06] MEDS ORDERED: OMEPRAZOLE 20 MG CAPSULE PO PRN (18:15)
[2023-01-06] MEDS ORDERED: PETROLATUM,WHITE 28 GM JELLY TP PRN (18:15)
[2023-01-06] MEDS ORDERED: ACETAMINOPHEN 325 MG TABLET PO PRN (18:15)
[2023-01-06] MEDS: LORazepam 2 MG TABLET PO PRN (19:14)
[2023-01-06 20:17] LABS: COVID AG,FIA SOURCE NASAL SWAB
[2023-01-06] MEDS: ZOLPIDEM TARTRATE 10 MG TABLET PO PRN (21:26)
[2023-01-06] MEDS: ATORVASTATIN CALCIUM 40 MG TABLET PO SCH (21:26)
[2023-01-06 21:33] LABS: APPEARANCE,URINE CLEAR (CLEAR); BILIRUBIN,URINE NEGATIVE (NEGATIVE); GLUCOSE, URINE (UA) NEGATIVE (NEGATIVE); KETONES,URINE NEGATIVE (NEGATIVE); LEUKOCYTE ESTERASE ,URINE MODERATE (NEGATIVE); NITRATE,URINE NEGATIVE (NEGATIVE); OCCULT BLOOD,URINE NEGATIVE (NEGATIVE); PH,URINE 5.5 (5.0-8.0); PROTEIN,URINE NEGATIVE (NEGATIVE); SPECIFIC GRAVITIY, URINE 1.005 (1.003-1.030); UROBILINOGEN,URINE <=1.0 mg/dL (<=1.0)
[2023-01-06 21:47] LABS: RBC,URINE None Seen /HPF (0-2)
[2023-01-06 21:48] LABS: BACTERIA,URINE Few /HPF (None Seen); SQUAMOUS EPITHELIAL CELL,UR None Seen /LPF (None Seen)
[2023-01-06 23:35] VITALS: TEMP 98.3
[2023-01-06 23:44] VITALS: BP 134/62; PULSE 74; RESP 18; TEMP 98.3; O2SAT 96
[2023-01-07 08:53] VITALS: BP 137/91; PULSE 84; RESP 19; TEMP 97.9; O2SAT 94
[2023-01-07] MEDS: LORazepam 2 MG TABLET PO PRN ×2 (11:30→21:25)
[2023-01-07] MEDS: BuPROPion HCL XL 150 MG ER TABLET PO SCH (15:35)
[2023-01-07] MEDS: ATORVASTATIN CALCIUM 40 MG TABLET PO SCH (21:25)
[2023-01-07] MEDS: OLANZapine 10 MG TABLET PO SCH (21:25)
[2023-01-07 21:59] VITALS: BP 141/80; PULSE 74; RESP 18; TEMP 97.6; O2SAT 97
[2023-01-08] MEDS: BuPROPion HCL XL 150 MG ER TABLET PO SCH (08:20)
[2023-01-08 10:02] VITALS: BP 141/87; PULSE 76; RESP 18; TEMP 98.7; O2SAT 97
[2023-01-08 20:45] VITALS: BP 132/83; PULSE 77; RESP 18; TEMP 97.6; O2SAT 96
[2023-01-08] MEDS: OLANZapine 10 MG TABLET PO SCH (21:00)
[2023-01-08] MEDS: ATORVASTATIN CALCIUM 40 MG TABLET PO SCH (21:00)
[2023-01-08] MEDS: ZOLPIDEM TARTRATE 10 MG TABLET PO PRN (22:10)
[2023-01-09 08:22] VITALS: BP 114/88; PULSE 60; RESP 19; TEMP 97.9; O2SAT 94
[2023-01-09] MEDS: BuPROPion HCL XL 150 MG ER TABLET PO SCH (08:53)
[2023-01-09] MEDS: LORazepam 2 MG TABLET PO PRN (12:19)
[2023-01-09] MEDS: ATORVASTATIN CALCIUM 40 MG TABLET PO SCH (21:28)
[2023-01-09] MEDS: ZOLPIDEM TARTRATE 10 MG TABLET PO PRN (21:28)
[2023-01-09] MEDS: OLANZapine 10 MG TABLET PO SCH (21:28)
[2023-01-09 23:52] VITALS: BP 137/89; PULSE 80; RESP 18; TEMP 97.5; O2SAT 95
[2023-01-10 08:00] VITALS: BP 140/55; PULSE 68; RESP 18; TEMP 98.9; O2SAT 93
[2023-01-10] MEDS: BuPROPion HCL XL 150 MG ER TABLET PO SCH (09:20)
[2023-01-10] MEDS: ZOLPIDEM TARTRATE 10 MG TABLET PO PRN (21:33)
[2023-01-10] MEDS: OLANZapine 10 MG TABLET PO SCH (21:33)
[2023-01-10] MEDS: ATORVASTATIN CALCIUM 40 MG TABLET PO SCH (21:33)
[2023-01-10 22:27] VITALS: BP 122/76; PULSE 64; RESP 18; TEMP 96.5; O2SAT 95
[2023-01-11 08:00] VITALS: BP 150/90; PULSE 90; RESP 18; TEMP 97.8; O2SAT 96
[2023-01-11] MEDS: BuPROPion HCL XL 150 MG ER TABLET PO SCH (09:10)
[2023-01-11] MEDS: LORazepam 2 MG TABLET PO PRN (10:56)
[2023-01-11 20:53] VITALS: BP 128/71; PULSE 72; RESP 18; TEMP 97.8; O2SAT 97
[2023-01-11] MEDS: OLANZapine 10 MG TABLET PO SCH (21:26)
[2023-01-11] MEDS: ZOLPIDEM TARTRATE 10 MG TABLET PO PRN (21:26)
[2023-01-11] MEDS: ATORVASTATIN CALCIUM 40 MG TABLET PO SCH (21:26)
[2023-01-12] MEDS: BuPROPion HCL XL 150 MG ER TABLET PO SCH (08:21)
[2023-01-12] MEDS: LORazepam 2 MG TABLET PO PRN (12:29)
[2023-01-12] MEDS: ATORVASTATIN CALCIUM 40 MG TABLET PO SCH (20:53)
[2023-01-12] MEDS: ZOLPIDEM TARTRATE 10 MG TABLET PO PRN (20:53)
[2023-01-12] MEDS: OLANZapine 10 MG TABLET PO SCH (20:53)
[2023-01-12 21:05] VITALS: BP 168/86; PULSE 89; RESP 18; TEMP 97.8; O2SAT 95
[2023-01-12 21:17] LABS: COVID AG,FIA SOURCE NASAL SWAB
[2023-01-13] MEDS: BuPROPion HCL XL 150 MG ER TABLET PO SCH (08:57)
[2023-01-13 09:10] VITALS: BP 120/67; PULSE 60; RESP 18; TEMP 98; O2SAT 96
== END 2023-01-13 13:45 | disposition home or self-care (01) | DRG 885 ==
LOC: EMS 12:37 → UNDOADMIN 15:28 → B2S 15:28 → 3EI 16:54
PROVIDERS: ADMIT Psychiatry & Neurology Psychiatry; ATTEND Psychiatry & Neurology Psychiatry
DX: F25.9 Schizoaffective disorder, unspecified (principal); R45.851 Suicidal ideations; Z20.822 Contact with and (suspected) exposure to COVID-19; E78.00 Pure hypercholesterolemia, unspecified; F10.10 Alcohol abuse, uncomplicated; F43.10 Post-traumatic stress disorder, unspecified; I10 Essential (primary) hypertension; J44.9 Chronic obstructive pulmonary disease, unspecified; F17.210 Nicotine dependence, cigarettes, uncomplicated; Z96.642 Presence of left artificial hip joint; K21.9 Gastro-esophageal reflux disease without esophagitis; F41.9 Anxiety disorder, unspecified; M16.10 Unilateral primary osteoarthritis, unspecified hip; F19.10 Other psychoactive substance abuse, uncomplicated; G47.00 Insomnia, unspecified; K59.00 Constipation, unspecified; F12.90 Cannabis use, unspecified, uncomplicated
CPT/HCPCS: 80053; 80307; 81001; 85025; 87081; 87086; 87186; 99285; G0480

== ENCOUNTER 2023-02-07 14:49 | Inpatient (IN) | payer SELFPAY ==
[~2023-02-07] VITALS: Ht 177.8 cm; Wt 123.4 kg
[~2023-02-07 14:49] MED LIST changes: +BUPR-49 PO
[2023-02-07] MEDS ORDERED: ASPI-1444 PO (14:54)
[2023-02-07 16:08] LABS: BASOPHILS % (AUTO) 0.5 % (0.0-2.0); EOSINOPHILS % (AUTO) 1.7 % (1.0-6.0); HEMATOCRIT 44.8 % (41-53); HEMOGLOBIN 15.7 g/dL (13.5-17.5); LYMPHOCYTES # (AUTO) 2.4 K/uL (1.0-4.8); LYMPHOCYTES % (AUTO) 26.7 % (22.0-44.0); MEAN CORPUSCULAR HEMOGLOBIN 30.4 pg (26.0-34.0); MEAN CORPUSCULAR VOLUME 87 fL (80-100); MONOCYTES # (AUTO) 0.7 K/uL (0.1-1.0); MONOCYTES % (AUTO) 7.2 % (2.0-9.0); NEUTROPHILS # (AUTO) 5.8 K/uL (1.8-7.7); NEUTROPHILS % (AUTO) 63.9 % (40.0-70.0); PLATELET COUNT (AUTO) 199 K/uL (150-450); RED BLOOD CELL COUNT(AUTO) 5.17 MIL/uL (4.50-5.90); RED CELL DISTRIBUTION WIDTH 13.5 % (11.5-14.5)
[2023-02-07 16:14] LABS: AMPHET/METH SCREEN,URINE NEGATIVE (NEGATIVE); BARBITURATE SCREEN, URINE NEGATIVE (NEGATIVE); BENZODIAZEPINES SCREEN,URINE NEGATIVE (NEGATIVE); CANNABINOID SCREEN,URINE NEGATIVE (NEGATIVE); COCAINE SCREEN,URINE NEGATIVE (NEGATIVE); METHADONE SCREEN, URINE NEGATIVE (NEGATIVE); OPIATE SCREEN,URINE NEGATIVE (NEGATIVE); PHENCYCLIDINE SCREEN,URINE NEGATIVE (NEGATIVE)
[2023-02-07 16:15] LABS: ANION GAP 22 mmol/L (8-16); CALCIUM, TOTAL 8.2 mg/dL (8.8-10.5); CARBON DIOXIDE 22 mmol/L (22-29); CHLORIDE 96 mmol/L (98-107); GLOMERULAR FILTR. RATE CALC > 60 mL/min (>60); GLUCOSE,RANDOM 144 mg/dL (70-110); POTASSIUM 3.7 mmol/L (3.5-5.1); SODIUM SERUM 140 mmol/L (136-145)
[2023-02-07] MEDS ORDERED: LORazepam 1 MG TABLET PO ONE (16:15)
[2023-02-07 16:19] LABS: ALBUMIN 3.2 g/dL (3.4-5.0); ALKALINE PHOSPHATASE 93 U/L (46-116); BILIRUBIN,TOTAL 0.4 mg/dL (0.1-1.0); TOTAL PROTEIN, SERUM 6.7 g/dL (6.4-8.2)
[2023-02-07 16:31] LABS: ALANINE AMINOTRANSFERASE 14 U/L (12-78)
[2023-02-07 16:32] LABS: ASPARTATE AMINOTRANSFERASE 18 U/L (15-37)
[2023-02-07] MEDS ORDERED: HALOPERIDOL 5 MG TABLET PO PRN (18:00)
[2023-02-07 18:27] LABS: COVID AG,FIA SOURCE NASAL SWAB
[2023-02-07] MEDS: ZOLPIDEM TARTRATE 10 MG TABLET PO PRN (21:05)
[2023-02-08] MEDS: LORazepam 2 MG TABLET PO PRN (08:59)
[2023-02-08 19:24] VITALS: BP 134/96; PULSE 95; RESP 18; TEMP 97.8; O2SAT 96
[2023-02-08 20:56] VITALS: BP 110/82; PULSE 83; RESP 19; TEMP 97.7; O2SAT 96
[2023-02-08] MEDS: ATORVASTATIN CALCIUM 40 MG TABLET PO SCH (21:04)
[2023-02-08] MEDS: ZOLPIDEM TARTRATE 10 MG TABLET PO PRN (21:04)
[2023-02-09] MEDS: LORazepam 2 MG TABLET PO PRN (08:15)
[2023-02-09 08:23] VITALS: BP 112/64; PULSE 88; RESP 18; TEMP 97.6; O2SAT 96
[2023-02-09] MEDS ORDERED: LOPERAMIDE HCL 2 MG CAPSULE PO PRN (18:30)
[2023-02-09] MEDS ORDERED: IBUPROFEN 600 MG TABLET PO PRN (18:30)
[2023-02-09] MEDS ORDERED: OMEPRAZOLE 20 MG CAPSULE PO PRN (18:30)
[2023-02-09] MEDS ORDERED: BENZOCAINE/MENTHOL LOZENGE PO PRN (18:30)
[2023-02-09] MEDS ORDERED: MAG HYDROX/AL HYDROX/SIMETH ES 30 ML SUSPENSION UDCUP PO PRN (18:30)
[2023-02-09] MEDS ORDERED: DOCUSATE SODIUM 100 MG CAPSULE PO PRN (18:30)
[2023-02-09] MEDS ORDERED: BACITRACIN 28 GM OINTMENT TP PRN (18:30)
[2023-02-09] MEDS ORDERED: ONDANSETRON HCL 4 MG TABLET PO PRN (18:30)
[2023-02-09] MEDS ORDERED: PETROLATUM,WHITE 28 GM JELLY TP PRN (18:30)
[2023-02-09] MEDS ORDERED: ACETAMINOPHEN 325 MG TABLET PO PRN (18:30)
[2023-02-09] MEDS ORDERED: MAGNESIUM HYDROXIDE SUSPENSION 30 ML UDCUP PO PRN (18:30)
[2023-02-09] MEDS ORDERED: ALBUTEROL SULFATE HFA 90 MCG/PUFF 8 GM INHALER IH PRN (18:30)
[2023-02-09] MEDS ORDERED: CloNIDine HCL 0.1 MG TABLET PO PRN (18:30)
[2023-02-09 20:36] VITALS: BP 138/93; PULSE 80; RESP 18; TEMP 97.7; O2SAT 94
[2023-02-09 20:39] VITALS: BP 120/28; PULSE 63; RESP 19; TEMP 94
[2023-02-09] MEDS: OLANZapine 10 MG TABLET PO SCH (20:48)
[2023-02-09] MEDS: ATORVASTATIN CALCIUM 40 MG TABLET PO SCH (20:48)
[2023-02-09] MEDS: ZOLPIDEM TARTRATE 10 MG TABLET PO PRN (23:06)
[2023-02-10 08:40] VITALS: BP 128/56; PULSE 70; RESP 18; TEMP 98.2; O2SAT 95
[2023-02-10] MEDS: BuPROPion HCL XL 150 MG ER TABLET PO SCH (08:58)
[2023-02-10] MEDS: ASPIRIN 81 MG DR TABLET PO SCH (08:58)
[2023-02-10] MEDS: OLANZapine 10 MG TABLET PO SCH (20:25)
[2023-02-10] MEDS: ATORVASTATIN CALCIUM 40 MG TABLET PO SCH (20:25)
[2023-02-10] MEDS: ZOLPIDEM TARTRATE 10 MG TABLET PO PRN (20:37)
[2023-02-10 20:41] VITALS: BP 136/73; PULSE 89; RESP 19; TEMP 98.1; O2SAT 92
[2023-02-11 08:06] LABS: HEPATITIS C AB (EIA) Non Reactive (Non Reactive)
[2023-02-11 08:37] VITALS: BP 130/83; PULSE 75; RESP 18; TEMP 97.5; O2SAT 97
[2023-02-11] MEDS: ASPIRIN 81 MG DR TABLET PO SCH (10:06)
[2023-02-11] MEDS: BuPROPion HCL XL 150 MG ER TABLET PO SCH (10:06)
[2023-02-11 20:30] VITALS: BP 116/82; PULSE 80; RESP 19; TEMP 98; O2SAT 95
[2023-02-11] MEDS: OLANZapine 10 MG TABLET PO SCH (20:37)
[2023-02-11] MEDS: ATORVASTATIN CALCIUM 40 MG TABLET PO SCH (20:40)
[2023-02-11] MEDS: ZOLPIDEM TARTRATE 10 MG TABLET PO PRN (20:41)
[2023-02-12 08:44] VITALS: BP 117/60; PULSE 71; RESP 16; TEMP 97.7; O2SAT 96
[2023-02-12] MEDS: ASPIRIN 81 MG DR TABLET PO SCH (09:45)
[2023-02-12] MEDS: BuPROPion HCL XL 150 MG ER TABLET PO SCH (09:45)
[2023-02-12] MEDS ORDERED: BUPR450T3 PO (16:48)
[2023-02-12] MEDS: ATORVASTATIN CALCIUM 40 MG TABLET PO SCH (20:28)
[2023-02-12] MEDS: OLANZapine 10 MG TABLET PO SCH (20:28)
[2023-02-12] MEDS: ZOLPIDEM TARTRATE 10 MG TABLET PO PRN (21:01)
[2023-02-12 21:24] VITALS: BP 137/69; PULSE 79; RESP 18; TEMP 98.2; O2SAT 94
[2023-02-13] MEDS ORDERED: ASPI-1450 PO (08:41)
[2023-02-13] MEDS ORDERED: ATOR40TA28 PO (08:42)
[2023-02-13] MEDS: ASPIRIN 81 MG DR TABLET PO SCH (09:02)
[2023-02-13] MEDS: BuPROPion HCL XL 150 MG ER TABLET PO SCH (09:02)
== END 2023-02-13 10:45 | disposition home or self-care (01) | DRG 885 ==
LOC: EMS 14:50 → B2S 02-08 14:59
PROVIDERS: ADMIT Psychiatry & Neurology Psychiatry; ATTEND Psychiatry & Neurology Psychiatry
DX: F25.9 Schizoaffective disorder, unspecified (principal); R45.851 Suicidal ideations; Z20.822 Contact with and (suspected) exposure to COVID-19; E78.00 Pure hypercholesterolemia, unspecified; F10.10 Alcohol abuse, uncomplicated; F43.10 Post-traumatic stress disorder, unspecified; E66.9 Obesity, unspecified; I10 Essential (primary) hypertension; J44.9 Chronic obstructive pulmonary disease, unspecified; F17.210 Nicotine dependence, cigarettes, uncomplicated; Z96.642 Presence of left artificial hip joint; K21.9 Gastro-esophageal reflux disease without esophagitis; F19.10 Other psychoactive substance abuse, uncomplicated; G47.00 Insomnia, unspecified; K59.00 Constipation, unspecified; F12.90 Cannabis use, unspecified, uncomplicated; G89.29 Other chronic pain; Z88.6 Allergy status to analgesic agent
CPT/HCPCS: 80053; 80307; 85025; 86803; 87081; 87340; 99285; G0480

== ENCOUNTER 2023-02-21 13:04 | Inpatient (IN) | payer SELFPAY ==
[~2023-02-21] VITALS: Ht 177.8 cm; Wt 121.6 kg
[~2023-02-21 13:04] MED LIST changes: +ASPI-1450 PO; -BUPR-49 PO; -BUPR-50 PO; -OLAN10TA74 PO
[2023-02-21 13:38] LABS: BASOPHILS % (AUTO) 1.2 % (0.0-2.0); EOSINOPHILS % (AUTO) 1.2 % (1.0-6.0); HEMATOCRIT 45.1 % (41-53); HEMOGLOBIN 15.8 g/dL (13.5-17.5); LYMPHOCYTES # (AUTO) 3.1 K/uL (1.0-4.8); LYMPHOCYTES % (AUTO) 30.5 % (22.0-44.0); MEAN CORPUSCULAR HEMOGLOBIN 30.3 pg (26.0-34.0); MEAN CORPUSCULAR HGB CONC 35.1 G/dL (31.0-37.0); MEAN CORPUSCULAR VOLUME 86 fL (80-100); MONOCYTES # (AUTO) 0.7 K/uL (0.1-1.0); MONOCYTES % (AUTO) 6.9 % (2.0-9.0); NEUTROPHILS % (AUTO) 60.2 % (40.0-70.0); PLATELET COUNT (AUTO) 216 K/uL (150-450); RED BLOOD CELL COUNT(AUTO) 5.22 MIL/uL (4.50-5.90); RED CELL DISTRIBUTION WIDTH 13.4 % (11.5-14.5)
[2023-02-21 13:52] LABS: ANION GAP 11 mmol/L (8-16); CALCIUM, TOTAL 8.7 mg/dL (8.8-10.5); CARBON DIOXIDE 22 mmol/L (22-29); CHLORIDE 100 mmol/L (98-107); CREATININE 0.99 mg/dL (0.60-1.30); GLOMERULAR FILTR. RATE CALC > 60 mL/min (>60); GLUCOSE,RANDOM 116 mg/dL (70-110); POTASSIUM 3.3 mmol/L (3.5-5.1); SODIUM SERUM 133 mmol/L (136-145); UREA NITROGEN, BLOOD 10 mg/dL (7-18)
[2023-02-21 13:58] LABS: ALANINE AMINOTRANSFERASE 33 U/L (12-78); ALBUMIN 3.4 g/dL (3.4-5.0); ALKALINE PHOSPHATASE 94 U/L (46-116); ASPARTATE AMINOTRANSFERASE 31 U/L (15-37); BILIRUBIN,TOTAL 0.4 mg/dL (0.1-1.0); TOTAL PROTEIN, SERUM 6.9 g/dL (6.4-8.2)
[2023-02-21 14:02] LABS: TROPONIN I-HIGH SENSITIVITY 7 ng/L (<76)
[2023-02-21 14:08] LABS: ALCOHOL, BLOOD (SERUM) 109 mg/dL (0-10)
[2023-02-21 14:19] LABS: B-TYPE NATRIURETIC PEPTIDE 5 pg/mL (0-100)
[2023-02-21 18:10] LABS: APPEARANCE,URINE CLEAR (CLEAR); BILIRUBIN,URINE NEGATIVE (NEGATIVE); COLOR,URINE LIGHT YELLOW (YELLOW); GLUCOSE, URINE (UA) NEGATIVE (NEGATIVE); KETONES,URINE NEGATIVE (NEGATIVE); LEUKOCYTE ESTERASE ,URINE MODERATE (NEGATIVE); NITRATE,URINE NEGATIVE (NEGATIVE); OCCULT BLOOD,URINE NEGATIVE (NEGATIVE); PROTEIN,URINE TRACE mg/dL (NEGATIVE); SPECIFIC GRAVITIY, URINE 1.021 (1.003-1.030)
[2023-02-21 18:16] LABS: ALCOHOL, URINE DRUG SCREEN POSITIVE (NEGATIVE); AMPHET/METH SCREEN,URINE NEGATIVE (NEGATIVE); BARBITURATE SCREEN, URINE NEGATIVE (NEGATIVE); BENZODIAZEPINES SCREEN,URINE NEGATIVE (NEGATIVE); CANNABINOID SCREEN,URINE NEGATIVE (NEGATIVE); COCAINE SCREEN,URINE NEGATIVE (NEGATIVE); METHADONE SCREEN, URINE NEGATIVE (NEGATIVE); OPIATE SCREEN,URINE NEGATIVE (NEGATIVE); PHENCYCLIDINE SCREEN,URINE NEGATIVE (NEGATIVE)
[2023-02-21 18:18] LABS: BACTERIA,URINE Rare /HPF (None Seen); RBC,URINE 0-2 /HPF (0-2); SQUAMOUS EPITHELIAL CELL,UR Rare /LPF (None Seen)
[2023-02-21] MEDS: LORazepam 2 MG TABLET PO PRN (18:24)
[2023-02-21 20:06] LABS: COVID AG,FIA SOURCE NASAL SWAB
[2023-02-21 20:25] LABS: SARS-COV2 (COVID) ANTIGEN,FIA Negative (Negative)
[2023-02-22] MEDS: ZOLPIDEM TARTRATE 10 MG TABLET PO PRN ×2 (02:02→21:08)
[2023-02-22] MEDS: LORazepam 2 MG TABLET PO PRN ×2 (10:52→17:53)
[2023-02-22 11:46] VITALS: BP 152/105; PULSE 88; RESP 18; TEMP 97.7; O2SAT 93
[2023-02-22 20:11] VITALS: BP 134/97; PULSE 82; RESP 21; TEMP 98.3; O2SAT 97
[2023-02-22] MEDS ORDERED: ALBUTEROL SULFATE HFA 90 MCG/PUFF 8 GM INHALER IH PRN (20:30)
[2023-02-22] MEDS ORDERED: ONDANSETRON HCL 4 MG TABLET PO PRN (20:30)
[2023-02-22] MEDS ORDERED: ACETAMINOPHEN 325 MG TABLET PO PRN (20:30)
[2023-02-22] MEDS ORDERED: CloNIDine HCL 0.1 MG TABLET PO PRN (20:30)
[2023-02-22] MEDS ORDERED: IBUPROFEN 600 MG TABLET PO PRN (20:30)
[2023-02-22] MEDS ORDERED: LOPERAMIDE HCL 2 MG CAPSULE PO PRN (20:30)
[2023-02-22] MEDS ORDERED: MAG HYDROX/AL HYDROX/SIMETH ES 30 ML SUSPENSION UDCUP PO PRN (20:30)
[2023-02-22] MEDS ORDERED: DOCUSATE SODIUM 100 MG CAPSULE PO PRN (20:30)
[2023-02-22] MEDS ORDERED: BENZOCAINE/MENTHOL LOZENGE PO PRN (20:30)
[2023-02-22] MEDS ORDERED: BACITRACIN 28 GM OINTMENT TP PRN (20:30)
[2023-02-22] MEDS ORDERED: PETROLATUM,WHITE 28 GM JELLY TP PRN (20:30)
[2023-02-22] MEDS ORDERED: MAGNESIUM HYDROXIDE SUSPENSION 30 ML UDCUP PO PRN (20:30)
[2023-02-22] MEDS ORDERED: POTASSIUM CHLORIDE 20 MEQ ER TABLET PO ONE (20:30)
[2023-02-22] MEDS ORDERED: OMEPRAZOLE 20 MG CAPSULE PO PRN (20:30)
[2023-02-23 08:26] LABS: POTASSIUM 3.6 mmol/L (3.5-5.1)
[2023-02-23 08:54] VITALS: BP 141/78; PULSE 69; RESP 15; TEMP 97.8; O2SAT 97
[2023-02-23] MEDS: HALOPERIDOL 5 MG TABLET PO PRN (10:28)
[2023-02-23] MEDS: LORazepam 2 MG TABLET PO PRN ×2 (10:28→20:44)
[2023-02-23 20:05] VITALS: BP 144/104; PULSE 86; RESP 18; TEMP 97.8; O2SAT 95
[2023-02-23] MEDS: ZOLPIDEM TARTRATE 10 MG TABLET PO PRN (21:55)
[2023-02-24] MEDS: LORazepam 2 MG TABLET PO PRN ×2 (08:26→14:30)
[2023-02-24 08:34] VITALS: BP 134/69; PULSE 74; RESP 18; TEMP 97.5; O2SAT 96
[2023-02-24] MEDS: CIPROFLOXACIN HCL 500 MG TABLET PO SCH (16:35)
[2023-02-24 20:07] VITALS: BP 141/90; PULSE 78; RESP 18; TEMP 97.6; O2SAT 94
[2023-02-24] MEDS: ZOLPIDEM TARTRATE 10 MG TABLET PO PRN (21:19)
[2023-02-25 08:23] VITALS: BP 139/82; PULSE 76; RESP 17; TEMP 97.5; O2SAT 98
[2023-02-25] MEDS: CIPROFLOXACIN HCL 500 MG TABLET PO SCH ×2 (09:28→16:43)
[2023-02-25] MEDS: LORazepam 2 MG TABLET PO PRN ×2 (10:29→16:19)
[2023-02-25] MEDS: HALOPERIDOL 5 MG TABLET PO PRN (16:19)
[2023-02-25 20:27] VITALS: BP 139/89; PULSE 84; RESP 19; TEMP 98.7; O2SAT 100
[2023-02-25] MEDS: OLANZapine 7.5 MG TABLET PO SCH (20:43)
[2023-02-25] MEDS: ZOLPIDEM TARTRATE 10 MG TABLET PO PRN (20:59)
[2023-02-26] MEDS: ASPIRIN 81 MG CHEWABLE TABLET PO SCH (07:04)
[2023-02-26 08:35] LABS: CHOL/HDL RATIO 5.9 (4.2-7.3)
[2023-02-26] MEDS: CIPROFLOXACIN HCL 500 MG TABLET PO SCH ×2 (09:09→17:16)
[2023-02-26] MEDS: BuPROPion HCL XL 150 MG ER TABLET PO SCH (09:10)
[2023-02-26] MEDS: OMEPRAZOLE 20 MG CAPSULE PO SCH (09:10)
[2023-02-26 10:00] VITALS: RESP 18; TEMP 97.8
[2023-02-26 20:21] VITALS: BP 141/65; PULSE 80; RESP 18; TEMP 98.2; O2SAT 95
[2023-02-26] MEDS: ATORVASTATIN CALCIUM 40 MG TABLET PO SCH (21:11)
[2023-02-26] MEDS: LORazepam 2 MG TABLET PO PRN (21:12)
[2023-02-26] MEDS: OLANZapine 7.5 MG TABLET PO SCH (21:12)
[2023-02-26] MEDS: ZOLPIDEM TARTRATE 10 MG TABLET PO PRN (22:46)
[2023-02-27] MEDS: ASPIRIN 81 MG CHEWABLE TABLET PO SCH (06:39)
[2023-02-27] MEDS: OMEPRAZOLE 20 MG CAPSULE PO SCH (08:32)
[2023-02-27] MEDS: LORazepam 2 MG TABLET PO PRN (08:32)
[2023-02-27] MEDS: BuPROPion HCL XL 150 MG ER TABLET PO SCH (08:32)
[2023-02-27] MEDS: CIPROFLOXACIN HCL 500 MG TABLET PO SCH ×2 (08:32→17:37)
[2023-02-27 15:05] VITALS: BP 136/60; PULSE 72; RESP 18; TEMP 98; O2SAT 97
[2023-02-27 20:33] VITALS: BP 128/85; PULSE 69; RESP 18; TEMP 98.2; O2SAT 96
[2023-02-27] MEDS: ATORVASTATIN CALCIUM 40 MG TABLET PO SCH (21:03)
[2023-02-27] MEDS: ZOLPIDEM TARTRATE 10 MG TABLET PO PRN (21:03)
[2023-02-27] MEDS: OLANZapine 7.5 MG TABLET PO SCH (21:03)
[2023-02-28] MEDS: ASPIRIN 81 MG CHEWABLE TABLET PO SCH (06:31)
[2023-02-28 08:24] VITALS: BP 125/59; PULSE 88; RESP 18; TEMP 97.4; O2SAT 95
[2023-02-28] MEDS: OMEPRAZOLE 20 MG CAPSULE PO SCH (08:58)
[2023-02-28] MEDS: CIPROFLOXACIN HCL 500 MG TABLET PO SCH ×2 (08:58→16:11)
[2023-02-28] MEDS: BuPROPion HCL XL 150 MG ER TABLET PO SCH (08:59)
[2023-02-28] MEDS: LORazepam 2 MG TABLET PO PRN (13:02)
[2023-02-28 20:43] VITALS: BP 126/85; PULSE 97; RESP 17; TEMP 97.5; O2SAT 97
[2023-02-28] MEDS: ATORVASTATIN CALCIUM 40 MG TABLET PO SCH (20:49)
[2023-02-28] MEDS: OLANZapine 7.5 MG TABLET PO SCH (20:49)
[2023-02-28] MEDS: ZOLPIDEM TARTRATE 10 MG TABLET PO PRN (20:49)
[2023-03-01] MEDS: ASPIRIN 81 MG CHEWABLE TABLET PO SCH (06:53)
[2023-03-01] MEDS: LORazepam 2 MG TABLET PO PRN (08:55)
[2023-03-01] MEDS: OMEPRAZOLE 20 MG CAPSULE PO SCH (08:55)
[2023-03-01] MEDS: CIPROFLOXACIN HCL 500 MG TABLET PO SCH ×2 (08:55→17:25)
[2023-03-01] MEDS: BuPROPion HCL XL 150 MG ER TABLET PO SCH (08:56)
[2023-03-01 09:38] VITALS: BP 119/60; PULSE 86; RESP 20; TEMP 97; O2SAT 96
[2023-03-01 20:33] VITALS: BP 134/84; PULSE 77; RESP 19; TEMP 98; O2SAT 95
[2023-03-01] MEDS: OLANZapine 7.5 MG TABLET PO SCH (20:46)
[2023-03-01] MEDS: ATORVASTATIN CALCIUM 40 MG TABLET PO SCH (20:46)
[2023-03-01] MEDS: ZOLPIDEM TARTRATE 10 MG TABLET PO PRN (21:17)
[2023-03-02] MEDS: ASPIRIN 81 MG CHEWABLE TABLET PO SCH (06:59)
[2023-03-02 08:28] VITALS: BP 129/78; PULSE 71; RESP 18; TEMP 97.8; O2SAT 95
[2023-03-02] MEDS: OMEPRAZOLE 20 MG CAPSULE PO SCH (08:36)
[2023-03-02] MEDS: FOLIC ACID 1 MG TABLET PO SCH (08:36)
[2023-03-02] MEDS: BuPROPion HCL XL 150 MG ER TABLET PO SCH (08:36)
[2023-03-02] MEDS: THIAMINE 100 MG TABLET PO SCH (08:36)
[2023-03-02] MEDS: LORazepam 2 MG TABLET PO PRN (12:31)
[2023-03-02 20:41] VITALS: BP 129/85; PULSE 78; RESP 18; TEMP 97.9; O2SAT 98
[2023-03-02] MEDS: ZOLPIDEM TARTRATE 10 MG TABLET PO PRN (21:56)
[2023-03-02] MEDS: OLANZapine 7.5 MG TABLET PO SCH (21:56)
[2023-03-02] MEDS: ATORVASTATIN CALCIUM 40 MG TABLET PO SCH (22:11)
[2023-03-03] MEDS: ASPIRIN 81 MG CHEWABLE TABLET PO SCH (06:39)
[2023-03-03 08:17] VITALS: BP 118/75; PULSE 69; RESP 18; TEMP 97.8; O2SAT 95
[2023-03-03] MEDS: THIAMINE 100 MG TABLET PO SCH (09:15)
[2023-03-03] MEDS: OMEPRAZOLE 20 MG CAPSULE PO SCH (09:15)
[2023-03-03] MEDS: BuPROPion HCL XL 150 MG ER TABLET PO SCH (09:16)
[2023-03-03] MEDS: FOLIC ACID 1 MG TABLET PO SCH (09:16)
[2023-03-03 20:28] VITALS: BP 117/77; PULSE 80; RESP 17; TEMP 98.3; O2SAT 95
[2023-03-03] MEDS: ATORVASTATIN CALCIUM 40 MG TABLET PO SCH (20:42)
[2023-03-03] MEDS: OLANZapine 7.5 MG TABLET PO SCH (20:42)
[2023-03-03] MEDS: LORazepam 2 MG TABLET PO PRN (20:52)
[2023-03-03] MEDS: ZOLPIDEM TARTRATE 10 MG TABLET PO PRN (22:05)
[2023-03-04] MEDS: ASPIRIN 81 MG CHEWABLE TABLET PO SCH (06:50)
[2023-03-04] MEDS: THIAMINE 100 MG TABLET PO SCH (08:30)
[2023-03-04] MEDS: BuPROPion HCL XL 150 MG ER TABLET PO SCH (08:30)
[2023-03-04] MEDS: OMEPRAZOLE 20 MG CAPSULE PO SCH (08:30)
[2023-03-04] MEDS: FOLIC ACID 1 MG TABLET PO SCH (08:30)
[2023-03-04 08:32] VITALS: BP 117/67; PULSE 77; RESP 18; TEMP 97.8; O2SAT 97
[2023-03-04] MEDS ORDERED: OLAN7.5T22 PO (14:25)
[2023-03-04] MEDS ORDERED: BUPR-345 PO (14:25)
[2023-03-04] MEDS ORDERED: ATOR40TA28 PO (14:26)
[2023-03-04] MEDS ORDERED: ASPI-1450 PO (14:26)
[2023-03-04] MEDS ORDERED: OMEP20 PO (14:27)
== END 2023-03-04 14:45 | disposition home or self-care (01) | DRG 885 ==
LOC: EMS 13:05 → B2S 02-22 08:40
PROVIDERS: ADMIT Psychiatry & Neurology Psychiatry; ATTEND Psychiatry & Neurology Psychiatry
DX: F25.1 Schizoaffective disorder, depressive type (principal); F43.10 Post-traumatic stress disorder, unspecified; J44.9 Chronic obstructive pulmonary disease, unspecified; E66.9 Obesity, unspecified; F41.9 Anxiety disorder, unspecified; K21.9 Gastro-esophageal reflux disease without esophagitis; G47.00 Insomnia, unspecified; K59.00 Constipation, unspecified; F12.10 Cannabis abuse, uncomplicated; E87.6 Hypokalemia; M19.90 Unspecified osteoarthritis, unspecified site; G89.29 Other chronic pain; M25.559 Pain in unspecified hip; Z20.822 Contact with and (suspected) exposure to COVID-19; I10 Essential (primary) hypertension; E78.00 Pure hypercholesterolemia, unspecified; F10.129 Alcohol abuse with intoxication, unspecified; Y90.5 Blood alcohol level of 100-119 mg/100 ml; F17.210 Nicotine dependence, cigarettes, uncomplicated; Z96.642 Presence of left artificial hip joint; Z68.38 Body mass index [BMI] 38.0-38.9, adult; Z88.5 Allergy status to narcotic agent
CPT/HCPCS: 71045; 80053; 80061; 80307; 81001; 83880; 84132; 84295; 84484; 85025; 87081; 87086; 87186; 93005; 99285; G0480; 36415-L1; 36415-TC

== ENCOUNTER 2023-05-06 06:05 | Inpatient (IN) | payer MEDICAID ==
[~2023-05-06] VITALS: Ht 177.8 cm; Wt 129.7 kg
[~2023-05-06 06:05] MED LIST changes: +BUPR-345 PO; +OLAN7.5T22 PO; +OMEP20 PO
[2023-05-06 06:32] LABS: BASOPHILS % (AUTO) 0.8 % (0.0-2.0); EOSINOPHILS % (AUTO) 1.6 % (1.0-6.0); HEMATOCRIT 43.9 % (41-53); HEMOGLOBIN 15.3 g/dL (13.5-17.5); LYMPHOCYTES # (AUTO) 2.5 K/uL (1.0-4.8); LYMPHOCYTES % (AUTO) 27.1 % (22.0-44.0); MEAN CORPUSCULAR HEMOGLOBIN 30.7 pg (26.0-34.0); MEAN CORPUSCULAR HGB CONC 34.9 G/dL (31.0-37.0); MEAN CORPUSCULAR VOLUME 88 fL (80-100); MONOCYTES # (AUTO) 0.6 K/uL (0.1-1.0); MONOCYTES % (AUTO) 6.7 % (2.0-9.0); NEUTROPHILS # (AUTO) 5.8 K/uL (1.8-7.7); NEUTROPHILS % (AUTO) 63.8 % (40.0-70.0); PLATELET COUNT (AUTO) 212 K/uL (150-450); RED BLOOD CELL COUNT(AUTO) 4.99 MIL/uL (4.50-5.90); RED CELL DISTRIBUTION WIDTH 14.5 % (11.5-14.5); WHITE BLOOD COUNT (AUTO) 9.1 K/uL (4.5-11.0)
[2023-05-06 06:34] LABS: COVID AG,FIA SOURCE NASAL SWAB
[2023-05-06 06:46] LABS: ANION GAP 11 mmol/L (8-16); CALCIUM, TOTAL 9.2 mg/dL (8.8-10.5); CARBON DIOXIDE 25 mmol/L (22-29); CHLORIDE 99 mmol/L (98-107); GLOMERULAR FILTR. RATE CALC > 60 mL/min (>60); GLUCOSE,RANDOM 117 mg/dL (70-110); POTASSIUM 3.5 mmol/L (3.5-5.1); SODIUM SERUM 135 mmol/L (136-145); UREA NITROGEN, BLOOD 7 mg/dL (7-18)
[2023-05-06 06:51] LABS: ALANINE AMINOTRANSFERASE 23 U/L (12-78); ALBUMIN 3.5 g/dL (3.4-5.0); ALKALINE PHOSPHATASE 93 U/L (46-116); ASPARTATE AMINOTRANSFERASE 17 U/L (15-37); BILIRUBIN,TOTAL 0.6 mg/dL (0.1-1.0); TOTAL PROTEIN, SERUM 7.5 g/dL (6.4-8.2)
[2023-05-06 06:57] LABS: SARS-COV2 (COVID) ANTIGEN,FIA Negative (Negative)
[2023-05-06 06:58] LABS: ALCOHOL, BLOOD (SERUM) < 3 mg/dL (0-10)
[2023-05-06 07:41] LABS: PH,URINE DRUG SCREEN 5.5 (5.0-8.0)
[2023-05-06] MEDS ORDERED: LORazepam 1 MG TABLET PO ONE (07:45)
[2023-05-06 07:53] LABS: ALCOHOL, URINE DRUG SCREEN NEGATIVE (NEGATIVE); AMPHET/METH SCREEN,URINE NEGATIVE (NEGATIVE); BARBITURATE SCREEN, URINE NEGATIVE (NEGATIVE); BENZODIAZEPINES SCREEN,URINE NEGATIVE (NEGATIVE); CANNABINOID SCREEN,URINE NEGATIVE (NEGATIVE); COCAINE SCREEN,URINE NEGATIVE (NEGATIVE); METHADONE SCREEN, URINE NEGATIVE (NEGATIVE); OPIATE SCREEN,URINE NEGATIVE (NEGATIVE); PHENCYCLIDINE SCREEN,URINE NEGATIVE (NEGATIVE)
[2023-05-06] MEDS ORDERED: HALOPERIDOL 5 MG TABLET PO PRN (08:15)
[2023-05-06 08:24] LABS: APPEARANCE,URINE CLEAR (CLEAR); BILIRUBIN,URINE NEGATIVE (NEGATIVE); COLOR,URINE YELLOW (YELLOW); GLUCOSE, URINE (UA) NEGATIVE (NEGATIVE); KETONES,URINE NEGATIVE (NEGATIVE); LEUKOCYTE ESTERASE ,URINE MODERATE (NEGATIVE); NITRATE,URINE NEGATIVE (NEGATIVE); OCCULT BLOOD,URINE NEGATIVE (NEGATIVE); PH,URINE 5.5 (5.0-8.0); PROTEIN,URINE TRACE mg/dL (NEGATIVE); SPECIFIC GRAVITIY, URINE 1.025 (1.003-1.030); UROBILINOGEN,URINE <=1.0 mg/dL (<=1.0)
[2023-05-06 08:37] LABS: BACTERIA,URINE Few /HPF (None Seen); RBC,URINE None Seen /HPF (0-2); SQUAMOUS EPITHELIAL CELL,UR Few /LPF (None Seen)
[2023-05-06 11:53] VITALS: BP 158/95; PULSE 79; RESP 18; TEMP 98.1; O2SAT 99
[2023-05-06] MEDS ORDERED: MAG HYDROX/ALUMINUM HYD/SIMETH ES 30 ML SUSPENSION UDCUP PO PRN (17:30)
[2023-05-06] MEDS ORDERED: BENZOCAINE/MENTHOL LOZENGE PO PRN (17:30)
[2023-05-06] MEDS ORDERED: ALBUTEROL SULFATE HFA 90 MCG/PUFF 8 GM INHALER IH PRN (17:30)
[2023-05-06] MEDS ORDERED: PETROLATUM,WHITE 28 GM JELLY TP PRN (17:30)
[2023-05-06] MEDS ORDERED: LOPERAMIDE HCL 2 MG CAPSULE PO PRN (17:30)
[2023-05-06] MEDS: NICOTINE 21 MG/24 HOUR PATCH TD SCH (17:30)
[2023-05-06] MEDS ORDERED: DOCUSATE SODIUM 100 MG CAPSULE PO PRN (17:30)
[2023-05-06] MEDS ORDERED: OMEPRAZOLE 20 MG CAPSULE PO PRN (17:30)
[2023-05-06] MEDS ORDERED: ONDANSETRON HCL 4 MG TABLET PO PRN (17:30)
[2023-05-06] MEDS ORDERED: ACETAMINOPHEN 325 MG TABLET PO PRN (17:30)
[2023-05-06] MEDS ORDERED: BACITRACIN 28 GM OINTMENT TP PRN (17:30)
[2023-05-06] MEDS ORDERED: CloNIDine HCL 0.1 MG TABLET PO PRN (17:30)
[2023-05-06] MEDS ORDERED: IBUPROFEN 600 MG TABLET PO PRN (17:30)
[2023-05-06] MEDS ORDERED: MAGNESIUM HYDROXIDE SUSPENSION 30 ML UDCUP PO PRN (17:30)
[2023-05-06] MEDS: LORazepam 2 MG TABLET PO PRN (17:57)
[2023-05-06] MEDS: ATORVASTATIN CALCIUM 40 MG TABLET PO SCH (21:10)
[2023-05-06] MEDS: ZOLPIDEM TARTRATE 10 MG TABLET PO PRN (21:11)
[2023-05-06 21:45] VITALS: BP 105/60; PULSE 80; RESP 18; TEMP 98; O2SAT 95
[2023-05-07] MEDS: ASPIRIN 81 MG CHEWABLE TABLET PO SCH (08:23)
[2023-05-07] MEDS: NICOTINE 21 MG/24 HOUR PATCH TD SCH (08:24)
[2023-05-07 11:21] VITALS: BP 136/76; PULSE 81; RESP 18; TEMP 97.6; O2SAT 96
[2023-05-07] MEDS: LORazepam 2 MG TABLET PO PRN (11:58)
[2023-05-07] MEDS: BuPROPion HCL XL 150 MG ER TABLET PO SCH (15:07)
[2023-05-07 20:04] VITALS: BP 134/88; PULSE 81; RESP 18; TEMP 98.6; O2SAT 95
[2023-05-07] MEDS: OLANZapine 7.5 MG TABLET PO SCH (21:01)
[2023-05-07] MEDS: ATORVASTATIN CALCIUM 40 MG TABLET PO SCH (21:01)
[2023-05-07] MEDS: ZOLPIDEM TARTRATE 10 MG TABLET PO PRN (21:01)
[2023-05-08] MEDS: NICOTINE 21 MG/24 HOUR PATCH TD SCH (09:00)
[2023-05-08 09:24] VITALS: BP 140/98; PULSE 83; RESP 18; TEMP 97.1; O2SAT 100
[2023-05-08] MEDS: ASPIRIN 81 MG CHEWABLE TABLET PO SCH (11:18)
[2023-05-08] MEDS: BuPROPion HCL XL 150 MG ER TABLET PO SCH (11:20)
[2023-05-08] MEDS: LORazepam 2 MG TABLET PO PRN (12:12)
[2023-05-08 20:13] VITALS: BP 139/79; PULSE 95; RESP 16; TEMP 97.5; O2SAT 95
[2023-05-08] MEDS: OLANZapine 7.5 MG TABLET PO SCH (20:35)
[2023-05-08] MEDS: ATORVASTATIN CALCIUM 40 MG TABLET PO SCH (20:35)
[2023-05-08] MEDS: ZOLPIDEM TARTRATE 10 MG TABLET PO PRN (21:44)
[2023-05-09 08:49] VITALS: BP 138/78; PULSE 69; RESP 18; TEMP 98; O2SAT 98
[2023-05-09] MEDS: NICOTINE 21 MG/24 HOUR PATCH TD SCH (09:00)
[2023-05-09] MEDS: ASPIRIN 81 MG CHEWABLE TABLET PO SCH (09:34)
[2023-05-09] MEDS: BuPROPion HCL XL 150 MG ER TABLET PO SCH (09:35)
[2023-05-09] MEDS: OLANZapine 7.5 MG TABLET PO SCH (20:33)
[2023-05-09] MEDS: ATORVASTATIN CALCIUM 40 MG TABLET PO SCH (20:33)
[2023-05-09] MEDS: ZOLPIDEM TARTRATE 10 MG TABLET PO PRN (20:34)
[2023-05-09 21:41] VITALS: BP 140/78; PULSE 77; RESP 18; TEMP 98; O2SAT 97
[2023-05-10] MEDS: NICOTINE 21 MG/24 HOUR PATCH TD SCH (09:00)
[2023-05-10] MEDS: BuPROPion HCL XL 150 MG ER TABLET PO SCH (10:40)
[2023-05-10] MEDS: ASPIRIN 81 MG CHEWABLE TABLET PO SCH (10:40)
[2023-05-10] MEDS ORDERED: NICOTINE 21 MG/24 HOUR PATCH TD PRN (10:45)
[2023-05-10 12:22] VITALS: BP 137/67; PULSE 66; RESP 18; TEMP 97.5; O2SAT 96
[2023-05-10] MEDS: LORazepam 2 MG TABLET PO PRN (16:30)
[2023-05-10] MEDS: OLANZapine 7.5 MG TABLET PO SCH (20:24)
[2023-05-10] MEDS: ATORVASTATIN CALCIUM 40 MG TABLET PO SCH (20:24)
[2023-05-10 21:39] VITALS: BP 145/88; PULSE 71; RESP 18; TEMP 97.3; O2SAT 96
[2023-05-10] MEDS: ZOLPIDEM TARTRATE 10 MG TABLET PO PRN (22:06)
[2023-05-11] MEDS: BuPROPion HCL XL 150 MG ER TABLET PO SCH (08:47)
[2023-05-11] MEDS: ASPIRIN 81 MG CHEWABLE TABLET PO SCH (08:47)
[2023-05-11 08:55] VITALS: BP 142/59; PULSE 76; RESP 18; TEMP 97.4; O2SAT 98
[2023-05-11] MEDS: LORazepam 2 MG TABLET PO PRN (12:18)
[2023-05-11 20:51] VITALS: BP 129/92; PULSE 83; RESP 18; TEMP 98.1; O2SAT 97
[2023-05-11] MEDS: ATORVASTATIN CALCIUM 40 MG TABLET PO SCH (21:09)
[2023-05-11] MEDS: OLANZapine 7.5 MG TABLET PO SCH (21:09)
[2023-05-11] MEDS: ZOLPIDEM TARTRATE 10 MG TABLET PO PRN (22:04)
[2023-05-12] MEDS: BuPROPion HCL XL 150 MG ER TABLET PO SCH (08:18)
[2023-05-12] MEDS: ASPIRIN 81 MG CHEWABLE TABLET PO SCH (08:18)
[2023-05-12 08:52] VITALS: BP 100/71; PULSE 88; RESP 18; TEMP 97.7; O2SAT 98
[2023-05-12 20:52] VITALS: BP 158/92; PULSE 80; RESP 18; TEMP 97; O2SAT 96
[2023-05-12] MEDS: ATORVASTATIN CALCIUM 40 MG TABLET PO SCH (21:18)
[2023-05-12] MEDS: ZOLPIDEM TARTRATE 10 MG TABLET PO PRN (21:18)
[2023-05-12] MEDS: OLANZapine 7.5 MG TABLET PO SCH (21:18)
[2023-05-13 08:00] VITALS: BP 132/63; PULSE 66; RESP 18
[2023-05-13] MEDS: BuPROPion HCL XL 150 MG ER TABLET PO SCH (08:29)
[2023-05-13] MEDS: ASPIRIN 81 MG CHEWABLE TABLET PO SCH (08:29)
[2023-05-13] MEDS: LORazepam 2 MG TABLET PO PRN (12:40)
[2023-05-13 20:15] VITALS: BP 154/91; PULSE 97; RESP 18; TEMP 98.1; O2SAT 98
[2023-05-13] MEDS: ATORVASTATIN CALCIUM 40 MG TABLET PO SCH (21:09)
[2023-05-13] MEDS: OLANZapine 7.5 MG TABLET PO SCH (21:10)
[2023-05-13] MEDS: ZOLPIDEM TARTRATE 10 MG TABLET PO PRN (21:10)
[2023-05-14 10:33] VITALS: BP 142/58; PULSE 69; RESP 16; TEMP 97.4; O2SAT 99
[2023-05-14] MEDS: LORazepam 2 MG TABLET PO PRN (10:48)
[2023-05-14] MEDS: BuPROPion HCL XL 150 MG ER TABLET PO SCH (10:49)
[2023-05-14] MEDS: ASPIRIN 81 MG CHEWABLE TABLET PO SCH (10:49)
[2023-05-14 20:04] VITALS: BP 133/72; PULSE 80; RESP 18; TEMP 97.9
[2023-05-14] MEDS: ATORVASTATIN CALCIUM 40 MG TABLET PO SCH (20:52)
[2023-05-14] MEDS: OLANZapine 7.5 MG TABLET PO SCH (20:52)
[2023-05-14] MEDS: ZOLPIDEM TARTRATE 10 MG TABLET PO PRN (22:09)
[2023-05-15] MEDS: BuPROPion HCL XL 150 MG ER TABLET PO SCH (08:27)
[2023-05-15] MEDS: ASPIRIN 81 MG CHEWABLE TABLET PO SCH (08:27)
[2023-05-15 08:50] VITALS: BP 155/74; PULSE 64; RESP 18; TEMP 97.3; O2SAT 99
[2023-05-15 20:43] VITALS: BP 120/87; PULSE 78; RESP 18; TEMP 98; O2SAT 96
[2023-05-15] MEDS: ATORVASTATIN CALCIUM 40 MG TABLET PO SCH (20:47)
[2023-05-15] MEDS: ZOLPIDEM TARTRATE 10 MG TABLET PO PRN (20:47)
[2023-05-15] MEDS: OLANZapine 7.5 MG TABLET PO SCH (20:47)
[2023-05-16] MEDS: BuPROPion HCL XL 150 MG ER TABLET PO SCH (09:42)
[2023-05-16] MEDS: ASPIRIN 81 MG CHEWABLE TABLET PO SCH (09:43)
[2023-05-16 11:24] VITALS: BP 132/57; PULSE 70; RESP 18; TEMP 97.4
[2023-05-16] MEDS: LORazepam 2 MG TABLET PO PRN (13:43)
[2023-05-16 20:00] VITALS: BP 133/92; PULSE 89; RESP 20; TEMP 97.4; O2SAT 97
[2023-05-16] MEDS: ATORVASTATIN CALCIUM 40 MG TABLET PO SCH (21:02)
[2023-05-16] MEDS: OLANZapine 7.5 MG TABLET PO SCH (21:03)
[2023-05-16] MEDS: ZOLPIDEM TARTRATE 10 MG TABLET PO PRN (21:03)
[2023-05-17 08:30] VITALS: BP 124/56; PULSE 58; RESP 18; TEMP 97.6
[2023-05-17] MEDS: ASPIRIN 81 MG CHEWABLE TABLET PO SCH (10:00)
[2023-05-17] MEDS: BuPROPion HCL XL 150 MG ER TABLET PO SCH (10:01)
[2023-05-17] MEDS: LORazepam 2 MG TABLET PO PRN (13:27)
[2023-05-17] MEDS ORDERED: OLAN7.5T22 PO (20:51)
[2023-05-17] MEDS ORDERED: BUPR-49 PO (20:51)
[2023-05-17 20:56] VITALS: RESP 18
[2023-05-17] MEDS: ATORVASTATIN CALCIUM 40 MG TABLET PO SCH (21:28)
[2023-05-17] MEDS: OLANZapine 7.5 MG TABLET PO SCH (21:29)
[2023-05-17] MEDS: ZOLPIDEM TARTRATE 10 MG TABLET PO PRN (21:57)
[2023-05-18] MEDS: ASPIRIN 81 MG CHEWABLE TABLET PO SCH (09:19)
[2023-05-18] MEDS: BuPROPion HCL XL 150 MG ER TABLET PO SCH (09:20)
[2023-05-18 09:53] VITALS: BP 112/56; PULSE 72; RESP 18; TEMP 98.3; O2SAT 98
== END 2023-05-18 12:45 | disposition home or self-care (01) | DRG 750 ==
LOC: EMS 06:09 → 3EI 09:24
PROVIDERS: ADMIT Psychiatry & Neurology Psychiatry; ATTEND Psychiatry & Neurology Psychiatry
DX: F25.9 Schizoaffective disorder, unspecified (principal); R45.851 Suicidal ideations; E66.9 Obesity, unspecified; E78.00 Pure hypercholesterolemia, unspecified; F10.10 Alcohol abuse, uncomplicated; F41.9 Anxiety disorder, unspecified; M19.90 Unspecified osteoarthritis, unspecified site; J44.9 Chronic obstructive pulmonary disease, unspecified; Z20.822 Contact with and (suspected) exposure to COVID-19; I10 Essential (primary) hypertension; G47.33 Obstructive sleep apnea (adult) (pediatric); K21.9 Gastro-esophageal reflux disease without esophagitis; K59.00 Constipation, unspecified; G47.00 Insomnia, unspecified; F12.10 Cannabis abuse, uncomplicated; E87.6 Hypokalemia; F43.10 Post-traumatic stress disorder, unspecified; F31.9 Bipolar disorder, unspecified; F17.210 Nicotine dependence, cigarettes, uncomplicated; Z96.642 Presence of left artificial hip joint; T43.96XA Underdosing of unspecified psychotropic drug, initial encounter; Y92.89 Other specified places as the place of occurrence of the external cause; Z68.41 Body mass index [BMI] 40.0-44.9, adult; Z88.5 Allergy status to narcotic agent; Z79.899 Other long term (current) drug therapy; Z79.82 Long term (current) use of aspirin
CPT/HCPCS: 80053; 80307; 81001; 85025; 87086; 87186; 99285; G0480

== ENCOUNTER 2023-07-07 07:04 | Inpatient (IN) | payer MEDICAID, OTHER ==
[~2023-07-07] VITALS: Ht 182.9 cm; Wt 127.6 kg
[~2023-07-07 07:04] MED LIST changes: +BUPR-49 PO; -OMEP20 PO
[2023-07-07 08:19] LABS: BASOPHILS % (AUTO) 0.8 % (0.0-2.0); EOSINOPHILS % (AUTO) 1.8 % (1.0-6.0); HEMATOCRIT 44.2 % (41-53); HEMOGLOBIN 15.8 g/dL (13.5-17.5); LYMPHOCYTES # (AUTO) 1.8 K/uL (1.0-4.8); LYMPHOCYTES % (AUTO) 24.2 % (22.0-44.0); MEAN CORPUSCULAR HEMOGLOBIN 31.8 pg (26.0-34.0); MEAN CORPUSCULAR HGB CONC 35.8 G/dL (31.0-37.0); MEAN CORPUSCULAR VOLUME 89 fL (80-100); MONOCYTES # (AUTO) 0.6 K/uL (0.1-1.0); MONOCYTES % (AUTO) 7.6 % (2.0-9.0); NEUTROPHILS % (AUTO) 65.6 % (40.0-70.0); PLATELET COUNT (AUTO) 182 K/uL (150-450); RED BLOOD CELL COUNT(AUTO) 4.98 MIL/uL (4.50-5.90); RED CELL DISTRIBUTION WIDTH 14.2 % (11.5-14.5); WHITE BLOOD COUNT (AUTO) 7.6 K/uL (4.5-11.0)
[2023-07-07 08:30] LABS: ANION GAP 10 mmol/L (8-16); CARBON DIOXIDE 27 mmol/L (22-29); CHLORIDE 101 mmol/L (98-107); CREATININE 1.01 mg/dL (0.60-1.30); GLOMERULAR FILTR. RATE CALC > 60 mL/min (>60); GLUCOSE,RANDOM 109 mg/dL (70-110); POTASSIUM 3.8 mmol/L (3.5-5.1); SODIUM SERUM 138 mmol/L (136-145); UREA NITROGEN, BLOOD 7 mg/dL (7-18)
[2023-07-07 08:36] LABS: ALANINE AMINOTRANSFERASE 23 U/L (12-78); ALBUMIN 3.6 g/dL (3.4-5.0); ALKALINE PHOSPHATASE 88 U/L (46-116); ASPARTATE AMINOTRANSFERASE 19 U/L (15-37); BILIRUBIN,TOTAL 0.6 mg/dL (0.1-1.0)
[2023-07-07 08:43] LABS: ALCOHOL, BLOOD (SERUM) < 3 mg/dL (0-10)
[2023-07-07 09:09] LABS: COVID AG,FIA SOURCE NASAL SWAB
[2023-07-07 09:30] LABS: SARS-COV2 (COVID) ANTIGEN,FIA Negative (Negative)
[2023-07-07] MEDS ORDERED: HALOPERIDOL 5 MG TABLET PO PRN (09:45)
[2023-07-07] MEDS: LORazepam 2 MG TABLET PO PRN (11:27)
[2023-07-07] MEDS: BuPROPion HCL XL 150 MG ER TABLET PO SCH (11:28)
[2023-07-07] MEDS: ASPIRIN 81 MG CHEWABLE TABLET PO SCH (11:28)
[2023-07-07] MEDS ORDERED: PNEUMOCOCCAL VACCINE POLYVALENT 0.5 ML SYRINGE [PPSV23] IM. ONE (12:00)
[2023-07-07] MEDS: ZOLPIDEM TARTRATE 10 MG TABLET PO PRN (21:17)
[2023-07-07] MEDS: ATORVASTATIN CALCIUM 40 MG TABLET PO SCH (21:17)
[2023-07-07] MEDS: OLANZapine 7.5 MG TABLET PO SCH (21:17)
[2023-07-07] MEDS ORDERED: IBUPROFEN 600 MG TABLET PO PRN (21:45)
[2023-07-07] MEDS ORDERED: MAG HYDROX/ALUMINUM HYD/SIMETH ES 30 ML SUSPENSION UDCUP PO PRN (21:45)
[2023-07-07] MEDS ORDERED: BENZOCAINE/MENTHOL LOZENGE PO PRN (21:45)
[2023-07-07] MEDS ORDERED: ACETAMINOPHEN 325 MG TABLET PO PRN (21:45)
[2023-07-07] MEDS ORDERED: PETROLATUM,WHITE 28 GM JELLY TP PRN (21:45)
[2023-07-07] MEDS ORDERED: OMEPRAZOLE 20 MG CAPSULE PO PRN (21:45)
[2023-07-07] MEDS ORDERED: LOPERAMIDE HCL 2 MG CAPSULE PO PRN (21:45)
[2023-07-07] MEDS ORDERED: BACITRACIN 28 GM OINTMENT TP PRN (21:45)
[2023-07-07] MEDS ORDERED: MAGNESIUM HYDROXIDE SUSPENSION 30 ML UDCUP PO PRN (21:45)
[2023-07-07] MEDS ORDERED: DOCUSATE SODIUM 100 MG CAPSULE PO PRN (21:45)
[2023-07-07] MEDS ORDERED: ONDANSETRON HCL 4 MG TABLET PO PRN (21:45)
[2023-07-07] MEDS ORDERED: CloNIDine HCL 0.1 MG TABLET PO PRN (21:45)
[2023-07-07] MEDS ORDERED: ALBUTEROL SULFATE HFA 90 MCG/PUFF 8 GM INHALER IH PRN (21:45)
[2023-07-08] MEDS: BuPROPion HCL XL 150 MG ER TABLET PO SCH (08:34)
[2023-07-08] MEDS: ASPIRIN 81 MG CHEWABLE TABLET PO SCH (08:34)
[2023-07-08] MEDS: LORazepam 2 MG TABLET PO PRN (15:22)
[2023-07-08] MEDS: ATORVASTATIN CALCIUM 40 MG TABLET PO SCH (21:34)
[2023-07-08] MEDS: OLANZapine 7.5 MG TABLET PO SCH (21:34)
[2023-07-08] MEDS: ZOLPIDEM TARTRATE 10 MG TABLET PO PRN (21:34)
[2023-07-09] MEDS: ASPIRIN 81 MG CHEWABLE TABLET PO SCH (09:22)
[2023-07-09] MEDS: BuPROPion HCL XL 150 MG ER TABLET PO SCH (09:22)
[2023-07-09 15:42] LABS: APPEARANCE,URINE CLEAR (CLEAR); BILIRUBIN,URINE NEGATIVE (NEGATIVE); COLOR,URINE LIGHT YELLOW (YELLOW); GLUCOSE, URINE (UA) NEGATIVE (NEGATIVE); KETONES,URINE NEGATIVE (NEGATIVE); LEUKOCYTE ESTERASE ,URINE NEGATIVE (NEGATIVE); NITRATE,URINE NEGATIVE (NEGATIVE); OCCULT BLOOD,URINE NEGATIVE (NEGATIVE); PROTEIN,URINE NEGATIVE (NEGATIVE); SPECIFIC GRAVITIY, URINE 1.021 (1.003-1.030); UROBILINOGEN,URINE <=1.0 mg/dL (<=1.0)
[2023-07-09 15:48] LABS: ALCOHOL, URINE DRUG SCREEN NEGATIVE (NEGATIVE); AMPHET/METH SCREEN,URINE NEGATIVE (NEGATIVE); BARBITURATE SCREEN, URINE NEGATIVE (NEGATIVE); BENZODIAZEPINES SCREEN,URINE NEGATIVE (NEGATIVE); CANNABINOID SCREEN,URINE NEGATIVE (NEGATIVE); COCAINE SCREEN,URINE NEGATIVE (NEGATIVE); METHADONE SCREEN, URINE NEGATIVE (NEGATIVE); OPIATE SCREEN,URINE NEGATIVE (NEGATIVE); PHENCYCLIDINE SCREEN,URINE NEGATIVE (NEGATIVE)
[2023-07-09] MEDS: OLANZapine 7.5 MG TABLET PO SCH (20:39)
[2023-07-09] MEDS: ATORVASTATIN CALCIUM 40 MG TABLET PO SCH (20:39)
[2023-07-09] MEDS: ZOLPIDEM TARTRATE 10 MG TABLET PO PRN (21:44)
[2023-07-10] MEDS: BuPROPion HCL XL 150 MG ER TABLET PO SCH (08:18)
[2023-07-10] MEDS: ASPIRIN 81 MG CHEWABLE TABLET PO SCH (08:18)
[2023-07-10] MEDS: LORazepam 2 MG TABLET PO PRN (13:01)
[2023-07-10] MEDS: OLANZapine 7.5 MG TABLET PO SCH (20:38)
[2023-07-10] MEDS: ATORVASTATIN CALCIUM 40 MG TABLET PO SCH (20:39)
[2023-07-10] MEDS: ZOLPIDEM TARTRATE 10 MG TABLET PO PRN (21:33)
[2023-07-11] MEDS: ASPIRIN 81 MG CHEWABLE TABLET PO SCH (09:22)
[2023-07-11] MEDS: BuPROPion HCL XL 150 MG ER TABLET PO SCH (09:22)
[2023-07-11] MEDS: OLANZapine 7.5 MG TABLET PO SCH (20:46)
[2023-07-11] MEDS: ZOLPIDEM TARTRATE 10 MG TABLET PO PRN (20:46)
[2023-07-11] MEDS: ATORVASTATIN CALCIUM 40 MG TABLET PO SCH (20:49)
[2023-07-12] MEDS: BuPROPion HCL XL 150 MG ER TABLET PO SCH (10:40)
[2023-07-12] MEDS: ASPIRIN 81 MG CHEWABLE TABLET PO SCH (10:40)
[2023-07-12 13:49] VITALS: BP 129/85; PULSE 84; RESP 19; TEMP 98.1
[2023-07-12] MEDS: LORazepam 2 MG TABLET PO PRN (14:29)
[2023-07-12 20:59] VITALS: BP 161/90; PULSE 89; RESP 18; TEMP 97
[2023-07-12] MEDS: ATORVASTATIN CALCIUM 40 MG TABLET PO SCH (21:44)
[2023-07-12] MEDS: ZOLPIDEM TARTRATE 10 MG TABLET PO PRN (21:44)
[2023-07-12] MEDS: OLANZapine 7.5 MG TABLET PO SCH (21:45)
[2023-07-13 08:30] VITALS: BP 122/76; PULSE 68; RESP 18; TEMP 97.6
[2023-07-13] MEDS: BuPROPion HCL XL 150 MG ER TABLET PO SCH (09:02)
[2023-07-13] MEDS: ASPIRIN 81 MG CHEWABLE TABLET PO SCH (09:02)
[2023-07-13 09:18] VITALS: BP 122/76; PULSE 68; RESP 19; TEMP 97.6
[2023-07-13] MEDS: OLANZapine 7.5 MG TABLET PO SCH (21:03)
[2023-07-13] MEDS: ATORVASTATIN CALCIUM 40 MG TABLET PO SCH (21:03)
[2023-07-13 21:10] VITALS: BP 120/81; PULSE 77; RESP 18; TEMP 98.1
[2023-07-13] MEDS: ZOLPIDEM TARTRATE 10 MG TABLET PO PRN (21:29)
[2023-07-14 10:18] VITALS: RESP 18
[2023-07-14] MEDS: BuPROPion HCL XL 150 MG ER TABLET PO SCH (10:27)
[2023-07-14] MEDS: ASPIRIN 81 MG CHEWABLE TABLET PO SCH (10:27)
[2023-07-14] MEDS: LORazepam 2 MG TABLET PO PRN (14:16)
[2023-07-14] MEDS: OLANZapine 7.5 MG TABLET PO SCH (20:52)
[2023-07-14] MEDS: ATORVASTATIN CALCIUM 40 MG TABLET PO SCH (20:52)
[2023-07-14 20:54] VITALS: BP 154/91; PULSE 73; RESP 20; TEMP 97.4
[2023-07-14] MEDS: ZOLPIDEM TARTRATE 10 MG TABLET PO PRN (21:14)
[2023-07-15 08:52] VITALS: BP 95/60; PULSE 72; RESP 17; TEMP 98.3
[2023-07-15] MEDS: BuPROPion HCL XL 150 MG ER TABLET PO SCH (09:24)
[2023-07-15] MEDS: ASPIRIN 81 MG CHEWABLE TABLET PO SCH (09:25)
[2023-07-15 20:24] VITALS: BP 153/73; PULSE 90; RESP 18; TEMP 98.3
[2023-07-15] MEDS: OLANZapine 7.5 MG TABLET PO SCH (21:03)
[2023-07-15] MEDS: ATORVASTATIN CALCIUM 40 MG TABLET PO SCH (21:03)
[2023-07-15] MEDS: ZOLPIDEM TARTRATE 10 MG TABLET PO PRN (21:03)
[2023-07-16] MEDS: ASPIRIN 81 MG CHEWABLE TABLET PO SCH (08:56)
[2023-07-16] MEDS: BuPROPion HCL XL 150 MG ER TABLET PO SCH (08:56)
[2023-07-16 09:06] VITALS: BP 129/68; PULSE 129; RESP 18; TEMP 98.2
[2023-07-16 09:08] VITALS: BP 129/68; PULSE 66; RESP 18; TEMP 98.1
[2023-07-16] MEDS ORDERED: OLAN7.5T22 PO (13:39)
== END 2023-07-16 18:43 | disposition home or self-care (01) | DRG 750 ==
LOC: EMS 07:05 → 3EI 09:57
PROVIDERS: ADMIT Psychiatry & Neurology Psychiatry; ATTEND Psychiatry & Neurology Psychiatry
DX: F20.9 Schizophrenia, unspecified (principal); R45.851 Suicidal ideations; F41.9 Anxiety disorder, unspecified; M19.90 Unspecified osteoarthritis, unspecified site; E78.00 Pure hypercholesterolemia, unspecified; I10 Essential (primary) hypertension; F43.10 Post-traumatic stress disorder, unspecified; G47.33 Obstructive sleep apnea (adult) (pediatric); G47.00 Insomnia, unspecified; K59.00 Constipation, unspecified; F12.10 Cannabis abuse, uncomplicated; F10.90 Alcohol use, unspecified, uncomplicated; Z20.822 Contact with and (suspected) exposure to COVID-19; J44.9 Chronic obstructive pulmonary disease, unspecified; K21.9 Gastro-esophageal reflux disease without esophagitis; F17.210 Nicotine dependence, cigarettes, uncomplicated; E66.9 Obesity, unspecified; Z96.642 Presence of left artificial hip joint; Z68.38 Body mass index [BMI] 38.0-38.9, adult; Z79.899 Other long term (current) drug therapy; Z79.82 Long term (current) use of aspirin; Z88.5 Allergy status to narcotic agent
CPT/HCPCS: 80053; 80307; 81003; 85025; 99285; G0480

== ENCOUNTER 2023-08-24 06:30 | Inpatient (IN) | payer MEDICAID, OTHER ==
[~2023-08-24] VITALS: Ht 177.8 cm; Wt 131.7 kg
[~2023-08-24 06:30] MED LIST changes: -BUPR-345 PO
[2023-08-24 07:21] LABS: COVID AG,FIA SOURCE NASAL SWAB
[2023-08-24 07:35] LABS: BASOPHILS % (AUTO) 0.8 % (0.0-2.0); EOSINOPHILS % (AUTO) 1.6 % (1.0-6.0); HEMATOCRIT 44.7 % (41-53); HEMOGLOBIN 15.6 g/dL (13.5-17.5); LYMPHOCYTES # (AUTO) 2.2 K/uL (1.0-4.8); LYMPHOCYTES % (AUTO) 23.9 % (22.0-44.0); MEAN CORPUSCULAR HEMOGLOBIN 30.8 pg (26.0-34.0); MEAN CORPUSCULAR HGB CONC 34.8 G/dL (31.0-37.0); MEAN CORPUSCULAR VOLUME 89 fL (80-100); MONOCYTES # (AUTO) 0.6 K/uL (0.1-1.0); NEUTROPHILS # (AUTO) 6.2 K/uL (1.8-7.7); NEUTROPHILS % (AUTO) 67.7 % (40.0-70.0); PLATELET COUNT (AUTO) 208 K/uL (150-450); RED BLOOD CELL COUNT(AUTO) 5.05 MIL/uL (4.50-5.90); RED CELL DISTRIBUTION WIDTH 14.7 % (11.5-14.5); WHITE BLOOD COUNT (AUTO) 9.1 K/uL (4.5-11.0)
[2023-08-24 07:49] LABS: ANION GAP 9 mmol/L (8-16); CALCIUM, TOTAL 9.3 mg/dL (8.8-10.5); CARBON DIOXIDE 25 mmol/L (22-29); CHLORIDE 101 mmol/L (98-107); CREATININE 1.15 mg/dL (0.60-1.30); GLOMERULAR FILTR. RATE CALC > 60 mL/min (>60); GLUCOSE,RANDOM 106 mg/dL (70-110); POTASSIUM 3.6 mmol/L (3.5-5.1); SODIUM SERUM 135 mmol/L (136-145); UREA NITROGEN, BLOOD 6 mg/dL (7-18)
[2023-08-24 07:51] LABS: ALCOHOL, BLOOD (SERUM) < 3 mg/dL (0-10)
[2023-08-24 07:54] LABS: ALANINE AMINOTRANSFERASE 23 U/L (12-78); ALBUMIN 3.5 g/dL (3.4-5.0); ALKALINE PHOSPHATASE 93 U/L (46-116); ASPARTATE AMINOTRANSFERASE 25 U/L (15-37); BILIRUBIN,TOTAL 0.6 mg/dL (0.1-1.0); TOTAL PROTEIN, SERUM 6.8 g/dL (6.4-8.2)
[2023-08-24 08:24] LABS: SARS-COV2 (COVID) ANTIGEN,FIA Negative (Negative)
[2023-08-24 09:19] LABS: ALCOHOL, URINE DRUG SCREEN NEGATIVE (NEGATIVE); AMPHET/METH SCREEN,URINE NEGATIVE (NEGATIVE); BARBITURATE SCREEN, URINE NEGATIVE (NEGATIVE); BENZODIAZEPINES SCREEN,URINE NEGATIVE (NEGATIVE); CANNABINOID SCREEN,URINE NEGATIVE (NEGATIVE); COCAINE SCREEN,URINE NEGATIVE (NEGATIVE); METHADONE SCREEN, URINE NEGATIVE (NEGATIVE); OPIATE SCREEN,URINE NEGATIVE (NEGATIVE); PHENCYCLIDINE SCREEN,URINE NEGATIVE (NEGATIVE)
[2023-08-24] MEDS: LORazepam 2 MG TABLET PO PRN (10:52)
[2023-08-24] MEDS: HALOPERIDOL 5 MG TABLET PO PRN (10:52)
[2023-08-25] MEDS: ZOLPIDEM TARTRATE 10 MG TABLET PO PRN (01:16)
[2023-08-25 01:17] VITALS: BP 137/69; PULSE 96; RESP 18; TEMP 98; O2SAT 96
[2023-08-25] MEDS: INFLUENZA VIRUS VACCINE QVS 2023-24 (6MO+)/PF 60 MCG/0.5 ML SYRINGE IM. ONE (01:30)
[2023-08-25] MEDS ORDERED: LOPERAMIDE HCL 2 MG CAPSULE PO PRN (05:45)
[2023-08-25] MEDS ORDERED: PETROLATUM,WHITE 28 GM JELLY TP PRN (05:45)
[2023-08-25] MEDS ORDERED: CloNIDine HCL 0.1 MG TABLET PO PRN (05:45)
[2023-08-25] MEDS ORDERED: IBUPROFEN 600 MG TABLET PO PRN (05:45)
[2023-08-25] MEDS ORDERED: BENZOCAINE/MENTHOL LOZENGE PO PRN (05:45)
[2023-08-25] MEDS ORDERED: BACITRACIN 28 GM OINTMENT TP PRN (05:45)
[2023-08-25] MEDS ORDERED: DOCUSATE SODIUM 100 MG CAPSULE PO PRN (05:45)
[2023-08-25] MEDS ORDERED: ALBUTEROL SULFATE HFA 90 MCG/PUFF 8 GM INHALER IH PRN (05:45)
[2023-08-25] MEDS ORDERED: ONDANSETRON HCL 4 MG TABLET PO PRN (05:45)
[2023-08-25] MEDS ORDERED: OMEPRAZOLE 20 MG CAPSULE PO PRN (05:45)
[2023-08-25] MEDS ORDERED: MAG HYDROX/ALUMINUM HYD/SIMETH ES 30 ML SUSPENSION UDCUP PO PRN (05:45)
[2023-08-25 08:04] VITALS: BP 122/76; PULSE 71; RESP 18; TEMP 98; O2SAT 95
[2023-08-25 08:40] LABS: CHOLESTEROL 289 mg/dL (131-200); FREE T4 (FREE THYROXINE) 0.92 ng/dL (0.76-1.46); HDL CHOLESTEROL 58 mg/dL (40-60); THYROID STIMULATING HORMONE 1.57 uIU/mL (0.36-3.74); TRIGLYCERIDES 626 mg/dL (15-150)
[2023-08-25] MEDS: ASPIRIN 81 MG CHEWABLE TABLET PO SCH (09:56)
[2023-08-25] MEDS: OLANZapine 5 MG TABLET PO SCH (13:15)
[2023-08-25] MEDS: BuPROPion HCL XL 150 MG ER TABLET PO SCH (13:15)
[2023-08-25] MEDS: ATORVASTATIN CALCIUM 40 MG TABLET PO SCH (20:46)
[2023-08-25] MEDS: OLANZapine 7.5 MG TABLET PO SCH (20:48)
[2023-08-25 23:07] VITALS: BP 132/64; PULSE 64; RESP 19; TEMP 98.6; O2SAT 98
[2023-08-26 08:50] VITALS: BP 140/78; PULSE 64; RESP 18; TEMP 98.3; O2SAT 99
[2023-08-26 20:57] VITALS: BP 143/83; PULSE 99; RESP 17; TEMP 97.9; O2SAT 96
[2023-08-27 00:14] VITALS: O2SAT 97
[2023-08-27 04:01] VITALS: O2SAT 97
[2023-08-27 08:36] VITALS: BP 128/66; PULSE 84; RESP 18; TEMP 98.1; O2SAT 96
[2023-08-27 20:00] VITALS: O2SAT 97
[2023-08-27 21:59] VITALS: BP 122/70; PULSE 81; RESP 18; TEMP 98.1; O2SAT 97
[2023-08-28 00:08] VITALS: O2SAT 94
[2023-08-28 00:12] VITALS: O2SAT 95
[2023-08-28 04:01] VITALS: O2SAT 96
[2023-08-28 08:13] VITALS: BP 135/68; PULSE 73; RESP 18; TEMP 97.9; O2SAT 98
[2023-08-28 20:44] VITALS: BP 143/98; PULSE 77; RESP 18; TEMP 97.8; O2SAT 95
[2023-08-28 22:02] VITALS: O2SAT 95
[2023-08-29 00:10] VITALS: BP 115/76; PULSE 79; RESP 20; TEMP 98; O2SAT 95
[2023-08-29 04:02] VITALS: O2SAT 95
[2023-08-29 08:59] VITALS: BP 139/63; PULSE 58; RESP 16; TEMP 98.2; O2SAT 96
[2023-08-30] VITALS (7 sets, daily range): BP systolic 113–121; BP diastolic 61–88; PULSE 66–81; RESP 16–20; TEMP 96.5–97.9; O2SAT 95–98
[2023-08-31] VITALS: O2SAT 97
[2023-08-31 04:18] VITALS: O2SAT 95
[2023-08-31 08:50] VITALS: BP 122/45; PULSE 72; RESP 17; TEMP 97.4; O2SAT 96
[2023-08-31 09:05] VITALS: BP 123/79
[2023-08-31 20:29] VITALS: BP 116/77; PULSE 63; RESP 16; TEMP 98.5; O2SAT 96
[2023-08-31 21:54] VITALS: O2SAT 96
[2023-09-01] VITALS (7 sets, daily range): RESP 16–18; O2SAT 96–98
[2023-09-01] MEDS: ACETAMINOPHEN 325 MG TABLET PO PRN (18:04)
[2023-09-02 00:22] VITALS: O2SAT 97
[2023-09-02 04:18] VITALS: O2SAT 96
[2023-09-02 09:25] VITALS: BP 120/60; PULSE 65; RESP 19; TEMP 97.6; O2SAT 98
[2023-09-02 17:31] VITALS: BP 135/98
[2023-09-02 20:47] VITALS: BP 120/73; PULSE 81; RESP 17; TEMP 97.8; O2SAT 96
[2023-09-02 21:52] VITALS: O2SAT 95
[2023-09-03 08:30] VITALS: RESP 16
[2023-09-03 22:57] VITALS: BP 137/79; PULSE 85; RESP 18; TEMP 98; O2SAT 95
[2023-09-04 11:09] VITALS: BP 140/70; PULSE 80; RESP 16; TEMP 97.9; O2SAT 100
[2023-09-04] MEDS: MAGNESIUM HYDROXIDE SUSPENSION 30 ML UDCUP PO PRN (12:46)
[2023-09-04 20:51] VITALS: BP 140/72; PULSE 77; RESP 18; TEMP 96.1; O2SAT 98
[2023-09-05 08:20] VITALS: BP 120/60; PULSE 80; RESP 18; TEMP 98; O2SAT 99
[2023-09-05 20:37] VITALS: BP 149/90; PULSE 76; RESP 18; TEMP 97; O2SAT 97
[2023-09-06 08:38] VITALS: BP 126/61; PULSE 74; RESP 18; TEMP 98; O2SAT 95
[2023-09-06] MEDS ORDERED: OLAN5TAB52 PO (14:21)
== END 2023-09-06 16:11 | disposition home or self-care (01) | DRG 750 ==
LOC: EMS 06:31 → B3A 08-25 → B2S 08-29 17:11
PROVIDERS: ADMIT Psychiatry & Neurology Child & Adolescent Psychiatry; ATTEND Psychiatry & Neurology Child & Adolescent Psychiatry
PROC: GZHZZZZ Group Psychotherapy (ICD-10-PCS; principal; 2023-08-25)
DX: F25.1 Schizoaffective disorder, depressive type (principal); E66.9 Obesity, unspecified; F31.9 Bipolar disorder, unspecified; F41.9 Anxiety disorder, unspecified; Z20.822 Contact with and (suspected) exposure to COVID-19; I10 Essential (primary) hypertension; J44.9 Chronic obstructive pulmonary disease, unspecified; Z68.41 Body mass index [BMI] 40.0-44.9, adult; M19.09 Primary osteoarthritis, other specified site; K21.9 Gastro-esophageal reflux disease without esophagitis; F19.10 Other psychoactive substance abuse, uncomplicated; G47.00 Insomnia, unspecified; K59.00 Constipation, unspecified; F12.90 Cannabis use, unspecified, uncomplicated; E78.00 Pure hypercholesterolemia, unspecified; F43.10 Post-traumatic stress disorder, unspecified; G47.33 Obstructive sleep apnea (adult) (pediatric)
CPT/HCPCS: 71046; 80053; 80061; 80307; 84439; 84443; 85025; 99285; G0480; 36415-L1; 36415-TC

== ENCOUNTER 2023-11-12 23:40 | Emergency (ER) | payer MEDICAID, OTHER ==
[~2023-11-12] VITALS: Ht 177.8 cm; Wt 120.9 kg
[~2023-11-12 23:40] MED LIST changes: +ASPI-1444 PO; -ASPI-1450 PO; +OLAN5TAB52 PO
[2023-11-13 01:11] LABS: BASOPHILS % (AUTO) 0.5 % (0.0-2.0); EOSINOPHILS % (AUTO) 1.5 % (1.0-6.0); HEMATOCRIT 42.6 % (41-53); HEMOGLOBIN 14.7 g/dL (13.5-17.5); LYMPHOCYTES # (AUTO) 1.9 K/uL (1.0-4.8); MEAN CORPUSCULAR HEMOGLOBIN 31.4 pg (26.0-34.0); MEAN CORPUSCULAR HGB CONC 34.5 G/dL (31.0-37.0); MEAN CORPUSCULAR VOLUME 91 fL (80-100); MONOCYTES # (AUTO) 1.1 K/uL (0.1-1.0); MONOCYTES % (AUTO) 9.4 % (2.0-9.0); NEUTROPHILS # (AUTO) 8.5 K/uL (1.8-7.7); NEUTROPHILS % (AUTO) 72.6 % (40.0-70.0); PLATELET COUNT (AUTO) 193 K/uL (150-450); RED BLOOD CELL COUNT(AUTO) 4.66 MIL/uL (4.50-5.90); WHITE BLOOD COUNT (AUTO) 11.7 K/uL (4.5-11.0)
[2023-11-13 01:14] LABS: CALCIUM, TOTAL 9.1 mg/dL (8.8-10.5); CREATININE 1.24 mg/dL (0.60-1.30); POTASSIUM 4.2 mmol/L (3.5-5.1)
[2023-11-13 01:20] LABS: ALBUMIN 3.3 g/dL (3.4-5.0); BILIRUBIN,TOTAL 0.7 mg/dL (0.1-1.0); TOTAL PROTEIN, SERUM 7.3 g/dL (6.4-8.2)
[2023-11-13] MEDS: ALBUTEROL SULFATE 2.5 MG/0.5 ML NEB SOLUTION NEB ONE (05:41)
[2023-11-13] MEDS: IPRATROPIUM BROMIDE 0.5 MG/2.5 ML NEB SOLUTION NEB ONE (05:41)
[2023-11-13 05:59] VITALS: PULSE 92; RESP 26; O2SAT 89
[2023-11-13 06:01] VITALS: PULSE 92; RESP 26; O2SAT 89
[2023-11-13 09:43] LABS: INFLUENZA A-RTPCR,COMBO NEGATIVE (NEGATIVE); INFLUENZA B-RTPCR,COMBO NEGATIVE (NEGATIVE); RESPIRATORY SYNCYTIAL VRS-PCR NEGATIVE (NEGATIVE); SARS COVID19 RTPCR, COMBO NEGATIVE (NEGATIVE)
[2023-11-13 10:10] VITALS: BP 126/71; PULSE 69; RESP 17; TEMP 97.8
== END 2023-11-13 10:35 | disposition short-term general hospital (02) ==
LOC: EMS 23:42
DX: F25.9 Schizoaffective disorder, unspecified (principal); J44.9 Chronic obstructive pulmonary disease, unspecified; E78.00 Pure hypercholesterolemia, unspecified; I10 Essential (primary) hypertension; F41.9 Anxiety disorder, unspecified; F31.9 Bipolar disorder, unspecified; F17.210 Nicotine dependence, cigarettes, uncomplicated; F12.90 Cannabis use, unspecified, uncomplicated; Z88.5 Allergy status to narcotic agent; Z20.822 Contact with and (suspected) exposure to COVID-19
CPT/HCPCS: 99285; 0241U; 80053; 83690; 83880; 85025; 36415; 93005; 94060; 71045; 94640; J7613

== ENCOUNTER 2023-12-30 15:24 | Inpatient (IN) | payer MEDICAID ==
[~2023-12-30] VITALS: Ht 177.8 cm; Wt 129.7 kg
[~2023-12-30 15:24] MED LIST changes: -BUPR-49 PO; +LISI-661 PO; -OLAN7.5T22 PO
[2023-12-30] MEDS ORDERED: OLAN10TA74 PO (18:59)
[2023-12-30] MEDS ORDERED: HALOPERIDOL 5 MG TABLET PO PRN (19:00)
[2023-12-31] MEDS: ZOLPIDEM TARTRATE 10 MG TABLET PO PRN (01:09)
[2023-12-31] MEDS ORDERED: IBUPROFEN 600 MG TABLET PO PRN (01:15)
[2023-12-31] MEDS ORDERED: LOPERAMIDE HCL 2 MG CAPSULE PO PRN (01:15)
[2023-12-31] MEDS ORDERED: CloNIDine HCL 0.1 MG TABLET PO PRN (01:15)
[2023-12-31] MEDS ORDERED: PETROLATUM,WHITE 28 GM JELLY TP PRN (01:15)
[2023-12-31] MEDS ORDERED: BENZOCAINE/MENTHOL LOZENGE PO PRN (01:15)
[2023-12-31] MEDS ORDERED: MAG HYDROX/ALUMINUM HYD/SIMETH ES 30 ML SUSPENSION UDCUP PO PRN (01:15)
[2023-12-31] MEDS ORDERED: DOCUSATE SODIUM 100 MG CAPSULE PO PRN (01:15)
[2023-12-31] MEDS ORDERED: OMEPRAZOLE 20 MG CAPSULE PO PRN (01:15)
[2023-12-31] MEDS ORDERED: MAGNESIUM HYDROXIDE SUSPENSION 30 ML UDCUP PO PRN (01:15)
[2023-12-31] MEDS ORDERED: ONDANSETRON HCL 4 MG TABLET PO PRN (01:15)
[2023-12-31] MEDS ORDERED: ALBUTEROL SULFATE HFA 90 MCG/PUFF 8 GM INHALER IH PRN (01:15)
[2023-12-31] MEDS ORDERED: BACITRACIN 28 GM OINTMENT TP PRN (01:15)
[2023-12-31 02:24] VITALS: BP 143/88; PULSE 88; RESP 20; TEMP 98.7
[2023-12-31] MEDS: LORazepam 2 MG TABLET PO PRN (09:28)
[2023-12-31 13:32] VITALS: BP 153/84; PULSE 78; RESP 18; TEMP 98.6; O2SAT 97
[2023-12-31 13:39] VITALS: BP 153/84; PULSE 78; RESP 18; TEMP 98.6
[2023-12-31 20:50] VITALS: BP 151/87; PULSE 86; TEMP 98.1
[2023-12-31] MEDS: OLANZapine 7.5 MG TABLET PO SCH (21:03)
[2024-01-01 09:51] VITALS: BP 119/56; PULSE 71; RESP 20; TEMP 98.7
[2024-01-01] MEDS: ATORVASTATIN CALCIUM 40 MG TABLET PO SCH (21:35)
[2024-01-01 21:49] VITALS: BP 148/80; PULSE 84; RESP 17; TEMP 98.2
[2024-01-02] MEDS: ASPIRIN 81 MG DR TABLET PO SCH (08:53)
[2024-01-02] MEDS: LISINOPRIL 10 MG TABLET PO SCH (08:53)
[2024-01-02 22:01] VITALS: BP 141/82; PULSE 82; RESP 18; TEMP 97.4
[2024-01-03 09:48] VITALS: BP 106/52; PULSE 66; RESP 18; TEMP 97.9
[2024-01-03] MEDS: OLANZapine 10 MG TABLET PO SCH (21:12)
[2024-01-03 21:53] VITALS: BP 128/70; PULSE 71; RESP 19; TEMP 97.9
[2024-01-04 09:01] VITALS: BP 108/62; PULSE 70; RESP 19; TEMP 98
[2024-01-04 14:24] VITALS: BP 153/84; PULSE 100; RESP 18
[2024-01-04 20:30] VITALS: BP 136/80; PULSE 18; RESP 18; TEMP 98.6
[2024-01-05] MEDS: BuPROPion HCL XL 150 MG ER TABLET PO SCH (09:02)
[2024-01-05] MEDS: MODAFINIL 100 MG TABLET PO SCH (09:03)
[2024-01-05 09:15] VITALS: BP 148/90; PULSE 92; RESP 19; TEMP 97.8
[2024-01-05 17:58] VITALS: BP 148/88; PULSE 90; RESP 18
[2024-01-05] MEDS: ACETAMINOPHEN 325 MG TABLET PO PRN (18:02)
[2024-01-05 19:01] VITALS: RESP 18
[2024-01-05 20:32] VITALS: BP 128/87; PULSE 95; RESP 18; TEMP 96.9
[2024-01-06] MEDS: BuPROPion HCL XL 150 MG ER TABLET PO SCH (08:10)
[2024-01-06] MEDS: MODAFINIL 100 MG TABLET PO SCH (08:11)
[2024-01-06 09:06] VITALS: BP 147/58; PULSE 98; RESP 20; TEMP 97.4
[2024-01-06 20:13] VITALS: BP 132/84; PULSE 86; RESP 18; TEMP 97.4
[2024-01-06 20:46] VITALS: BP 137/82; PULSE 88; RESP 18; TEMP 97.9
[2024-01-07 14:47] VITALS: BP 143/77; PULSE 80; RESP 18; TEMP 98
[2024-01-07 20:55] VITALS: BP 131/78; PULSE 87; RESP 18; TEMP 97.7
[2024-01-08 07:38] LABS: ALANINE AMINOTRANSFERASE 40 U/L (12-78); ALBUMIN 3.2 g/dL (3.4-5.0); ALKALINE PHOSPHATASE 111 U/L (46-116); ANION GAP 10 mmol/L (8-16); ASPARTATE AMINOTRANSFERASE 21 U/L (15-37); BILIRUBIN,TOTAL 0.5 mg/dL (0.1-1.0); CALCIUM, TOTAL 9.2 mg/dL (8.8-10.5); CARBON DIOXIDE 27 mmol/L (22-29); CHLORIDE 102 mmol/L (98-107); CHOL/HDL RATIO 5.1 (4.2-7.3); CHOLESTEROL 203 mg/dL (131-200); CREATININE 0.98 mg/dL (0.60-1.30); GLOMERULAR FILTR. RATE CALC > 60 mL/min (>60); GLUCOSE,RANDOM 108 mg/dL (70-110); HDL CHOLESTEROL 40 mg/dL (40-60); LDL CHOL (CALC.) 107 mg/dL (0-130); SODIUM SERUM 139 mmol/L (136-145); TOTAL PROTEIN, SERUM 6.8 g/dL (6.4-8.2); TRIGLYCERIDES 278 mg/dL (15-150); UREA NITROGEN, BLOOD 14 mg/dL (7-18)
[2024-01-08 09:06] VITALS: BP 117/67; PULSE 81; RESP 18; TEMP 98.1
[2024-01-08 21:28] VITALS: BP 123/80; PULSE 68; RESP 18; TEMP 98.1
[2024-01-09 08:00] VITALS: BP 130/76; PULSE 77; RESP 18; TEMP 98.3
[2024-01-09 21:06] VITALS: BP 137/85; PULSE 90; RESP 18; TEMP 97.9
[2024-01-10 08:10] VITALS: BP 129/65; PULSE 67; RESP 18; TEMP 98
[2024-01-10 21:22] VITALS: BP 137/86; PULSE 86; RESP 18; TEMP 97.9
[2024-01-11] MEDS: BuPROPion HCL XL 150 MG ER TABLET PO SCH (08:55)
[2024-01-11 21:40] VITALS: BP 133/81; PULSE 85; RESP 19; TEMP 98.2
[2024-01-12] MEDS: MODAFINIL 100 MG TABLET PO SCH (08:04)
[2024-01-12 11:26] VITALS: BP 118/63; PULSE 62; RESP 18; TEMP 96.6
[2024-01-12 20:35] VITALS: BP 120/79; PULSE 84; RESP 18
[2024-01-13 09:29] VITALS: BP 108/60; PULSE 66; RESP 18; TEMP 97.3
[2024-01-13 20:35] VITALS: BP 119/76; PULSE 86; RESP 18; TEMP 97.9
[2024-01-14] MEDS: MODAFINIL 100 MG TABLET PO SCH (08:25)
[2024-01-14 09:13] VITALS: BP 118/70; PULSE 81; RESP 17; TEMP 97.8
[2024-01-14] MEDS ORDERED: BUPR-514 PO (14:10)
[2024-01-14] MEDS ORDERED: OLAN10TA74 PO (14:10)
[2024-01-14] MEDS ORDERED: MODA100T65 PO (14:10)
[2024-01-14 21:34] VITALS: BP 117/76; PULSE 83; RESP 18; TEMP 97.7
[2024-01-15 09:40] VITALS: BP 129/76; PULSE 87; RESP 18; TEMP 98.4
[2024-01-15 09:41] VITALS: BP 129/76; PULSE 87; RESP 18; TEMP 98.4
== END 2024-01-15 15:18 | disposition home or self-care (01) | DRG 750 ==
LOC: 3EI 12-31 01:04
PROVIDERS: ADMIT Psychiatry & Neurology Psychiatry; ATTEND Psychiatry & Neurology Psychiatry
PROC: GZHZZZZ Group Psychotherapy (ICD-10-PCS; principal; 2024-01-01)
PROC: GZ51ZZZ Individual Psychotherapy, Behavioral (ICD-10-PCS; 2024-01-01)
DX: F25.9 Schizoaffective disorder, unspecified (principal); R45.851 Suicidal ideations; F31.9 Bipolar disorder, unspecified; I10 Essential (primary) hypertension; J44.9 Chronic obstructive pulmonary disease, unspecified; Z59.00 Homelessness unspecified; F41.9 Anxiety disorder, unspecified; Z68.41 Body mass index [BMI] 40.0-44.9, adult; K21.9 Gastro-esophageal reflux disease without esophagitis; M16.9 Osteoarthritis of hip, unspecified; F12.90 Cannabis use, unspecified, uncomplicated; F19.10 Other psychoactive substance abuse, uncomplicated; F10.20 Alcohol dependence, uncomplicated
CPT/HCPCS: 80053; 80061; 87081